=== PATIENT | female | born 1935 | race African-American/Black ===

== ENCOUNTER 2018-06-26 21:12 | Inpatient (IN) | payer MEDICARE, BC ==
[~2018-06-26 21:12] MED LIST: ISOVUE-370 76%-LOCM 1 ML ONE
[2018-06-26] MEDS ORDERED: Furosemide 40 MG/4 ML VIAL ONE (21:42)
[2018-06-26] MEDS ORDERED: Nitroglycerin 0.4 MG TAB (25 Tab Bottle) ONE (21:42)
[2018-06-26] MEDS ORDERED: Nitroglycerin 2% Ointment 1 INCH/1 GM Packet ONE (21:42)
[2018-06-26 21:47] LABS: #Basophils 0.1 thou/uL (0.0-0.2); #Eosinphils 0.1 thou/uL (0.0-0.7); #Lymphocytes 2.1 thou/uL (1.20-3.40); #Monocytes 0.6 thou/uL (0.11-0.59); #Neutrophils 3.9 thou/uL (1.40-6.50); %Basophils 0.8 % (0.0-1.0); %Eosinophils 1.5 % (0.0-10.0); %Lymphocytes 31.2 % (21.0-51.0); %Monocytes 8.5 % (0.0-10.0); %Neutrophils 57.9 % (42.0-75.0); Hemoglobin 13.2 g/dL (12.0-16.0); Mean Corpuscular HGB CONC 31.9 g/dL (32.0-36.0); Mean Corpuscular Hemoglobin 31.9 pg (27.0-31.0); Mean Corpuscular Volume 99.7 fL (78.0-98.0); Mean Platelet Volume 10.8 fL (7.4-10.4); Platelet Count 134 thou/uL (130-400); Red Blood Cell (RBC) Count 4.13 mill/uL (4.20-5.40); White Blood Cell (WBC) Count 6.6 thou/uL (4.8-10.8)
[2018-06-26 22:13] LABS: CKMB 3.8 ng/mL (0-6.6); Troponin I 0.079 ng/mL (< 0.028)
--- NOTE | 2018-06-26 22:37 | RAD ---
AP VIEW CHEST: 06/26/18 HISTORY: Dyspnea. Shortness of breath. AP view chest is obtained on 06/26/18. Comparison made to previous exam from 01/19/16. AP view chest demonstrates cardiomegaly. A dual lead intracardiac defibrillator is seen. Pulmonary va scular congestion seen. No evidence of effusions or pneumonia seen. IMPRESSION: Cardiomegaly and pulmonary vascular congestion, otherwise unremarkable AP view chest. POS: [facility]
[2018-06-26 22:44] LABS: ALT (SGPT) 43 U/L (8-55); AST (SGOT) 26 U/L (5-34); Albumin 4.3 g/dL (3.4-4.8); Alkaline Phosphatase 57 U/L (40-150); Anion Gap 13 mmol/L (10-20); BUN (Urea Nitrogen) 13 mg/dL (9.8-20.1); Bilirubin, Total 0.9 mg/dL (0.2-1.2); CK (CPK) 250 U/L (29-168); Calc. Creatinine Clearance 0 mL/min (70-130); Calcium 9.4 mg/dL (7.8-10.44); Carbon Dioxide 29 mmol/L (23-31); Chloride 101 mmol/L (98-107); Estimated GFR-MDRD 63; Globulin 3.3 g/dL (2.4-3.5); Glucose 231 mg/dL (83-110); Lipase 15 U/L (8-78); Potassium 3.9 mmol/L (3.5-5.1); Protein, Total 7.6 g/dL (6.0-8.3); Sodium 139 mmol/L (136-145)
--- NOTE | 2018-06-26 23:38 | CT ---
CONTRAST ENHANCED CTA CHEST: 06/26/18 HISTORY: Bilateral lower extremity swelling. Contrast enhanced CTA chest demonstrates a dual lead intracardiac defibrillator. Diffuse ground glass opacities seen throughout the lungs compatible with possible pulmonary edema. Cardiomegaly is seen. Coronary artery calcifications seen. No evidence of filling defects seen in the pulmonary arteries to suggest pulmonary emboli. There is an area of hyperdensity seen in the mid pole of the left kidney possibly representing a hype rdense cyst or mass which had internal hemorrhage. Correlate with dedicated elective urologic evaluat ion of the left renal lesion. No definite evidence of osseous lesions seen. IMPRESSION: No evidence of pulmonary emboli seen. POS: [facility]
[2018-06-27 00:37] VITALS: BMI 36.3
[2018-06-27] MEDS ORDERED: Ondansetron PF 4 MG/2 ML Vial IVP PRN (00:53)
[2018-06-27] MEDS ORDERED: Ondansetron ODT 4 MG TAB SL PRN (00:53)
--- NOTE | 2018-06-27 01:36 | PDOC.FPRHP ---
- History of Present Illness Chief Complaint: SOB, leg swelling History of Present Illness: 82 yo F with CHFrEF with AICD placement presents with SOB and lower leg swelling. She has a longstanding history of CHFrEF in which she takes max dose lasix (80mg BID). At baseline she is mildly SOB with lower leg swelling for the past 6 months but her symptoms had worsened to the point where she "couldn't get dressed" without feeling SOB. She denies chest pain, REA, nausea, diaphoresis. ED Course: ASA, Lasix 40 x1, TD Nitro, SL Nitro - Allergies/Adverse Reactions Allergies Allergy/AdvReac Type Severity Reaction Status Date / Time Penicillins Allergy Severe Hives Verified 06/27/18 01:37 verapamil HCl [From Calan] Allergy Severe Swollen Verified 06/27/18 01:37 Lips codeine Allergy Intermediate Rash Verified 06/27/18 01:37 tramadol Allergy Intermediate Rash Verified 06/27/18 01:37 ROYAL Inhibitors Allergy COUGH Verified 06/27/18 01:37 ciprofloxacin Allergy Nausea Verified 06/27/18 02:07 morphine Allergy Nausea Verified 06/27/18 01:37 nitrofurantoin Allergy Nausea Verified 06/27/18 02:07 [From Macrobid] - Home Medications Medication Instructions Recorded Confirmed Type Atorvastatin Calcium [Lipitor] 80 mg PO HS 02/05/14 06/27/18 History Levothyroxine [Synthroid] 137 mcg PO DAILY 02/05/14 06/27/18 History Carvedilol [Coreg] 25 mg PO BID 10/25/16 06/27/18 History Diclofenac Sodium [Voltaren] 100 gm TP ASDIR PRN 10/25/16 06/27/18 History Insulin Glargine,Hum.Rec.Anlog 56 - 70 units SC QAM 10/25/16 06/27/18 History [Lantus Solostar] Sotalol HCl [Sotalol] 120 mg PO BID 10/25/16 06/27/18 History Acetaminophen [Tylenol Regular 650 mg PO Q4H PRN #0 tab 01/07/17 06/27/18 Rx Strength] Albuterol Sulfate [Proventil Hfa] 2 puff INH Q6H PRN #0 inh 01/07/17 06/27/18 Rx Ezetimibe [Zetia] 10 mg PO DAILY tab 01/07/17 06/27/18 Rx Gabapentin [Neurontin] 300 mg PO TID cap 01/07/17 06/27/18 Rx HumaLOG [HumaLOG Vial] 5 units SC TID-WM vial 01/07/17 06/27/18 Rx Multivit, Therapeutic [Theragran] 1 tab PO DAILY tab 01/07/17 06/27/18 Rx Potassium Chloride [K-Dur] 20 meq PO Q2D tab 01/07/17 06/27/18 Rx Potassium Chloride [Klor-Con 10] 10 meq PO Q2D tab 01/07/17 06/27/18 Rx Spironolactone [Aldactone] 50 mg PO QAM-WM tab 01/07/17 06/27/18 Rx Amlodipine Besylate [amLODIPine 5 mg PO DAILY 01/27/17 06/27/18 History Besylate] Aspirin [Ecotrin Low Strength] 81 mg PO QAM 01/27/17 06/27/18 History ALPRAZolam [Xanax] 0.25 mg PO BID PRN 06/27/18 06/27/18 History Albuterol Sulfate [Albuterol 1.25 mg NEB QID 06/27/18 06/27/18 History Sulfate Neb] Artificial Tear Radha 15ml Bot 1 drop EA EYE DAILY 06/27/18 06/27/18 History [Tears Renewed] Ascorbate Calcium [Vitamin C] 500 mg PO DAILY 06/27/18 06/27/18 History Bisacodyl [Dulcolax] 5 mg PO TID-WM 06/27/18 06/27/18 History Calcium Carbonate [Calcium] 500 mg PO DAILY 06/27/18 06/27/18 History Furosemide [Lasix] 80 mg PO BID 06/27/18 06/27/18 History HYDROcodone/Acetaminophen [Lydia 1 each PO Q6H PRN 06/27/18 06/27/18 History 10-325 Tablet] Magnesium Oxide [Magnesium] 400 mg PO DAILY 06/27/18 06/27/18 History Valencia-3 Fatty Acids/Fish Oil [Fish 1 cap PO DAILY 06/27/18 06/27/18 History Oil 1,000 mg Capsule] Pantoprazole [Protonix] 40 mg PO DAILY 06/27/18 06/27/18 History Zinc Amino Acid Chelate [Zinc] 50 mg PO DAILY 06/27/18 06/27/18 History - History PMHx: Hx of bladder CA s/p tumor removal, atrial tachycardia s/p ablation, HLD, CHFrEF, Cardiomyopathy, HTN, Hypothyroid, DM2, atrial arrh PSHx: Debrillator placement, bladder tumor excision, cataracts FHx: CAD, CVA Social: Denies tobacco, etoh, drugs - Review of Systems General: reports: weight/appetite/sleep changes. denies: fever/chills ENT: denies: nasal congestion, rhinorrhea Respiratory: reports: cough, shortness of breath, exercise intolerance Cardiovascular: reports: edema. denies: chest pain, palpitation Gastrointestinal: reports: diarrhea. denies: nausea, vomiting, constipation Genitourinary: denies: dysuria, discharge Skin: denies: rashes, lesions Musculoskeletal: denies: pain, tenderness, stiffness, swelling Neurological: denies: numbness, syncope Psychological: denies: anxiety, depression - Vital signs BP: [191/93] HR: [76] RR: [16] Tmax: [98.1] Pox: [98]% on [RA] Wt: [95] - Physical Exam Constitutional: NAD, awake, alert and oriented, well developed HEENT: normocephalic and atraumatic, PERRLA, EOMI, conjunctiva clear Neck: supple, FROM Chest: no-tender to palpation, no lesions Heart: RRR, no murmurs/rubs/gallops, pulses present Lungs: CTAB, no rales/rhonchi, no wheezing -Lungs: decreased breath sounds in lower bilateral lobes Abdomen: soft, non-tender -Abdomen: mildly distended, no peritoneal signs Musculoskeletal: normal structure, normal tone -Musculoskeletal: BLE 2+ pitting edema up to mid anterior shins Neurological: no focal deficit Skin: no rash/lesions, good turgor, capillary refill <2 seconds Heme/Lymphatic: no unusual bruising or bleeding, no purpura, no petechia Psychiatric: normal mood and affect FMR H&P: Results - Labs Result Diagrams: 06/27/18 04:23 06/27/18 04:23 Lab results: WBC 6.6 thou/uL (4.8-10.8) 06/26/18 21:38 Hgb 13.2 g/dL (12.0-16.0) 06/26/18 21:38 Hct 41.2 % (36.0-47.0) 06/26/18 21:38 MCV 99.7 fL (78.0-98.0) H 06/26/18 21:38 Plt Count 134 thou/uL (130-400) 06/26/18 21:38 Neutrophils % 57.9 % (42.0-75.0) 06/26/18 21:38 Sodium 139 mmol/L (136-145) 06/26/18 21:38 Potassium 3.9 mmol/L (3.5-5.1) 06/26/18 21:38 Chloride 101 mmol/L (98-107) 06/26/18 21:38 Carbon Dioxide 29 mmol/L (23-31) 06/26/18 21:38 BUN 13 mg/dL (9.8-20.1) 06/26/18 21:38 Creatinine 1.02 mg/dL (0.6-1.1) 06/26/18 21:38 Glucose 231 mg/dL (83-110) H 06/26/18 21:38 Calcium 9.4 mg/dL (7.8-10.44) 06/26/18 21:38 Total Bilirubin 0.9 mg/dL (0.2-1.2) 06/26/18 21:38 AST 26 U/L (5-34) 06/26/18 21:38 ALT 43 U/L (8-55) 06/26/18 21:38 Alkaline Phosphatase 57 U/L (40-150) 06/26/18 21:38 Creatine Kinase 250 U/L (29-168) H 06/26/18 21:38 CK-MB (CK-2) 3.8 ng/mL (0-6.6) 06/26/18 21:38 B-Natriuretic Peptide 440.7 pg/mL (0-100) H 06/26/18 21:38 Serum Total Protein 7.6 g/dL (6.0-8.3) 06/26/18 21:38 Albumin 4.3 g/dL (3.4-4.8) 06/26/18 21:38 Lipase 15 U/L (8-78) 06/26/18 21:38 FMR H&P: A/P - Problem List (1) Hypertensive urgency Current Visit: Yes Status: Acute Code(s): I16.0 - HYPERTENSIVE URGENCY (2) Acute exacerbation of CHF (congestive heart failure) Current Visit: No Status: Acute Code(s): I50.9 - HEART FAILURE, UNSPECIFIED (3) Hyperlipidemia associated with type 2 diabetes mellitus Current Visit: No Status: Acute Code(s): E11.69 - TYPE 2 DIABETES MELLITUS WITH OTHER SPECIFIED COMPLICATION; E78.5 - HYPERLIPIDEMIA, UNSPECIFIED (4) CHF (congestive heart failure) Current Visit: No Status: Chronic Code(s): I50.9 - HEART FAILURE, UNSPECIFIED (5) History of neoplasm of bladder Current Visit: No Status: Chronic Code(s): Z87.898 - PERSONAL HISTORY OF OTHER SPECIFIED CONDITIONS (6) Hypertension Current Visit: No Status: Chronic Code(s): I10 - ESSENTIAL (PRIMARY) HYPERTENSION (7) Hypothyroidism Current Visit: No Status: Chronic Code(s): E03.9 - HYPOTHYROIDISM, UNSPECIFIED Qualifiers: Hypothyroidism type: unspecified Qualified Code(s): E03.9 - Hypothyroidism , unspecified - Plan 82 yo F with CHFrEF and AICD here for acute CHF exacerbation and hypertensive urgency 1. Decompensated chronic heart failure -s/p lasix 40mg in ED -trops indeterminate, will continue to trend -elevated Ddimer, CTA negative for PE -lasix 80mg BID, strict I/O, daily weights, O2 prn -will resume home spironolactone, hold beta steve -last echo in 2015 showing EF of 40-45%, may have had outpt echo with Dr. Morley -will request records, can consider repeat echo if not had one recently 2. Hypertensive urgency -BP in ED SBP >200, asx at this time -likely 2/2 to hypervolemia -s/p TD and SL Nitro in ED -will resume home meds, add PRN anti hypertensives -continue to monitor BPs, should improve with diuresis 3. Non-ischemic cardiomyopathy -follows with Dr. Morley outpt -has f/u appt next month #chronic CHF -see #1 # Hypothyroidism -TSH on 05/29/18 was elevated at 6 -will recheck & resume home synthroid #Chronic HTN -resume home meds #DM2 -resume home meds -mild SS #HLD -resume home meds dvt ppx: lovenox gi ppx: home protonix Disposition/LOS: <2 midnights FMR H&P: Upper Level - Pertinent history 82AAF p/w increasing SOB and BLE edema. This is an ongoing issue but she felt more tired than usual today which prompted her ER visit. Last TTE per review of records in [facility] shows an EF of 40%. She has a cardiac history that includes a-fib s/p ablations and bi-ventricular ICD placement. She normally takes coumadin but this has been discontinued due to hematuria. 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 Menard. Today, patient denies CP, palpitations, diaphoresis, n/v/d. ED: ASA 324 mg, Lasix 40mg IV, Nitro-bid 1", nitro SL 0.4mg - Pertinent findings vitals: 178/72 mmHg 86 bpm 20 RRR 97% on RA 98.9F Gen: A&Ox3; in no acute distress CV: RRR; no murmurs Pulm: CTA-B Abd: soft; nonTTP; non distended Skin: no rashes or lesions Extremities: 2+ pitting edema to knees D-dimer: 1.76 B CK: 250 trop: .079 BNP: 440 CTA chest: no pulmonary embolism CXR: cardiomegaly and pulmonary vascular congestion - Plan Date/Time: 06/27/18 0130 HFrEF exacerbation: admit to tele/obs given history of biventricular ICD placement and a-fib. Nonischemic cardiomyopathy: last TTE in 2015 shows an EF of 40%. She sees Dr. Caleb Morley in the OP setting. Continue home medications History of transitional cell carcinoma: s/p transurethral resection by Dr. Menard HTN: pressures elevated in ED due to volume overload. Expect improvement with continued diuresis. Restart home medications and order PRN medications HLD: continue home medications Hypothyroidism: continue home dose of synthroid Atrial fibrillation: s/p junctional ablation, now with AICD. Monitor on Tele. Patient has d/c coumadin due to #2. CTA negative for PE in ED DMII: restart home insulin regimen. Moderate SSI with accuchecks qACHS CKDII: GFR at baseline. Expect an increase in Cr 2/2 aggressive diuresis with Lasix History of restrictive lung disease: diagnosed and managed by Dr. Amato in OP setting. No respiratory issues at this time. I, Liam Sim, have evaluated this patient and agree with findings/plan as outlined by landscape maintenance internship resident. Pertinent changes/additions are listed here. Attending Addendum - Attending Addendum Date/Time: 06/26/18 8804 I personally evaluated the patient and discussed the management with Dr. Rodgers and Dr. Sim I agree with the History, Examination, Assessment and Plan documented above with any addition or exceptions noted below. 82 yo female with history of HFrEF admitted for acute exacerbation Patient reports progressive SOB with minimal activity and occasionally at rest. VS reviewed. Labs reviewed. Imaging reviewed. 1. HFrEF with AICD: Recent outpatient ECHO performed last week. Patient unsure of EF at that time. Unsure etiology of current exacerbation. Appears to not be on the same home meds as previously that could help with HF exacerbations. Follow up with cards off. ASA and Statin. Strict I/Os and daily wts. Fluid restriction. Admit to tele. Lasix as needed. Trend labs and EKG. 2. HTN urgency: Could be explained by change in medications. Will review MAR with pharmacy/PCP/Cards. 3. A-fib: Anticoag held due to bladder cancer. Patient aware of risk. On tele monitoring. 4. CKDII: Monitor closely. 5. Hypothyroidism: Check TSH. Adjust meds as needed. 6. DM: Adjust meds to prevent severe hyperglycemia. Adjust home meds as needed. Minimized risk as appropriate. Susana
[2018-06-27] MEDS ORDERED: Dextrose 50% Abboject 50 ML SYRINGE SLOW IVP PRN (02:02)
[2018-06-27] MEDS ORDERED: Dextrose 5% in Water 1,000 ML IV PRN (02:02)
[2018-06-27] MEDS ORDERED: Enoxaparin Sodium 30 MG/0.3 ML SYRINGE SC SCH (02:15)
--- NOTE | 2018-06-27 02:16 | PDOC.FPRHP ---
- Allergies/Adverse Reactions Allergies Allergy/AdvReac Type Severity Reaction Status Date / Time Penicillins Allergy Severe Hives Verified 01/27/17 10:05 verapamil HCl [From Calan] Allergy Severe Swollen Verified 01/27/17 10:05 Lips codeine Allergy Intermediate Rash Verified 01/27/17 10:05 tramadol Allergy Intermediate Rash Verified 01/27/17 10:05 ROYAL Inhibitors Allergy COUGH Verified 01/27/17 10:05 morphine Allergy Nausea Verified 01/27/17 10:05 - Home Medications Medication Instructions Recorded Confirmed Type Atorvastatin Calcium [Lipitor] 80 mg PO HS 02/05/14 01/27/17 History Levothyroxine [Synthroid] 150 mcg PO DAILY 02/05/14 01/27/17 History Carvedilol [Coreg] 25 mg PO BID 10/25/16 01/27/17 History Diclofenac Sodium [Voltaren] 100 gm TP ASDIR 10/25/16 01/27/17 History Insulin Glargine,Hum.Rec.Anlog 56 units SC QAM 10/25/16 01/27/17 History [Lantus Solostar] Sotalol HCl [Sotalol] 120 mg PO BID 10/25/16 01/27/17 History ALPRAZolam [Xanax] 0.25 mg PO BID tab 01/07/17 01/27/17 Rx Acetaminophen [Tylenol Regular 650 mg PO Q4H PRN #0 tab 01/07/17 01/27/17 Rx Strength] Albuterol Sulfate [Proventil Hfa] 2 puff INH Q6H PRN #0 inh 01/07/17 01/27/17 Rx Artificial Tear Radha 15ml Bot 0 drop EA EYE DAILY bot 01/07/17 01/27/17 Rx [Tears Renewed] Betamethasone Valerate [Valisone 0 gm TOP BID PRN #0 tube 01/07/17 01/27/17 Rx 0.1% Cream] Cyclobenzaprine [Flexeril] 10 mg PO TID PRN #0 tab 01/07/17 01/27/17 Rx Docusate [Colace] 100 mg PO BID #30 cap 01/07/17 01/27/17 Rx Ezetimibe [Zetia] 10 mg PO DAILY tab 01/07/17 01/27/17 Rx Furosemide [Lasix] 40 mg PO BID tab 01/07/17 01/27/17 Rx Gabapentin [Neurontin] 300 mg PO TID cap 01/07/17 01/27/17 Rx HYDROcodone Bit/APAP 7.5/325 1 tab PO Q6H PRN #0 tab 01/07/17 01/27/17 Rx [[place]] HumaLOG [HumaLOG Vial] 5 units SC TID-WM vial 01/07/17 01/27/17 Rx Multivit, Therapeutic [Theragran] 1 tab PO DAILY tab 01/07/17 01/27/17 Rx Potassium Chloride [K-Dur] 20 meq PO Q2D tab 01/07/17 01/27/17 Rx Potassium Chloride [Klor-Con 10] 10 meq PO Q2D tab 01/07/17 01/27/17 Rx Spironolactone [Aldactone] 50 mg PO QAM-WM tab 01/07/17 01/27/17 Rx Albuterol Sulfate [Proair HFA] 2 puff INH Q6HR PRN 01/27/17 01/27/17 History Amlodipine Besylate [amLODIPine 5 mg PO DAILY 01/27/17 01/27/17 History Besylate] Aspirin [Ecotrin Low Strength] 81 mg PO QAM 01/27/17 01/27/17 History - History PMHx: PSHx: FHx: Social: - Vital signs BP: [] HR: [] RR: [] Tmax: [] Pox: []% on [] Wt: [] FMR H&P: Results - Labs Result Diagrams: 06/26/18 21:38 06/26/18 21:38 Lab results: WBC 6.6 thou/uL (4.8-10.8) 06/26/18 21:38 Hgb 13.2 g/dL (12.0-16.0) 06/26/18 21:38 Hct 41.2 % (36.0-47.0) 06/26/18 21:38 MCV 99.7 fL (78.0-98.0) H 06/26/18 21:38 Plt Count 134 thou/uL (130-400) 06/26/18 21:38 Neutrophils % 57.9 % (42.0-75.0) 06/26/18 21:38 Sodium 139 mmol/L (136-145) 06/26/18 21:38 Potassium 3.9 mmol/L (3.5-5.1) 06/26/18 21:38 Chloride 101 mmol/L (98-107) 06/26/18 21:38 Carbon Dioxide 29 mmol/L (23-31) 06/26/18 21:38 BUN 13 mg/dL (9.8-20.1) 06/26/18 21:38 Creatinine 1.02 mg/dL (0.6-1.1) 06/26/18 21:38 Glucose 231 mg/dL (83-110) H 06/26/18 21:38 Calcium 9.4 mg/dL (7.8-10.44) 06/26/18 21:38 Total Bilirubin 0.9 mg/dL (0.2-1.2) 06/26/18 21:38 AST 26 U/L (5-34) 06/26/18 21:38 ALT 43 U/L (8-55) 06/26/18 21:38 Alkaline Phosphatase 57 U/L (40-150) 06/26/18 21:38 Creatine Kinase 250 U/L (29-168) H 06/26/18 21:38 CK-MB (CK-2) 3.8 ng/mL (0-6.6) 06/26/18 21:38 B-Natriuretic Peptide 440.7 pg/mL (0-100) H 06/26/18 21:38 Serum Total Protein 7.6 g/dL (6.0-8.3) 06/26/18 21:38 Albumin 4.3 g/dL (3.4-4.8) 06/26/18 21:38 Lipase 15 U/L (8-78) 06/26/18 21:38 FMR H&P: Upper Level - Plan Date/Time: 06/27/18 0115 I, [], have evaluated this patient and agree with findings/plan as outlined by paid intern resident. Pertinent changes/additions are listed here.
[2018-06-27] MEDS ORDERED: hydrALAZINE 20 MG/ML VIAL SLOW IVP SCH (02:30)
[2018-06-27] MEDS: Acetaminophen 325 MG TAB PO PRN ×2 (03:11→12:02)
[2018-06-27 04:47] LABS: #Eosinphils 0.1 thou/uL (0.0-0.7); #Lymphocytes 1.9 thou/uL (1.20-3.40); #Monocytes 0.6 thou/uL (0.11-0.59); #Neutrophils 3.2 thou/uL (1.40-6.50); %Basophils 0.8 % (0.0-1.0); %Eosinophils 1.6 % (0.0-10.0); %Lymphocytes 32.4 % (21.0-51.0); %Monocytes 10.3 % (0.0-10.0); %Neutrophils 54.9 % (42.0-75.0); Hemoglobin 12.6 g/dL (12.0-16.0); Mean Corpuscular HGB CONC 33.5 g/dL (32.0-36.0); Mean Corpuscular Hemoglobin 34.4 pg (27.0-31.0); Mean Platelet Volume 10.4 fL (7.4-10.4); Platelet Count 130 thou/uL (130-400); RBC Distribution Width 14.5 % (11.5-14.5); Red Blood Cell (RBC) Count 3.68 mill/uL (4.20-5.40); White Blood Cell (WBC) Count 5.9 thou/uL (4.8-10.8)
[2018-06-27 04:57] LABS: ALT (SGPT) 37 U/L (8-55); AST (SGOT) 19 U/L (5-34); Albumin 4.1 g/dL (3.4-4.8); Alkaline Phosphatase 55 U/L (40-150); Anion Gap 14 mmol/L (10-20); BUN (Urea Nitrogen) 12 mg/dL (9.8-20.1); Bilirubin, Total 0.9 mg/dL (0.2-1.2); Calc. Creatinine Clearance 69 mL/min (70-130); Calcium 9.3 mg/dL (7.8-10.44); Carbon Dioxide 29 mmol/L (23-31); Chloride 100 mmol/L (98-107); Estimated GFR-MDRD 66; Glucose 266 mg/dL (83-110); Potassium 3.5 mmol/L (3.5-5.1); Protein, Total 7.1 g/dL (6.0-8.3); Sodium 139 mmol/L (136-145)
[2018-06-27 05:00] LABS: Troponin I 0.083 ng/mL (< 0.028)
[2018-06-27] MEDS ORDERED: Furosemide 40 MG/4 ML VIAL SLOW IVP SCH ×2 (06:00)
[2018-06-27] MEDS ORDERED: Nitroglycerin 2% Ointment 1 INCH/1 GM Packet TOP SCH (06:00)
[2018-06-27] MEDS: Levothyroxine Sodium 112 MCG TAB PO SCH (06:11)
[2018-06-27] MEDS: Levothyroxine Sodium 25 MCG TAB PO SCH (06:11)
[2018-06-27] MEDS: Spironolactone 25 MG TAB PO SCH (08:40)
[2018-06-27] MEDS: Ascorbic Acid 500 mg Chewable Tablet PO SCH (08:41)
[2018-06-27] MEDS: Fish Oil 1,000 MG CAP PO SCH (08:41)
[2018-06-27] MEDS: Potassium Chloride 20 MEQ TAB PO SCH (08:41)
[2018-06-27] MEDS: Multivit, Therapeutic 1 TAB PO SCH (08:41)
[2018-06-27] MEDS: Gabapentin 300 MG CAP PO SCH ×3 (08:41→20:36)
[2018-06-27] MEDS: Amlodipine 5 MG TAB PO SCH (08:41)
--- NOTE | 2018-06-27 08:41 | PDOC.FM ---
- Subjective Subjective: Patient reports she is doing better overnight from a respiratory standpoint, is not becoming SOB at rest. She reports her leg edema is somewhat improved. Not exactly sure what is causing her current episode, has not missed any doses or experienced increased pain causing NSAID use. Does report that her BG has been increased, but is not sure why. Endorses medication and diet compliance. - Objective MAR Reviewed: Yes Vital Signs & Weight: Vital Signs (12 hours) Temp Pulse Resp BP BP Pulse Ox 06/27/18 07:49 99 F 79 18 121/55 L 99 06/27/18 05:55 73 169/86 H 06/27/18 05:00 176/90 H 06/27/18 04:00 98.2 F 74 16 192/86 H 100 06/27/18 02:58 76 186/99 H 186/99 H 06/27/18 00:32 98.4 F 74 16 191/93 H 97 Weight Weight 97.477 kg Result Diagrams: 06/27/18 04:23 06/27/18 04:23 <Devon Aquino M - Last Filed: 06/27/18 09:26> - Objective Vital Signs & Weight: Vital Signs (12 hours) Temp Pulse Resp BP BP Pulse Ox 06/27/18 07:49 99 F 79 18 121/55 L 99 06/27/18 05:55 73 169/86 H 06/27/18 05:00 176/90 H 06/27/18 04:00 98.2 F 74 16 192/86 H 100 06/27/18 02:58 76 186/99 H 186/99 H 06/27/18 00:32 98.4 F 74 16 191/93 H 97 Weight Weight 97.477 kg Result Diagrams: 06/27/18 04:23 06/27/18 04:23 <Aurora Dill - Last Filed: 06/27/18 23:18> Phys Exam - Physical Examination Constitutional: NAD HEENT: moist MMs Respiratory: no wheezing, clear to auscultation bilateral Cardiovascular: RRR Gastrointestinal: positive bowel sounds b/l 2+ pitting edema of LE to the mid calf Neurological: normal sensation, moves all 4 limbs Psychiatric: A&O x 3 <Devon Aquino - Last Filed: 06/27/18 09:26> Dx/Plan (1) Hypertensive urgency Code(s): I16.0 - HYPERTENSIVE URGENCY Status: Acute (2) Acute exacerbation of CHF (congestive heart failure) Code(s): I50.9 - HEART FAILURE, UNSPECIFIED Status: Acute (3) Diabetes mellitus type 2, uncontrolled Code(s): E11.65 - TYPE 2 DIABETES MELLITUS WITH HYPERGLYCEMIA Status: Chronic Qualifiers: Qualified Code(s): E11.65 - Type 2 diabetes mellitus with hyperglycemia (4) History of atrial fibrillation Code(s): Z86.79 - PERSONAL HISTORY OF OTHER DISEASES OF THE CIRCULATORY SYSTEM Status: Chronic (5) History of neoplasm of bladder Code(s): Z87.898 - PERSONAL HISTORY OF OTHER SPECIFIED CONDITIONS Status: Chronic (6) Hypertension Code(s): I10 - ESSENTIAL (PRIMARY) HYPERTENSION Status: Chronic (7) Hypothyroidism Code(s): E03.9 - HYPOTHYROIDISM, UNSPECIFIED Status: Chronic Qualifiers: Hypothyroidism type: unspecified Qualified Code(s): E03.9 - Hypothyroidism , unspecified - Plan Plan: CHF exacerbation: continue with increased IV lasix dose at 80mg bid, was taking 80mg po bid at home. K is 3.5 so we will replace that to make sure it stays in an appropriate range. Also check a mag level. Tele strip shows atrial pacing. DMII: suspect this could be the source of the CHF exacerbation. She is elevated here so we will try to titrate her basal insulin to keep her controlled, but will likely need management in the outpatient setting. HTN urgency: nurses got a different cuff and patient's BP were in a normal range so the elevated BP on admission could be due to bad cuff reading. Continue to [facility]. Hypothyroid: continue with current regimen. <Devon Aquino - Last Filed: 06/27/18 09:26> Attending Addendum - Attending Addendum Date/Time: 06/27/18 0645 I personally evaluated the patient and discussed the management with Dr. Aquino I agree with the History, Examination, Assessment and Plan documented above with any addition or exceptions noted below. 82 yo female with history of HFrEF admitted for acute exacerbation HD#1 Improved symptoms with frequent voiding. VS reviewed. Labs reviewed. Imaging reviewed. 1. HFrEF with AICD: Recent outpatient ECHO performed last week. Unsure etiology of current exacerbation but likely dietary. Strict I/Os and daily wts. Fluid restriction. Continue lasix as needed. Review cardiac meds with pharmacy/PCP -- BB, ARB, bidil, etc 2. HTN urgency: Could be explained by change in medications. Will review MAR with pharmacy/PCP/Cards. 3. A-fib: Anticoag held due to bladder cancer. Patient aware of risk. On tele monitoring. CTA negative. 4. CKDII: Monitor closely. 5. Hypothyroidism: Stable. 6. DM: Adjust meds to prevent severe hyperglycemia. Adjust home meds as needed. Minimized risk as appropriate. Susana <Aurora Dill - Last Filed: 06/27/18 23:18>
[2018-06-27] MEDS: HumaLOG 300 UNITS/3 ML VIAL SC SCH ×3 (08:42→18:08)
[2018-06-27] MEDS ORDERED: Levothyroxine 150 MCG TAB PO SCH (09:00)
[2018-06-27] MEDS ORDERED: Carvedilol 25 MG TAB PO SCH (09:00)
[2018-06-27] MEDS ORDERED: Aspirin 325 MG TAB PO SCH (09:00)
[2018-06-27] MEDS: Insulin Glargine 56 UNITS in Pre-Filled Syringe 1 EACH SC SCH (09:03)
[2018-06-27] MEDS ORDERED: Polyethylene Glycol 3350 17 GM Packet PO SCH ×2 (14:28→14:45)
[2018-06-27] MEDS: Senokot S 8.6-50 MG TAB PO SCH (20:35)
[2018-06-27] MEDS: Atorvastatin Calcium 40 MG TAB PO SCH (20:36)
[2018-06-28] MEDS: Levothyroxine Sodium 112 MCG TAB PO SCH (05:18)
[2018-06-28] MEDS: Levothyroxine Sodium 25 MCG TAB PO SCH (05:18)
[2018-06-28 05:52] LABS: Anion Gap 11 mmol/L (10-20); BUN (Urea Nitrogen) 14 mg/dL (9.8-20.1); Calc. Creatinine Clearance 81 mL/min (70-130); Calcium 9.2 mg/dL (7.8-10.44); Carbon Dioxide 32 mmol/L (23-31); Chloride 101 mmol/L (98-107); Estimated GFR-MDRD 78; Glucose 132 mg/dL (83-110); Potassium 3.7 mmol/L (3.5-5.1); Sodium 140 mmol/L (136-145)
--- NOTE | 2018-06-28 06:40 | PDOC.FM ---
- Subjective Subjective: Ms. Mayfield is resting comfortably in bed and has no new complaints - Objective Vital Signs & Weight: Vital Signs (12 hours) Temp Pulse Resp BP BP Pulse Ox 06/28/18 03:44 98.0 F 84 20 174/94 H 94 L 06/27/18 23:13 98.5 F 80 20 145/70 H 100 06/27/18 20:36 98.6 F 82 18 179/84 H 100 Weight Weight 96.933 kg I&O: 06/26/18 06/27/18 06/28/18 06:59 06:59 05:59 Intake Total 1440 Output Total 2900 Balance -1460 Result Diagrams: 06/27/18 04:23 06/28/18 05:15 <Minesh Mak - Last Filed: 06/28/18 11:03> - Objective Vital Signs & Weight: Vital Signs (12 hours) Temp Pulse Resp BP BP Pulse Ox 06/28/18 08:16 98.9 F 80 18 172/87 H 100 06/28/18 03:44 98.0 F 84 20 174/94 H 94 L 06/27/18 23:13 98.5 F 80 20 145/70 H 100 Weight Weight 96.933 kg I&O: 06/27/18 06/28/18 06/29/18 07:59 06:59 06:59 Intake Total Output Total Balance Result Diagrams: 06/27/18 04:23 06/28/18 05:15 <Aurora Dill - Last Filed: 06/28/18 19:41> Phys Exam - Physical Examination HEENT: PERRLA Neck: no nodes Respiratory: no wheezing, no rales, no rhonchi, clear to auscultation bilateral Cardiovascular: RRR, no significant murmur, no rub Gastrointestinal: soft, non-tender, no distention Musculoskeletal: no edema, pulses present Neurological: moves all 4 limbs <Minesh Mak - Last Filed: 06/28/18 11:03> Dx/Plan - Plan Plan: Decompensated chronic heart failure -trops downtrended, elevated Ddimer, CTA negative for PE -strict I/O, daily weights, O2 prn -will resume home spironolactone, consider restarting beta steve today -last echo in 2016 showing EF of 40-45%, recently had outpt echo with Dr. Morley -restart home dose 80 mg lasix bid Hypertensive urgency -will resume home meds, PRN anti hypertensives -continue to monitor BPs, consider adding additional medications today Non-ischemic cardiomyopathy -follows with Dr. Morley outpt -has f/u appt next month Hypothyroidism -TSH on 05/29/18 was elevated at 6 -will recheck & resume home synthroid Chronic HTN -resume home meds DM2 -resume home meds -mild SS, improved HLD -resume home meds dvt ppx: lovenox gi ppx: home protonix Dispo: continue to diurese today, improve BP control <Minesh Mak - Last Filed: 06/28/18 11:03> Attending Addendum - Attending Addendum Date/Time: 06/28/18 0855 I personally evaluated the patient and discussed the management with Dr. Mak I agree with the History, Examination, Assessment and Plan documented above with any addition or exceptions noted below. 82 yo female with history of HFrEF admitted for acute exacerbation HD#2 Still with some edema to LE. No SOB or CABRAL per patient. BP still elevated. Not all home meds restarted yesterday. VS reviewed. Labs reviewed. 1. Acute exacerbation: HFrEF with AICD. Recent outpatient ECHO performed last week. Will obtain records tomorrow. Unsure etiology of current exacerbation but likely dietary and/or HTN urgency. Strict I/Os and daily wts. Fluid restriction. Continue lasix as needed. Restart BB, ARB, spironolactone. 2. HTN urgency: Called pharmacy to verify all meds. Add bidil vs CCB vs Imdur if remains elevated after restarting home meds. 3. A-fib: Anticoag held due to bladder cancer. Patient aware of risk. On tele monitoring. CTA negative. 4. CKDII: Renal function improved. 5. Hypothyroidism: Stable. 6. DM: Adjust meds to prevent severe hyperglycemia. Adjust home meds as needed. Add BP as needed. Minimized risk as appropriate. Likely d/c this afternoon vs AM. ABrayMD <Aurora Dill - Last Filed: 06/28/18 19:41>
[2018-06-28] MEDS: Senokot S 8.6-50 MG TAB PO SCH ×2 (09:04→21:05)
[2018-06-28] MEDS: Amlodipine 5 MG TAB PO SCH (09:04)
[2018-06-28] MEDS: Fish Oil 1,000 MG CAP PO SCH (09:04)
[2018-06-28] MEDS: Multivit, Therapeutic 1 TAB PO SCH (09:04)
[2018-06-28] MEDS: Ascorbic Acid 500 mg Chewable Tablet PO SCH (09:04)
[2018-06-28] MEDS: Gabapentin 300 MG CAP PO SCH ×3 (09:05→21:05)
[2018-06-28] MEDS: Insulin Glargine 56 UNITS in Pre-Filled Syringe 1 EACH SC SCH (09:05)
[2018-06-28] MEDS: HumaLOG 300 UNITS/3 ML VIAL SC SCH ×3 (09:05→17:23)
[2018-06-28] MEDS: Polyethylene Glycol 3350 17 GM Packet PO SCH (09:08)
[2018-06-28] MEDS ORDERED: Furosemide 40 MG/4 ML VIAL SLOW IVP SCH (09:15)
[2018-06-28] MEDS: Spironolactone 25 MG TAB PO SCH (09:54)
[2018-06-28] MEDS ORDERED: DICLOFENAC SODIUM 100 GM TP PRN (10:47)
[2018-06-28] MEDS ORDERED: Carvedilol 25 MG TAB PO ONE (10:51)
[2018-06-28] MEDS ORDERED: VOLTAREN TOP SCH (11:00)
[2018-06-28] MEDS: Potassium Chloride 10 MEQ TAB PO SCH (11:12)
[2018-06-28] MEDS: Bisacodyl 5 MG TAB PO SCH ×2 (11:37→17:23)
[2018-06-28] MEDS ORDERED: Sotalol HCl 80 MG TAB PO ONE (13:00)
[2018-06-28] MEDS: Furosemide 80 MG TAB PO SCH (15:15)
[2018-06-28] MEDS ORDERED: Carvedilol 25 MG TAB PO SCH (20:00)
[2018-06-28] MEDS ORDERED: Furosemide 40 MG TAB PO SCH (21:00)
[2018-06-28] MEDS ORDERED: Non-Formulary Item 1 EACH (Sotalol Hcl [Sotalol] 120 MG) PO SCH (21:00)
[2018-06-28] MEDS: Sotalol HCl 80 MG TAB PO SCH (21:04)
[2018-06-28] MEDS: Atorvastatin Calcium 40 MG TAB PO SCH (21:04)
[2018-06-28] MEDS: Acetaminophen 325 MG TAB PO PRN (21:06)
[2018-06-28] MEDS: HumaLOG 300 UNITS/3 ML VIAL SC PRN (21:06)
[2018-06-28] MEDS: guaiFENesin ER 600 MG TAB PO PRN (22:23)
--- NOTE | 2018-06-29 05:55 | PDOC.FM ---
- Subjective Subjective: Ms. Mayfield is sitting up in bed, she reports swollen feet and cough. She has no other complaints - Objective Vital Signs & Weight: Vital Signs (12 hours) Temp Pulse Resp BP BP BP Pulse Ox 06/29/18 04:00 98.0 F 74 20 115/58 L 95 06/29/18 03:00 95 06/28/18 22:22 69 20 135/69 06/28/18 21:05 97.9 F 72 20 125/58 L 99 06/28/18 20:55 97.9 F 72 20 125/58 L 99 Weight Weight 96.933 kg I&O: 06/27/18 06/28/18 06/29/18 07:59 06:59 06:59 Intake Total 720 Output Total 2125 Balance -1405 Result Diagrams: 06/27/18 04:23 06/28/18 05:15 <Minesh Mak - Last Filed: 06/29/18 07:02> - Objective Vital Signs & Weight: Vital Signs (12 hours) Temp Pulse Pulse Pulse Resp BP BP 06/29/18 19:34 97.9 F 71 20 06/29/18 16:00 97.6 F 70 16 06/29/18 12:36 80 133/67 06/29/18 12:00 98 F 71 16 06/29/18 10:47 84 74 154/75 H BP BP Pulse Ox Pulse Ox Pulse Ox 06/29/18 19:34 120/58 L 95 06/29/18 16:00 124/73 97 06/29/18 12:36 06/29/18 12:00 133/67 96 06/29/18 10:47 133/67 96 93 L Weight Weight 96.162 kg I&O: 06/28/18 06/29/18 06/30/18 06:59 06:59 06:59 Intake Total 1035 730 Output Total 2125 840 Balance -1090 -110 Result Diagrams: 06/27/18 04:23 06/28/18 05:15 <Kan Anderson - Last Filed: 06/29/18 21:08> Phys Exam - Physical Examination Constitutional: NAD HEENT: PERRLA, moist MMs Neck: no nodes Respiratory: no wheezing, no rales, no rhonchi, clear to auscultation bilateral Cardiovascular: RRR, no rub, gallop Gastrointestinal: soft, non-tender, no distention Musculoskeletal: pulses present edema much improved Neurological: non-focal, moves all 4 limbs Lymphatic: no nodes Psychiatric: normal affect Skin: no rash <Minesh Mak - Last Filed: 06/29/18 07:02> Dx/Plan (1) Hypertensive urgency Code(s): I16.0 - HYPERTENSIVE URGENCY Status: Resolved (2) Acute exacerbation of CHF (congestive heart failure) Code(s): I50.9 - HEART FAILURE, UNSPECIFIED Status: Resolved (3) Cough Code(s): R05 - COUGH Status: Acute (4) Diabetes mellitus type 2 in obese Code(s): E11.9 - TYPE 2 DIABETES MELLITUS WITHOUT COMPLICATIONS; E66.9 - OBESITY , UNSPECIFIED Status: Chronic (5) History of atrial fibrillation Code(s): Z86.79 - PERSONAL HISTORY OF OTHER DISEASES OF THE CIRCULATORY SYSTEM Status: Chronic (6) Hypothyroidism Code(s): E03.9 - HYPOTHYROIDISM, UNSPECIFIED Status: Chronic Qualifiers: Hypothyroidism type: unspecified Qualified Code(s): E03.9 - Hypothyroidism , unspecified - Plan Plan: Decompensated chronic heart failure -trops downtrended, elevated Ddimer, CTA negative for PE -strict I/O, daily weights, O2 prn -Home medications restarted, tolerating well -last echo in 2015 showing EF of 40-45%, recently had outpt echo with Dr. Morley -continued diuresies on home dose lasix Hypertensive urgency -will resume home meds, PRN anti hypertensives -blood pressure at goal, no PRNs needed Non-ischemic cardiomyopathy -follows with Dr. Morley outpt -has f/u appt next month Hypothyroidism -TSH on 05/29/18 was elevated at 6 - home synthroid resumed Chronic HTN -resume home meds DM2 -resume home meds -mild SS, improved HLD -resume home meds dvt ppx: lovenox gi ppx: home protonix Dispo: diueresing well on home medication, pressures controlled, possible DC today <Minesh Mak - Last Filed: 06/29/18 07:02> Attending Addendum - Attending Addendum Date/Time: 06/29/182107 I personally evaluated the patient and discussed the management with Dr. Mak and team. I agree with and repeated the History, Examination, Assessment and Plan documented above with any addition or exceptions noted below. Still hypervolemic and uncomfortable with going home. Continue diuresis and monitor. <Kan Anderson - Last Filed: 06/29/18 21:08>
[2018-06-29] MEDS: Levothyroxine Sodium 112 MCG TAB PO SCH (06:17)
[2018-06-29] MEDS: Levothyroxine Sodium 25 MCG TAB PO SCH (06:17)
[2018-06-29] MEDS: Insulin Glargine 56 UNITS in Pre-Filled Syringe 1 EACH SC SCH (08:45)
[2018-06-29] MEDS: Senokot S 8.6-50 MG TAB PO SCH ×2 (08:47→21:16)
[2018-06-29] MEDS: Polyethylene Glycol 3350 17 GM Packet PO SCH (08:47)
[2018-06-29] MEDS: Spironolactone 25 MG TAB PO SCH (08:47)
[2018-06-29] MEDS: Gabapentin 300 MG CAP PO SCH ×3 (08:47→21:16)
[2018-06-29] MEDS: Furosemide 80 MG TAB PO SCH ×2 (08:48→15:02)
[2018-06-29] MEDS: Aspirin 81 mg Enteric Coated Tablet PO SCH (08:48)
[2018-06-29] MEDS: Magnesium Oxide 400 MG TAB PO SCH (08:48)
[2018-06-29] MEDS: Multivit, Therapeutic 1 TAB PO SCH (08:48)
[2018-06-29] MEDS: Ascorbic Acid 500 mg Chewable Tablet PO SCH (08:48)
[2018-06-29] MEDS: Ezetimibe 10 MG TAB PO SCH (08:48)
[2018-06-29] MEDS: Amlodipine 5 MG TAB PO SCH (08:49)
[2018-06-29] MEDS: Carvedilol 25 MG TAB PO SCH ×2 (08:50→17:11)
[2018-06-29] MEDS: Bisacodyl 5 MG TAB PO SCH ×3 (08:50→17:15)
[2018-06-29] MEDS: Fish Oil 1,000 MG CAP PO SCH (08:50)
[2018-06-29] MEDS: Calcium Carbonate 500 MG TAB PO SCH (08:51)
[2018-06-29] MEDS ORDERED: ZINC AMINO ACID CHELATE PO SCH (09:00)
[2018-06-29] MEDS ORDERED: Non-Formulary Item 1 EACH (Magnesium Oxide [Magnesium] 400 MG) PO SCH (09:00)
[2018-06-29] MEDS: HumaLOG 300 UNITS/3 ML VIAL SC SCH ×3 (09:01→17:13)
[2018-06-29] MEDS: Potassium Chloride 20 MEQ TAB PO SCH (10:52)
[2018-06-29] MEDS: Zinc Sulfate 220 MG CAP PO SCH (10:52)
[2018-06-29] MEDS ORDERED: Furosemide 20 MG/2 ML VIAL SLOW IVP SCH (12:15)
[2018-06-29] MEDS: HumaLOG 300 UNITS/3 ML VIAL SC PRN ×2 (12:35→21:17)
[2018-06-29] MEDS: Sotalol HCl 80 MG TAB PO SCH ×2 (12:36→21:15)
[2018-06-29] MEDS: Artificial Tear Sol 15 ML BOT EA EYE SCH (17:16)
[2018-06-29] MEDS: Acetaminophen 325 MG TAB PO PRN ×2 (19:31→23:38)
[2018-06-29] MEDS: Atorvastatin Calcium 40 MG TAB PO SCH (21:17)
[2018-06-29] MEDS: guaiFENesin ER 600 MG TAB PO PRN (21:17)
--- NOTE | 2018-06-30 06:02 | PDOC.FM ---
- Subjective Subjective: Ms. Mayfield is resting comfortably in bed, she has no new complaints. She denies increased leg swelling, shortness of breath or chest pain - Objective Vital Signs & Weight: Vital Signs (12 hours) Temp Pulse Resp BP BP Pulse Ox 06/30/18 04:00 97.6 F 72 18 130/78 96 06/29/18 21:12 95 06/29/18 19:34 97.9 F 71 20 120/58 L 95 Weight Weight 96.162 kg I&O: 06/28/18 06/29/18 06/30/18 06:59 06:59 06:59 Intake Total 1035 730 Output Total 2125 840 Balance -1090 -110 Result Diagrams: 06/27/18 04:23 06/28/18 05:15 <Minesh Mak - Last Filed: 06/30/18 07:15> - Objective Vital Signs & Weight: Vital Signs (12 hours) Temp Pulse Resp BP BP BP Pulse Ox 06/30/18 10:12 70 133/81 06/30/18 08:00 98.0 F 70 18 133/81 99 06/30/18 04:00 97.6 F 72 18 130/78 96 Weight Weight 96.162 kg I&O: 06/29/18 06/30/18 07/01/18 06:59 06:59 06:59 Intake Total 1035 1158 Output Total 2125 1240 Balance -1090 -82 Result Diagrams: 06/27/18 04:23 06/28/18 05:15 <Kan Anderson - Last Filed: 06/30/18 12:58> Phys Exam - Physical Examination Constitutional: NAD HEENT: PERRLA Neck: no nodes Respiratory: no wheezing, no rales, no rhonchi, clear to auscultation bilateral Cardiovascular: RRR, no significant murmur, no rub Gastrointestinal: soft, no distention Musculoskeletal: pulses present edema improved to 1+ around the feet and ankle Neurological: non-focal, moves all 4 limbs Psychiatric: normal affect Skin: no rash <Minesh Mak - Last Filed: 06/30/18 07:15> Dx/Plan (1) Hypertensive urgency Code(s): I16.0 - HYPERTENSIVE URGENCY Status: Resolved (2) Acute exacerbation of CHF (congestive heart failure) Code(s): I50.9 - HEART FAILURE, UNSPECIFIED Status: Resolved (3) Cough Code(s): R05 - COUGH Status: Acute (4) Diabetes mellitus type 2 in obese Code(s): E11.9 - TYPE 2 DIABETES MELLITUS WITHOUT COMPLICATIONS; E66.9 - OBESITY , UNSPECIFIED Status: Chronic (5) History of atrial fibrillation Code(s): Z86.79 - PERSONAL HISTORY OF OTHER DISEASES OF THE CIRCULATORY SYSTEM Status: Chronic (6) Hypothyroidism Code(s): E03.9 - HYPOTHYROIDISM, UNSPECIFIED Status: Chronic Qualifiers: Hypothyroidism type: unspecified Qualified Code(s): E03.9 - Hypothyroidism , unspecified - Plan Plan: Decompensated chronic heart failure -trops downtrended, elevated Ddimer, CTA negative for PE -strict I/O, daily weights, O2 prn - neg 1090 fluid balance yesterday -Home medications restarted, tolerating well -last echo in 2015 showing EF of 40-45%, recently had outpt echo with Dr. Morley -continued diuresies on home dose lasix Hypertensive urgency -will resume home meds, PRN anti hypertensives -blood pressure at goal, no PRNs needed Non-ischemic cardiomyopathy -follows with Dr. Morley outpt -has f/u appt next month Hypothyroidism -TSH on 05/29/18 was elevated at 6 - home synthroid resumed Chronic HTN -resume home meds DM2 -resume home meds -mild SS, improved HLD -resume home meds dvt ppx: lovenox gi ppx: home protonix Dispo: diueresing well on home medication, pressures controlled, possible DC today <Minesh Mak - Last Filed: 06/30/18 07:15> Attending Addendum - Attending Addendum Date/Time: 06/30/18 3151 I personally evaluated the patient and discussed the management with Dr. Mak. I agree with and repeated the History, Examination, Assessment and Plan documented above with any addition or exceptions noted below. Pt states she has had fatigue and CABRAL the last month. We just found out last TTE at outpatient visit was 18 months ago. Will proceed with TTE and if no additional therapy needed will plan on d/c. <Kan Andesron - Last Filed: 06/30/18 12:58>
[2018-06-30] MEDS: Levothyroxine Sodium 25 MCG TAB PO SCH (06:19)
[2018-06-30] MEDS: Levothyroxine Sodium 112 MCG TAB PO SCH (06:19)
[2018-06-30] MEDS: Insulin Glargine 56 UNITS in Pre-Filled Syringe 1 EACH SC SCH (10:09)
[2018-06-30] MEDS: HumaLOG 300 UNITS/3 ML VIAL SC SCH ×3 (10:09→17:05)
[2018-06-30] MEDS: Ascorbic Acid 500 mg Chewable Tablet PO SCH (10:10)
[2018-06-30] MEDS: Magnesium Oxide 400 MG TAB PO SCH (10:11)
[2018-06-30] MEDS: Potassium Chloride 10 MEQ TAB PO SCH (10:11)
[2018-06-30] MEDS: Furosemide 80 MG TAB PO SCH ×2 (10:11→15:13)
[2018-06-30] MEDS: Multivit, Therapeutic 1 TAB PO SCH (10:11)
[2018-06-30] MEDS: Ezetimibe 10 MG TAB PO SCH (10:11)
[2018-06-30] MEDS: Spironolactone 25 MG TAB PO SCH (10:11)
[2018-06-30] MEDS: Calcium Carbonate 500 MG TAB PO SCH (10:11)
[2018-06-30] MEDS: Gabapentin 300 MG CAP PO SCH ×3 (10:11→20:36)
[2018-06-30] MEDS: Bisacodyl 5 MG TAB PO SCH ×3 (10:12→17:03)
[2018-06-30] MEDS: Aspirin 81 mg Enteric Coated Tablet PO SCH (10:12)
[2018-06-30] MEDS: Polyethylene Glycol 3350 17 GM Packet PO SCH (10:12)
[2018-06-30] MEDS: Fish Oil 1,000 MG CAP PO SCH (10:12)
[2018-06-30] MEDS: Senokot S 8.6-50 MG TAB PO SCH ×2 (10:12→20:37)
[2018-06-30] MEDS: Amlodipine 5 MG TAB PO SCH (10:12)
[2018-06-30] MEDS: Carvedilol 25 MG TAB PO SCH ×2 (10:12→17:04)
[2018-06-30] MEDS: Artificial Tear Sol 15 ML BOT EA EYE SCH (10:13)
--- NOTE | 2018-06-30 11:10 | PQF ---
CLINICAL DOCUMENTATION IMPROVEMENT CLARIFICATION FORM: ICD-10 Updated PLEASE DO AN ADDENDUM TO THE PROGRESS NOTE WITH ANY DOCUMENTATION UPDATES OR ADDITIONS AND CARRY THROUGH TO DC SUMMARY. THANK YOU. DATE: 06/30/18 ATTN: DR. CASE Please exercise your independent, professional judgment in responding to the clarification form. Clinical indicators are provided on the bottom of this form for your review Please check appropriate box(s): HEART FAILURE: A. TYPE: [ x] Systolic / HFrEF [ ] Diastolic / HFpEF [ ] Combined Systolic / Diastolic B. ACUITY [ ] Acute [ x] Acute on Chronic [ ] Chronic [ ] Other diagnosis [ ] Unable to determine In addition, please specify: Present on Admission (POA): [ x] Yes [ ] No [ ] Unable to determine For continuity of documentation, please document condition throughout progress notes and discharge summary. Thank You. CLINICAL INDICATORS - SIGNS / SYMPTOMS / LABS H&P: "ACUTE EXACERBATION OF CHF" "DECOMPENSATED CHRONIC HEART FAILURE" CHEST XRAY: "SEVERE CONGESTIVE HEART FAILURE" (ER NOTE) PROGRESS NOTE 06/28: "ACUTE EXACERBATION" BNP 440.7 RISKS: H/O CHF HYPERTENSION TREATMENT: IV LASIX (ER) LASIX PO (06/28-PRESENT) COREG (06/29-PRESENT) TELEMETRY MONITORING SAP [employer] Winform Viewer (This form is maintained as a part of the permanent medical record) 2014 [employer]. All Rights Reserved AKI [email or web address] Office: [phone] [facility]
[2018-06-30] MEDS: Zinc Sulfate 220 MG CAP PO SCH (13:20)
[2018-06-30] MEDS: HumaLOG 300 UNITS/3 ML VIAL SC PRN ×2 (13:20→17:06)
[2018-06-30] MEDS: Sotalol HCl 80 MG TAB PO SCH ×3 (13:21→20:36)
[2018-06-30] MEDS ORDERED: PROVENTIL INHALER 6.7 G (200 INHALATIONS) INH PRN (19:22)
[2018-06-30] MEDS: Atorvastatin Calcium 40 MG TAB PO SCH (20:36)
[2018-06-30] MEDS: Albuterol Sulfate 1.25 MG/3 ML NEB NEB SCH (21:17)
[2018-07-01] MEDS: Levothyroxine Sodium 112 MCG TAB PO SCH (05:44)
[2018-07-01] MEDS: Levothyroxine Sodium 25 MCG TAB PO SCH (05:44)
--- NOTE | 2018-07-01 06:34 | PDOC.FM ---
- Subjective Subjective: Ms. Mayfield is resting comfortably in bed, she has resumed home breathing treatments and is feeling less SOB/cough. she denies CP or any new complaints - Objective Vital Signs & Weight: Vital Signs (12 hours) Temp Pulse Resp BP BP Pulse Ox 07/01/18 04:00 97.9 F 80 18 151/57 H 95 06/30/18 21:17 63 18 97 06/30/18 20:36 74 06/30/18 20:28 98.0 F 74 18 128/67 95 Weight Weight 96.797 kg I&O: 06/29/18 06/30/18 07/01/18 06:59 06:59 06:59 Intake Total 1035 1158 1210 Output Total 2125 1240 400 Balance -1090 -82 810 Result Diagrams: 06/27/18 04:23 06/28/18 05:15 <Minesh Mak - Last Filed: 07/01/18 08:46> - Objective Vital Signs & Weight: Vital Signs (12 hours) Temp Pulse Resp BP BP BP Pulse Ox 07/01/18 13:59 75 16 07/01/18 11:40 69 07/01/18 11:36 98.1 F 69 16 135/67 96 07/01/18 10:22 70 16 96 07/01/18 08:56 69 144/78 H 07/01/18 08:05 98.2 F 69 17 144/78 H 98 07/01/18 06:51 64 14 99 07/01/18 04:00 97.9 F 80 18 151/57 H 95 Weight Weight 96.797 kg I&O: 06/30/18 07/01/18 07/02/18 06:59 06:59 06:59 Intake Total 1158 1210 Output Total 1240 400 Balance -82 810 Result Diagrams: 06/27/18 04:23 07/01/18 08:00 <Kan Anderson - Last Filed: 07/01/18 14:14> Phys Exam - Physical Examination Constitutional: NAD Respiratory: no wheezing, no rales, no rhonchi, clear to auscultation bilateral Cardiovascular: RRR, no significant murmur, no rub edema improved, 1+ around ankles Neurological: moves all 4 limbs Skin: no rash <Minesh Mak - Last Filed: 07/01/18 08:46> Dx/Plan (1) Hypertensive urgency Code(s): I16.0 - HYPERTENSIVE URGENCY Status: Resolved (2) Acute exacerbation of CHF (congestive heart failure) Code(s): I50.9 - HEART FAILURE, UNSPECIFIED Status: Resolved (3) Cough Code(s): R05 - COUGH Status: Acute (4) Diabetes mellitus type 2 in obese Code(s): E11.9 - TYPE 2 DIABETES MELLITUS WITHOUT COMPLICATIONS; E66.9 - OBESITY , UNSPECIFIED Status: Chronic (5) History of atrial fibrillation Code(s): Z86.79 - PERSONAL HISTORY OF OTHER DISEASES OF THE CIRCULATORY SYSTEM Status: Chronic (6) Hypothyroidism Code(s): E03.9 - HYPOTHYROIDISM, UNSPECIFIED Status: Chronic Qualifiers: Hypothyroidism type: unspecified Qualified Code(s): E03.9 - Hypothyroidism , unspecified - Plan Plan: Decompensated chronic heart failure -trops downtrended, elevated Ddimer, CTA negative for PE -strict I/O, daily weights, O2 prn -Home medications restarted, tolerating well -last echo in 2016 showing EF of 40-45%, repeat echo yesterday, awaiting read - pt does not tolerate ROYAL-I, or ARB medications Hypertensive urgency -will resume home meds, PRN anti hypertensives -blood pressure at goal, no PRNs needed Non-ischemic cardiomyopathy -follows with Dr. Morley outpt -has f/u appt next month Hypothyroidism -TSH on 05/29/18 was elevated at 6 - home synthroid resumed Chronic HTN -resume home meds DM2 -resume home meds -mild SS, improved HLD -resume home meds dvt ppx: lovenox gi ppx: home protonix Dispo: pressures controlled, if echo results today unchanged from previous: DC today <Minesh Mak - Last Filed: 07/01/18 08:46> Attending Addendum - Attending Addendum Date/Time: 07/01/18 1413 I personally evaluated the patient and discussed the management with Dr. aMk. I agree with and repeated the History, Examination, Assessment and Plan documented above with any addition or exceptions noted below. No cp/sob/n/v. Exam improved. Await TTE and discharge. <Kan Anderson - Last Filed: 07/01/18 14:14>
[2018-07-01] MEDS: Albuterol Sulfate 1.25 MG/3 ML NEB NEB SCH ×4 (06:51→19:10)
[2018-07-01 08:49] LABS: Anion Gap 12 mmol/L (10-20); BUN (Urea Nitrogen) 17 mg/dL (9.8-20.1); Calc. Creatinine Clearance 75 mL/min (70-130); Calcium 9.3 mg/dL (7.8-10.44); Carbon Dioxide 31 mmol/L (23-31); Chloride 102 mmol/L (98-107); Estimated GFR-MDRD 72; Glucose 137 mg/dL (83-110); Potassium 3.7 mmol/L (3.5-5.1); Sodium 141 mmol/L (136-145)
[2018-07-01] MEDS: Bisacodyl 5 MG TAB PO SCH ×3 (08:55→17:37)
[2018-07-01] MEDS: Carvedilol 25 MG TAB PO SCH ×2 (08:55→17:37)
[2018-07-01] MEDS: Calcium Carbonate 500 MG TAB PO SCH (08:56)
[2018-07-01] MEDS: Amlodipine 5 MG TAB PO SCH (08:56)
[2018-07-01] MEDS: Spironolactone 25 MG TAB PO SCH (08:56)
[2018-07-01] MEDS: Aspirin 81 mg Enteric Coated Tablet PO SCH (08:56)
[2018-07-01] MEDS: Furosemide 80 MG TAB PO SCH ×2 (08:57→14:49)
[2018-07-01] MEDS: Gabapentin 300 MG CAP PO SCH ×2 (08:57→14:49)
[2018-07-01] MEDS: Multivit, Therapeutic 1 TAB PO SCH (08:57)
[2018-07-01] MEDS: Magnesium Oxide 400 MG TAB PO SCH (08:57)
[2018-07-01] MEDS: Ezetimibe 10 MG TAB PO SCH (08:57)
[2018-07-01] MEDS: Fish Oil 1,000 MG CAP PO SCH (08:57)
[2018-07-01] MEDS: Insulin Glargine 56 UNITS in Pre-Filled Syringe 1 EACH SC SCH (08:58)
[2018-07-01] MEDS: Polyethylene Glycol 3350 17 GM Packet PO SCH (08:59)
[2018-07-01] MEDS: Senokot S 8.6-50 MG TAB PO SCH (08:59)
[2018-07-01] MEDS: Artificial Tear Sol 15 ML BOT EA EYE SCH (09:06)
[2018-07-01] MEDS: Ascorbic Acid 500 mg Chewable Tablet PO SCH (09:06)
[2018-07-01] MEDS: Potassium Chloride 20 MEQ TAB PO SCH (09:06)
[2018-07-01] MEDS: Zinc Sulfate 220 MG CAP PO SCH (09:07)
[2018-07-01] MEDS: HumaLOG 300 UNITS/3 ML VIAL SC SCH ×3 (09:07→17:37)
[2018-07-01] MEDS: Sotalol HCl 80 MG TAB PO SCH (11:40)
[2018-07-01] MEDS: HumaLOG 300 UNITS/3 ML VIAL SC PRN (11:40)
[2018-07-01 17:56] VITALS: BP 158/80; TEMP 98.4
--- NOTE | 2018-07-02 08:38 | DIS-2 ---
DATE OF ADMISSION: 06/27/2018 DATE OF DISCHARGE: 07/01/2018 RESIDENT: Dr. Minesh Mak. ADMITTING ATTENDING: Dr. Aurora Dill. DISCHARGE ATTENDING: Dr. Kan Anderson. CONSULTS: None. PROCEDURES: Chest/thorax CTA. Impression: No evidence of pulmonary emboli seen. Chest x-ray. Impression: Cardiomegaly and pulmonary vascular congestion, otherwise unremarkable AP view chest. Echocardiogram report significant for left ventricular size is normal. Ejection fraction is visually estimated at 50%-55%, diastolic dysfunction present, the left atrium is moderately dilated, mild to moderate mitral regurgitation is present, structurally normal aortic valve with no significant stenosis or regurgitation, trace tricuspid regurgitation. PRIMARY DIAGNOSIS: Acute on chronic congestive heart failure. SECONDARY DIAGNOSES: 1. Hypertensive urgency. 2. Nonischemic cardiomyopathy. 3. Hypothyroidism. 4. Chronic hypertension. 5. Diabetes mellitus type 2. 6. Hyperlipidemia. DISCHARGE MEDICATIONS: 1. Atorvastatin calcium 80 mg p.o. at bedtime. 2. Synthroid 137 mcg p.o. daily. 3. Sotalol 120 mg p.o. b.i.d. 4. Voltaren gel 100 g TP as directed p.r.n. 5. Insulin glargine (Lantus) 56-70 units SC q.a.m. 6. Coreg 25 mg p.o. b.i.d. 7. Acetaminophen 650 mg p.o. q.4 hours p.r.n. 8. Proventil 2-puff inhaled q.6 hours p.r.n. 9. Zetia 10 mg p.o. daily. 10. Neurontin 300 mg p.o. t.i.d. 11. Humalog 5 units subcutaneous t.i.d. with meals. 12. Theragran multivitamin 1 tab p.o. daily. 13. K-Dur 20 mEq p.o. q.2 days. 14. Spironolactone 50 mg p.o. q.a.m. with meals. 15. Amlodipine 5 mg p.o. daily. 16. Aspirin 81 mg p.o. q.a.m. 17. Vitamin C 500 mg p.o. daily. 18. Zinc amino acid chelate 50 mg p.o. daily. 19. [place] 3 fatty acid/fish oil 1 cap p.o. daily. 20. Magnesium oxide 400 mg p.o. daily. 21. Calcium carbonate 500 mg p.o. daily. 22. Dulcolax 5 mg p.o. t.i.d. with meals. 23. Albuterol sulfate 1.25 mg nebulized q.i.d. 24. Protonix 40 mg p.o. daily. 25. [place] 10-325 one p.o. q.6 hours p.r.n. 26. Lasix 80 mg p.o. b.i.d. 27. Artificial Tear Solution 1 drop each eye daily. 28. Xanax 0.25 mg p.o. b.i.d. p.r.n. 29. Lasix 80 mg p.o. b.i.d. 30. Klor-Con 10 mEq p.o. q.2 days. DISCONTINUED MEDICATIONS: None. HISTORY OF PRESENT ILLNESS AND HOSPITAL COURSE: This is an 82-year-old female with chronic congestive heart failure and AICD placement that presents to the ED with shortness of breath and lower leg swelling. She has a longstanding history of chronic heart failure with reduced ejection fraction and takes a max dose of Lasix 80 mg b.i.d. At baseline, she is mildly short of breath with lower leg swelling for 6 months, but her symptoms had worsened to the point where she could not get dressed without feeling short of breath that morning. She denied chest pain, headache, nausea, or diaphoresis at the time of presentation to the ED. In the ED, she had aspirin, Lasix 40 IV x1, transdermal nitro, and sublingual nitro. Her symptoms improved at that point. She was moved to medical tele floor in stable condition and she continued to diurese adequately. Respiratory status improved. Lower legs extremity swelling improved. Echocardiogram of her heart was obtained and showed an improved ejection fraction from her last echocardiogram 1-1/2 years ago. The patient's heart failure medication regimen was observed and deemed to be adequate with absence of ARB/ROYAL-I 2/2 patient intolerance. The patient was discharged to home in stable condition. DISCHARGE INSTRUCTIONS: 1. Location: Home. 2. Diet: Heart healthy/diabetic. 3. Activity: As tolerated. 4. Follow up with Dr. Morley at her scheduled appointment in July. 5. Dr. Earl Pederson in 7 days. [facility]
== END 2018-07-01 20:00 | disposition home or self-care (01) | DRG 291 ==
LOC: ERS 21:12 → 2NO 06-27 00:18
PROVIDERS: ADMIT Internal Medicine; ATTEND Internal Medicine
DX: I13.0 Hypertensive heart and chronic kidney disease with heart failure and stage 1 through stage 4 chronic kidney disease, or unspecified chronic kidney disease (principal); I50.23 Acute on chronic systolic (congestive) heart failure; I42.9 Cardiomyopathy, unspecified; E78.5 Hyperlipidemia, unspecified; E03.9 Hypothyroidism, unspecified; I16.0 Hypertensive urgency; E11.69 Type 2 diabetes mellitus with other specified complication; I48.91 Unspecified atrial fibrillation; E11.22 Type 2 diabetes mellitus with diabetic chronic kidney disease; N18.2 Chronic kidney disease, stage 2 (mild); Z79.4 Long term (current) use of insulin; Z79.82 Long term (current) use of aspirin; Z88.0 Allergy status to penicillin; Z88.8 Allergy status to other drugs, medicaments and biological substances; Z85.51 Personal history of malignant neoplasm of bladder; Z95.810 Presence of automatic (implantable) cardiac defibrillator; Z82.49 Family history of ischemic heart disease and other diseases of the circulatory system; Z82.3 Family history of stroke
CPT/HCPCS: 36415; 36416; 71045; 71275; 80048; 80053; 82550; 82553; 83690; 83880; 84443; 84484; 85025; 85379; 93005; 93306; 93798; 94640; 96374; J0360; J1650; J1940

== ENCOUNTER 2019-01-07 17:00 | Outpatient (CLI) | payer MEDICARE, BC | END 2019-01-07 17:01 | disposition home or self-care (01) | LOC: SLEEPLAB 17:00 | PROVIDERS: ATTEND Internal Medicine Critical Care Medicine | DX: Z53.9 Procedure and treatment not carried out, unspecified reason (principal) | CPT/HCPCS: 95806 ==

== ENCOUNTER 2019-01-17 18:30 | Inpatient (IN) | payer MEDICARE, BC ==
--- NOTE | 2019-01-17 19:03 | RAD ---
2 views chest. HISTORY: Dyspnea. PA and lateral views of the chest is obtained. Comparison made to previous exam from 12/17/2016. Cardiomegaly seen. There is a dual-lead intracardiac defibrillator. Pulmonary vascular congestion seen. Diffuse airspace opacities seen compatible with pulmonary edema. IMPRESSION: Cardiomegaly and pulmonary vascular congestion.
[2019-01-17 19:15] LABS: #Basophils 0.1 thou/uL (0.0-0.2); #Eosinphils 0.1 thou/uL (0.0-0.7); #Lymphocytes 1.5 thou/uL (1.20-3.40); #Monocytes 0.4 thou/uL (0.11-0.59); #Neutrophils 3.7 thou/uL (1.40-6.50); %Basophils 1.4 % (0.0-1.0); %Eosinophils 1.1 % (0.0-10.0); %Lymphocytes 25.6 % (21.0-51.0); %Monocytes 7.6 % (0.0-10.0); %Neutrophils 64.3 % (42.0-75.0); Hemoglobin 13.2 g/dL (12.0-16.0); Mean Corpuscular Hemoglobin 32.3 pg (27.0-31.0); Mean Platelet Volume 10.7 fL (7.4-10.4); Platelet Count 122 thou/uL (130-400); RBC Distribution Width 13.4 % (11.5-14.5); Red Blood Cell (RBC) Count 4.09 mill/uL (4.20-5.40); White Blood Cell (WBC) Count 5.7 thou/uL (4.8-10.8)
[2019-01-17 19:42] LABS: ALT (SGPT) 31 U/L (8-55); AST (SGOT) 17 U/L (5-34); Albumin 4.2 g/dL (3.4-4.8); Alkaline Phosphatase 47 U/L (40-150); Anion Gap 12 mmol/L (10-20); BUN (Urea Nitrogen) 14 mg/dL (9.8-20.1); Bilirubin, Total 0.6 mg/dL (0.2-1.2); CK (CPK) 232 U/L (29-168); Calc. Creatinine Clearance 0 mL/min (70-130); Calcium 9.3 mg/dL (7.8-10.44); Carbon Dioxide 30 mmol/L (23-31); Chloride 101 mmol/L (98-107); Estimated GFR-MDRD 54; Globulin 2.4 g/dL (2.4-3.5); Glucose 172 mg/dL (83-110); Potassium 4.1 mmol/L (3.5-5.1); Protein, Total 6.6 g/dL (6.0-8.3); Sodium 139 mmol/L (136-145)
[2019-01-17 19:57] LABS: CKMB 4.2 ng/mL (0-6.6)
--- NOTE | 2019-01-17 20:12 | PDOC.FPRHP ---
- History of Present Illness Chief Complaint: SOB with exertion History of Present Illness: Patient is an 83YOF with a PMH a HFpEF, HTN, IDDMII, and hypothyroidism who presented to the ED with a CC of progressively worsening SOB with exertion that has been ongoing for the last 2-3 months. However, the patient reports that her symptoms have become much worse over the last 2-3 weeks to the point where she cannot even reach for something next to her without getting short of breath. The patient states that she typically recovers after sitting to rest for about 30 minutes but over the last few weeks she has not felt like she has gotten back to her baseline even with rest. She reports associated fatigue, orthopnea and a non-productive cough but denies any chest pain or PND. She denies any LE edema but her daughter reports that her legs do appear more swollen on exam. ED Course: nitropaste, 325mg ASA, 40mg IV lasix - Allergies/Adverse Reactions Allergies Allergy/AdvReac Type Severity Reaction Status Date / Time Penicillins Allergy Severe Hives Verified 06/27/18 01:37 verapamil HCl [From [place]] Allergy Severe Swollen Verified 06/27/18 01:37 Lips codeine Allergy Intermediate Rash Verified 06/27/18 01:37 tramadol Allergy Intermediate Rash Verified 06/27/18 01:37 ROYAL Inhibitors Allergy COUGH Verified 06/27/18 01:37 ciprofloxacin Allergy Nausea Verified 06/27/18 02:07 morphine Allergy Nausea Verified 06/27/18 01:37 nitrofurantoin Allergy Nausea Verified 06/27/18 02:07 [From Macrobid] - Home Medications Medication Instructions Recorded Confirmed Type Atorvastatin Calcium [Lipitor] 80 mg PO HS 02/05/14 01/18/19 History Levothyroxine [Synthroid] 150 mcg PO DAILY 02/05/14 01/18/19 History Carvedilol [Coreg] 25 mg PO BID 10/25/16 01/18/19 History Diclofenac Sodium [Voltaren] 100 gm TP ASDIR PRN 10/25/16 01/18/19 History Insulin Glargine,Hum.Rec.Anlog 46 units SC QAM 10/25/16 01/18/19 History [Lantus Solostar] Sotalol HCl [Sotalol] 120 mg PO BID 10/25/16 01/18/19 History Acetaminophen [Tylenol Regular 650 mg PO Q4H PRN #0 tab 01/07/17 01/18/19 Rx Strength] Albuterol Sulfate [Proventil Hfa] 2 puff INH Q6H PRN #0 inh 01/07/17 01/18/19 Rx Ezetimibe [Zetia] 10 mg PO DAILY tab 01/07/17 01/18/19 Rx Gabapentin [Neurontin] 300 mg PO TID cap 01/07/17 01/18/19 Rx Multivit, Therapeutic [Theragran] 1 tab PO DAILY tab 01/07/17 01/18/19 Rx Spironolactone [Aldactone] 50 mg PO QAM-WM tab 01/07/17 01/18/19 Rx Aspirin [Ecotrin Low Strength] 81 mg PO QAM 01/27/17 01/18/19 History ALPRAZolam [Xanax] 0.25 mg PO BID PRN 06/27/18 01/18/19 History Albuterol Sulfate [Albuterol 1.25 mg NEB QID 06/27/18 01/18/19 History Sulfate Neb] Artificial Tear Radha 15ml Bot 1 drop EA EYE DAILY 06/27/18 01/18/19 History [Tears Renewed] Ascorbate Calcium [Vitamin C] 500 mg PO DAILY 06/27/18 01/18/19 History Bisacodyl [Dulcolax] 5 mg PO TID-WM 06/27/18 01/18/19 History Calcium Carbonate [Calcium] 500 mg PO DAILY 06/27/18 01/18/19 History HYDROcodone/Acetaminophen [[place] 1 each PO Q6H PRN 06/27/18 01/18/19 History 10-325 Tablet] Magnesium Oxide [Magnesium] 400 mg PO DAILY 06/27/18 01/18/19 History [place]-3 Fatty Acids/Fish Oil [Fish 1 cap PO DAILY 06/27/18 01/18/19 History Oil 1,000 mg Capsule] Pantoprazole [Protonix] 40 mg PO DAILY 06/27/18 01/18/19 History Zinc Amino Acid Chelate [Zinc] 50 mg PO DAILY 06/27/18 01/18/19 History Diltiazem HCl [Cartia XT] 180 mg PO DAILY 01/18/19 01/18/19 History Furosemide [Lasix] 40 mg PO BID 01/18/19 01/18/19 History Insulin Lispro [Humalog Kwikpen 10 unit SQ TID-WM 01/18/19 01/18/19 History U-100] Olmesartan Medoxomil [Benicar] 40 mg PO BID 01/18/19 01/18/19 History Potassium Chloride 10 meq PO DAILY 01/18/19 01/18/19 History Sulfamethoxazole/Trimethoprim 1 tab PO BID 01/18/19 01/18/19 History [Bactrim DS] - History PMHx: PSHx: FHx: Social: - Vital signs BP: 153/90 HR: 70 RR: 24 Tmax: afebrile Pox: 100% on RA Wt: 98 kg FMR H&P: Results - Labs Result Diagrams: 01/17/19 19:06 01/18/19 04:43 Lab results: WBC 5.7 thou/uL (4.8-10.8) 01/17/19 19:06 Hgb 13.2 g/dL (12.0-16.0) 01/17/19 19:06 Hct 40.1 % (36.0-47.0) 01/17/19 19:06 MCV 98.0 fL (78.0-98.0) 01/17/19 19:06 Plt Count 122 thou/uL (130-400) L 01/17/19 19:06 Neutrophils % 64.3 % (42.0-75.0) 01/17/19 19:06 Sodium 139 mmol/L (136-145) 01/17/19 19:06 Potassium 4.1 mmol/L (3.5-5.1) 01/17/19 19:06 Chloride 101 mmol/L (98-107) 01/17/19 19:06 Carbon Dioxide 30 mmol/L (23-31) 01/17/19 19:06 BUN 14 mg/dL (9.8-20.1) 01/17/19 19:06 Creatinine 1.17 mg/dL (0.6-1.1) H 01/17/19 19:06 Glucose 172 mg/dL (83-110) H 01/17/19 19:06 Calcium 9.3 mg/dL (7.8-10.44) 01/17/19 19:06 Total Bilirubin 0.6 mg/dL (0.2-1.2) 01/17/19 19:06 AST 17 U/L (5-34) 01/17/19 19:06 ALT 31 U/L (8-55) 01/17/19 19:06 Alkaline Phosphatase 47 U/L (40-150) 01/17/19 19:06 Creatine Kinase 232 U/L (29-168) H 01/17/19 19:06 CK-MB (CK-2) 4.2 ng/mL (0-6.6) 01/17/19 19:06 B-Natriuretic Peptide 452.2 pg/mL (0-100) H 01/17/19 19:06 Serum Total Protein 6.6 g/dL (6.0-8.3) 01/17/19 19:06 Albumin 4.2 g/dL (3.4-4.8) 01/17/19 19:06 - Radiology Interpretation Chest x-ray Status: report reviewed by me (cardiomegaly with pulmonary vascualr congestion and pulmonary edema) FMR H&P: A/P - Problem List (1) Hyperlipidemia associated with type 2 diabetes mellitus Current Visit: No Status: Acute Code(s): E11.69 - TYPE 2 DIABETES MELLITUS WITH OTHER SPECIFIED COMPLICATION; E78.5 - HYPERLIPIDEMIA, UNSPECIFIED (2) CHF (congestive heart failure) Current Visit: No Status: Chronic Code(s): I50.9 - HEART FAILURE, UNSPECIFIED (3) Constipation Current Visit: No Status: Chronic Code(s): K59.00 - CONSTIPATION, UNSPECIFIED Qualifiers: Constipation type: unspecified constipation type Qualified Code(s): K59.00 - Constipation, unspecified (4) Diabetes mellitus type 2 in obese Current Visit: No Status: Chronic Code(s): E11.9 - TYPE 2 DIABETES MELLITUS WITHOUT COMPLICATIONS; E66.9 - OBESITY, UNSPECIFIED (5) Hypertension Current Visit: No Status: Chronic Code(s): I10 - ESSENTIAL (PRIMARY) HYPERTENSION (6) Hypothyroidism Current Visit: No Status: Chronic Code(s): E03.9 - HYPOTHYROIDISM, UNSPECIFIED Qualifiers: Hypothyroidism type: unspecified Qualified Code(s): E03.9 - Hypothyroidism , unspecified (7) Acute exacerbation of CHF (congestive heart failure) Current Visit: No Status: Resolved Code(s): I50.9 - HEART FAILURE, UNSPECIFIED - Plan Acute HFpEF Exacerbation -Patient's CXR on admission notable for cardiomegaly with pulmonary vascular congestion and edema consistent with a CHF exacerbation. Patient is s/p 40mg IV lasix in the ED which did slightly improve her symptoms. Is maintaining adequate O2 sats on RA at this time as well. -Will admit to telemetry for observation & continue IV diuresis as tolerated by the patient. -Will monitor strict I/Os and fluid restrict to 1.2L/day. -Will order supplemental oxygen PRN to maintain sats >92%. -Last Echo per chart review was in June of 2018 & showed an EF of 50-55% with diastolic dysfunction so could consider getting an updated one at this time but would unlikely change acute management. DERICK on CKD2 -Cr 09/10 on admission with an eGFR of 54% which is near patient's baseline per chart review. Will continue to monitor renal function closely w/ QD BMPs. Indeterminately elevated troponin -Troponin elevated at 0.096 on admission which is lower than during previous hospitalizations per chart review. Likely 2/2 demand ischemia in setting of an acute CHF exacerbation. EKG did not reveal any ST changes & patient's denied chest pain on exam. Will continue to trend. Mild thrombocytopenia -Also near baseline per chart review. Will continue to monitor w/ QD CBCs. HFpEF - Patient in acute exacerbation. See plan above. hypothyroidism - Will resume home meds IDDMII - Will resume home meds. - ACHS accuchecks with SSI & hypoglycemia protocol. HTN - Will resume home meds including BBs since patient is in mild exacerbation. HLD - Will resume home meds. COPD - Aware, follows with Dr. Amato. Does not appear to be in acute exacerbation. Will resume home meds. h/o bladder CA s/p surgical resection - Aware, patient follows closely with Dr. Aguilar FMR H&P: Upper Level - Pertinent history 83 yo AAF with PMH of HFpEF with AICD/pacemaker, DM, and HTN presenting due to worsening SOB. Pt was concerned that her O2 was low and states felt similar to previous CHF exacerbations. Pt given lasix 80 mg IV, nitropaste, and ASA in ER. - Pertinent findings VSS Gen: NAD CV: RRR Resp: shallow effort, bibasilar crackles - Plan Date/Time: 01/17/192011 IStu MD PGY3, have evaluated this patient and agree with findings/ plan as outlined by project internship resident. Pertinent changes/additions are listed here. 1. Acute HFpEF Exacerbation -Admit to telemetry observation for CHF exacerbation. -Continue with IV diuretics, strict I/Os and fluid restriction. -Supplemental oxygen PRN. 2. DERICK on CKD2 -Near baseline, trend. 3. Elevated troponin likely 2/2 demand ischemia -Trend. Lower than previous hospitalizations. 4. Mild thrombocytopenia -Also near baseline, monitor at this time. PPx: Lovenox for VTE, no GI indicated. disposition: Admit to telemetry observation for anticipated length of stay less than two midnights, pending clinical course.
[2019-01-17] MEDS ORDERED: Furosemide 40 MG/4 ML VIAL ONE (20:13)
[2019-01-17] MEDS ORDERED: Nitroglycerin 2% Ointment 1 INCH/1 GM Packet ONE (20:13)
[2019-01-17] MEDS ORDERED: Aspirin 325 MG TAB ONE (20:13)
[2019-01-17 22:35] LABS: Troponin I 0.088 ng/mL (< 0.028)
[2019-01-17] MEDS ORDERED: Dextrose 5% in Water 1,000 ML IV PRN (22:59)
[2019-01-17] MEDS ORDERED: Acetaminophen 325 MG TAB PO PRN (22:59)
[2019-01-17] MEDS ORDERED: Ondansetron ODT 4 MG TAB PO PRN (22:59)
[2019-01-17] MEDS ORDERED: Dextrose 50% Abboject 50 ML SYRINGE SLOW IVP PRN (22:59)
[2019-01-17] MEDS ORDERED: HumaLOG 300 UNITS/3 ML VIAL SC PRN ×2 (23:02)
[2019-01-18 00:45] VITALS: BMI 38.4
[2019-01-18] MEDS: Gabapentin 300 MG CAP PO SCH ×3 (00:59→14:05)
[2019-01-18] MEDS ORDERED: Acetaminophen 325 MG TAB PO PRN (01:18)
[2019-01-18] MEDS ORDERED: ALPRAZolam 0.25 MG TAB PO PRN (01:18)
[2019-01-18] MEDS ORDERED: Diclofenac 1% 100 GM GEL TOP PRN (01:18)
[2019-01-18] MEDS ORDERED: PROVENTIL INHALER 6.7 G (200 INHALATIONS) INH PRN (01:18)
[2019-01-18 01:54] LABS: Troponin I 0.077 ng/mL (< 0.028)
[2019-01-18 05:25] LABS: Anion Gap 11 mmol/L (10-20); BUN (Urea Nitrogen) 13 mg/dL (9.8-20.1); Calc. Creatinine Clearance 71 mL/min (70-130); Calcium 9.1 mg/dL (7.8-10.44); Carbon Dioxide 28 mmol/L (23-31); Chloride 102 mmol/L (98-107); Estimated GFR-MDRD 67; Glucose 175 mg/dL (83-110); Potassium 4.4 mmol/L (3.5-5.1); Sodium 137 mmol/L (136-145)
[2019-01-18] MEDS: Bisacodyl 5 MG TAB PO SCH ×3 (05:26→17:02)
[2019-01-18] MEDS ORDERED: Furosemide 40 MG/4 ML VIAL SLOW IVP SCH (06:00)
[2019-01-18] MEDS ORDERED: Levothyroxine 150 MCG TAB PO SCH (06:00)
--- NOTE | 2019-01-18 07:04 | PDOC.FM ---
- Subjective Subjective: pt sitting comfortably on bedside commode, denies SOB or chest pain. feeling better. - Objective Vital Signs & Weight: Vital Signs (12 hours) Temp Pulse Resp BP BP Pulse Ox 01/18/19 03:45 72 18 174/93 H 94 L 01/17/19 23:54 98.3 F 73 24 H 161/77 H 97 Weight Weight 98.43 kg I&O: 01/16/19 01/17/19 01/18/19 06:59 06:59 06:59 Output Total 600 Balance -600 Result Diagrams: 01/17/19 19:06 01/18/19 04:43 Phys Exam - Physical Examination Constitutional: NAD HEENT: moist MMs Neck: full ROM Respiratory: clear to auscultation bilateral Cardiovascular: RRR, no significant murmur Gastrointestinal: soft, no distention Musculoskeletal: pulses present, edema present Neurological: moves all 4 limbs Psychiatric: normal affect Skin: no rash Dx/Plan (1) Heart failure Code(s): I50.9 - HEART FAILURE, UNSPECIFIED Status: Acute (2) Diabetes mellitus type 2 in obese Code(s): E11.9 - TYPE 2 DIABETES MELLITUS WITHOUT COMPLICATIONS; E66.9 - OBESITY , UNSPECIFIED Status: Chronic (3) History of atrial fibrillation Code(s): Z86.79 - PERSONAL HISTORY OF OTHER DISEASES OF THE CIRCULATORY SYSTEM Status: Chronic (4) History of neoplasm of bladder Code(s): Z87.898 - PERSONAL HISTORY OF OTHER SPECIFIED CONDITIONS Status: Chronic (5) Hypertension Code(s): I10 - ESSENTIAL (PRIMARY) HYPERTENSION Status: Chronic (6) Hypothyroidism Code(s): E03.9 - HYPOTHYROIDISM, UNSPECIFIED Status: Chronic Qualifiers: Hypothyroidism type: unspecified Qualified Code(s): E03.9 - Hypothyroidism , unspecified - Plan Plan: Acute HFpEF Exacerbation - elevated BNP, CXR w/ cardiomegaly/pulmonary vascular congestion and edema - s/p 40mg IV lasix in the ED, maintaining adequate O2 sats on RA -monitor strict I/Os and fluid restrict to 1.2L/day. -O2 PRN to maintain sats >92%. -Last Echo per chart review was in June of 2018 & showed an EF of 50-55% with diastolic dysfunction - resume home PO lasix DERICK on CKD2 -Cr 09/10 on admission with an eGFR of 54%, near baseline -monitor renal function closely w/ QD BMPs. Indeterminately elevated troponin -Troponin elevated at 0.096 on admission which is lower than during previous hospitalizations - Likely 2/2 demand ischemia in setting of an acute CHF exacerbation. -EKG w/o ST changes, no chest pain, down trending Mild thrombocytopenia -Also near baseline per chart review. - monitor w/ QD CBCs. HFpEF - Patient in acute exacerbation. See plan above. hypothyroidism - continue home meds IDDMII - continue home meds. - ACHS accuchecks with SSI & hypoglycemia protocol. HTN - continue home meds including BBs since patient is in mild exacerbation. HLD - continue home meds. COPD - Aware, continue home meds. h/o bladder CA s/p surgical resection - Aware, patient follows closely with Dr. Aguilar Code: full PCP: Bg [facility]ado Dispo: consider DC home later today or tomorrow Addendum - Attending - Attending Attestation Date/Time: 01/18/19 1036 I personally evaluated the patient and discussed the management with Dr. Mak. I agree with the History, Examination, Assessment and Plan documented above with any addition or exceptions noted below. Patient here with mild CHF exacerbation (HFpEF) without hypoxia. She is feeling improved. It sounds like some of her issues are chronic deconditioning as her complaint of shortness of breath with very minimal exertion is not really consistent with her degree of HF. Consider Rehab versus SNF if interested, and this also could be related to her severe anxiety that we have seen her manifest before regarding her health. Monitor through the day but could be a potential discharge later today if feeling well.
[2019-01-18] MEDS ORDERED: HumaLOG 300 UNITS/3 ML VIAL SC SCH (08:00)
[2019-01-18] MEDS ORDERED: Potassium Chloride 10 MEQ TAB PO SCH ×2 (08:00)
[2019-01-18] MEDS ORDERED: Spironolactone 100 MG TAB PO SCH (08:00)
[2019-01-18] MEDS ORDERED: Calcium Carbonate 500 MG TAB PO SCH (08:00)
[2019-01-18] MEDS: Carvedilol 25 MG TAB PO SCH ×2 (08:04→17:02)
[2019-01-18] MEDS: HumaLOG 300 UNITS/3 ML VIAL SC SCH ×3 (08:07→17:02)
[2019-01-18] MEDS ORDERED: Ascorbic Acid 500 mg Chewable Tablet PO SCH (09:00)
[2019-01-18] MEDS ORDERED: Fish Oil 1,000 MG CAP PO SCH (09:00)
[2019-01-18] MEDS ORDERED: INSULIN GLARGINE HUM REC ANLOG 46 UNIT SC SCH (09:00)
[2019-01-18] MEDS ORDERED: Ezetimibe 10 MG TAB PO SCH (09:00)
[2019-01-18] MEDS ORDERED: Magnesium Oxide 400 MG TAB PO SCH (09:00)
[2019-01-18] MEDS ORDERED: Enoxaparin Sodium 40 MG/0.4 ML SYRINGE SC SCH (09:00)
[2019-01-18] MEDS ORDERED: Zinc Sulfate 220 MG CAP PO SCH (09:00)
[2019-01-18] MEDS ORDERED: Insulin Glargine 46 UNITS in Pre-Filled Syringe 1 EACH SC SCH (09:00)
[2019-01-18] MEDS ORDERED: Artificial Tears 18 DROP/0.9 ML EA EYE SCH (09:00)
[2019-01-18] MEDS ORDERED: Aspirin 81 mg Enteric Coated Tablet PO SCH (09:00)
[2019-01-18] MEDS ORDERED: Gabapentin 300 MG CAP PO SCH (09:00)
[2019-01-18] MEDS ORDERED: Sulfameth/Trimethoprim DS 800-160mg TAB PO SCH (09:00)
[2019-01-18] MEDS ORDERED: Sotalol HCl 80 MG TAB PO SCH (09:00)
[2019-01-18] MEDS ORDERED: Multivit, Therapeutic 1 TAB PO SCH (09:00)
[2019-01-18] MEDS ORDERED: Furosemide 40 MG TAB PO SCH ×2 (14:00→21:00)
[2019-01-18 15:33] VITALS: BP 133/62; TEMP 97.8
[2019-01-18] MEDS ORDERED: Atorvastatin Calcium 40 MG TAB PO SCH (21:00)
--- NOTE | 2019-01-19 12:52 | DIS ---
DATE OF ADMISSION: 01/17/2019 DATE OF DISCHARGE: 01/18/2019 ADMITTING ATTENDING: Nadeem Hoyos MD CONSULTS: None. IMAGING: Chest x-ray, significant for no acute cardiopulmonary findings. PROCEDURES: None. DISCHARGE MEDICATIONS: 1. Lipitor 80 mg p.o. at bedtime. 2. Synthroid 150 mcg p.o. daily. 3. Sotalol 120 mg p.o. b.i.d. 4. Voltaren gel 100 g topical as directed p.r.n. 5. Lantus 46 units subcu q.a.m. 6. Coreg 25 mg p.o. b.i.d. 7. Tylenol 650 mg p.o. q.4 hours p.r.n. 8. Proventil 2 puffs inhaled q.6 hours p.r.n. 9. Zetia 10 mg p.o. daily. 10. Gabapentin 300 mg p.o. t.i.d. 11. Theragran one tab p.o. daily. 12. Spironolactone 50 mg p.o. q.a.m. with meals. 13. Aspirin 81 mg p.o. q.a.m. 14. Vitamin C 500 mg p.o. daily. 15. Zinc 50 mg p.o. daily. 16. [place]-3 fatty acids/fish oil one cap p.o. daily. 17. Magnesium oxide 400 mg p.o. daily. 18. Calcium carbonate 500 mg p.o. daily. 19. Dulcolax 5 mg p.o. t.i.d. with meals. 20. Albuterol nebulized q.i.d. 21. Protonix 40 mg p.o. daily. 22. [place] 10/325 one p.o. q.6 hours p.r.n. 23. Artificial Tears one drop each eye daily. 24. Xanax 0.25 mg p.o. b.i.d. p.r.n. 25. Bactrim DS one tab p.o. b.i.d. 26. Diltiazem 180 mg p.o. daily. 27. Benicar 40 mg p.o. b.i.d. 28. Insulin KwikPen 10 units SQ t.i.d. with meals. 29. K-Chlor 10 mEq p.o. daily. 30. Lasix 40 mg p.o. b.i.d. PRIMARY DIAGNOSIS: Acute heart failure, preserved ejection fraction exacerbation. SECONDARY DIAGNOSES: 1. Acute kidney injury on chronic kidney disease. 2. Indeterminate troponin. 3. Mild thrombocytopenia. 4. Heart failure with preserved ejection fraction. 5. Hypothyroidism. 6. Insulin-dependent diabetes mellitus type 2. 7. Hypertension. 8. Hyperlipidemia. 9. Chronic obstructive pulmonary disease. 10. History of bladder cancer status post surgical resection. HISTORY OF PRESENT ILLNESS/HOSPITAL COURSE: Ms. Mayfield is an 83-year-old female with a past medical history of heart failure with preserved ejection fraction, presents to the emergency department with a chief complaint of worsening shortness of breath with exertion that can go up to 2 to 3 months. She denies any chest pain, shortness of breath, syncope, or respiratory distress. It was noted that her troponins and BNP are near baseline prior to her admission. In the emergency department, she received nitroglycerin paste, 325 mg of aspirin, 40 mg of IV Lasix. The patient was requested to be observed in telemetry for worsening of heart failure. The patient diuresed well and was asymptomatic the following day, deemed stable for discharge home. DISCHARGE INSTRUCTIONS: Location: Home. Activity: As tolerated. Diet: Heart healthy, low-sodium. Followup: Follow up with PCP in the next 5-7 days. Job ID: [id number] ELSA
--- NOTE | 2019-01-30 11:18 | EKG ---
Test Reason : CARDIAC HX Blood Pressure : / mmHG Vent. Rate : 076 BPM Atrial Rate : 076 BPM P-R Int : 168 ms QRS Dur : 136 ms QT Int : 438 ms P-R-T Axes : 014 -74 101 degrees QTc Int : 492 ms AV dual-paced rhythm Biventricular pacemaker detected Abnormal ECG Confirmed by GOOD MAXWELL, AVA Snyder ([id number]), legal editor ZAHRA QUIÑONES ([id number]) on 01/30/2019 11:17:59 AM Referred By: Confirmed By:AVA FUNK MD
== END 2019-01-18 17:30 | disposition home or self-care (01) | DRG 291 ==
LOC: ERS 18:30 → 2SW 20:15 → OBSVTOIN 20:15
PROVIDERS: ADMIT Family Medicine; ATTEND Family Medicine
DX: I13.0 Hypertensive heart and chronic kidney disease with heart failure and stage 1 through stage 4 chronic kidney disease, or unspecified chronic kidney disease (principal); I50.33 Acute on chronic diastolic (congestive) heart failure; N17.9 Acute kidney failure, unspecified; R79.89 Other specified abnormal findings of blood chemistry; E11.9 Type 2 diabetes mellitus without complications; E03.9 Hypothyroidism, unspecified; E78.5 Hyperlipidemia, unspecified; K59.00 Constipation, unspecified; N18.2 Chronic kidney disease, stage 2 (mild); E11.22 Type 2 diabetes mellitus with diabetic chronic kidney disease; J44.9 Chronic obstructive pulmonary disease, unspecified; E66.9 Obesity, unspecified; Z68.38 Body mass index [BMI] 38.0-38.9, adult; D69.6 Thrombocytopenia, unspecified; Z79.899 Other long term (current) drug therapy; Z85.51 Personal history of malignant neoplasm of bladder; Z79.4 Long term (current) use of insulin; Z98.890 Other specified postprocedural states; Z95.810 Presence of automatic (implantable) cardiac defibrillator; Z88.0 Allergy status to penicillin; Z88.8 Allergy status to other drugs, medicaments and biological substances
CPT/HCPCS: 36415; 36416; 71046; 80048; 80053; 82550; 82553; 83880; 84484; 85025; 93005; 94760; 96374; J1650; J1825; J1940

== ENCOUNTER 2019-01-27 10:01 | Outpatient (CLI) | payer MEDICARE, BC ==
--- NOTE | 2019-01-27 12:38 | CT ---
CT ABDOMEN WITH AND WITHOUT CONTRAST CT PELVIS WITH AND WITHOUT CONTRAST: (CT UROGRAM) DATE: 01/27/19 HISTORY: 83-year-old female with bladder cancer. COMPARISON: 10/07/16. FINDINGS: Cardiomegaly. AICD. No pleural effusion or consolidation at lung bases. No ascites or pneumoperitoneu m. Large number of colonic diverticula throughout sigmoid and descending colon. No abdominal aortic a neurysm. No major pathology of pancreas, liver, right adrenal, spleen, or right kidney. The previousl y demonstrated uniformly moderately hyperdense mass exophytically protruding from posterior aspect of left renal upper pole with densities of approximately 60-63 HU on the precontrast, nephrographic pha se, and excretory phase, scans, consistent with hemorrhagic renal cyst, measuring approximately 3.5 c m, has not significantly changed. No calculus in kidneys, ureters, or bladder. No other renal abnorma lity. Previous focal irregular thickening of right side of the urinary bladder wall has apparently resolved . Currently, no mural thickening, mass, or any other major pathology of urinary bladder identified. N o hydronephrosis. Left adrenal thickening is unchanged. IMPRESSION: 1. Interval resolution of the right-sided bladder mass since 2017. 2. No abnormality of the urinary bladder visible. 3. 3.5 cm hemorrhagic left renal cyst. POS: TPC
== END 2019-01-27 10:02 | disposition home or self-care (01) ==
LOC: BICCT 10:01
PROVIDERS: ATTEND Urology
DX: C67.2 Malignant neoplasm of lateral wall of bladder (principal); N28.1 Cyst of kidney, acquired; N32.89 Other specified disorders of bladder
CPT/HCPCS: 74178

== ENCOUNTER 2019-07-13 14:39 | Emergency (ER) | payer MEDICARE, BC ==
[2019-07-13] MEDS ORDERED: Adacel (T-DAP) 0.5 ML SYRINGE ONE (15:37)
== END 2019-07-13 16:19 | disposition home or self-care (01) ==
LOC: ERS 14:39
DX: S61.200A Unspecified open wound of right index finger without damage to nail, initial encounter (principal); I11.0 Hypertensive heart disease with heart failure; I50.9 Heart failure, unspecified; E11.9 Type 2 diabetes mellitus without complications; E03.9 Hypothyroidism, unspecified; E78.5 Hyperlipidemia, unspecified; E78.00 Pure hypercholesterolemia, unspecified; J45.909 Unspecified asthma, uncomplicated; Z79.82 Long term (current) use of aspirin; Z79.899 Other long term (current) drug therapy; Z79.4 Long term (current) use of insulin; W27.3XXA Contact with needle (sewing), initial encounter
CPT/HCPCS: 90471; 90715

== ENCOUNTER 2019-07-21 21:30 | Emergency (ER) | payer MEDICARE, BC ==
--- NOTE | 2019-07-21 22:53 | RAD ---
PA AND LATERAL VIEWS OF THE CHEST: 07/21/19 HISTORY: Cough. Congestion, sore throat. FINDINGS/IMPRESSION: Comparison made with exam of 01/17/19. The heart is enlarged. Left sided AICD remains in place. The lungs are well expanded without lobar co nsolidation, pneumothoraces, [place] pulmonary edema or pleural effusions. There is mild prominence of the pulmonary vascularity. There are degenerative changes in the spine. POS: OFF
[2019-07-21] MEDS ORDERED: Bacitracin 1 PK ONE (22:56)
== END 2019-07-21 23:08 | disposition home or self-care (01) ==
LOC: ERS 21:30
DX: J06.9 Acute upper respiratory infection, unspecified (principal); E11.9 Type 2 diabetes mellitus without complications; I11.0 Hypertensive heart disease with heart failure; I50.9 Heart failure, unspecified; J45.909 Unspecified asthma, uncomplicated
CPT/HCPCS: 71046

== ENCOUNTER 2019-10-18 17:30 | Outpatient (CLI) | payer MEDICARE, BC | END 2019-10-18 17:31 | disposition home or self-care (01) | LOC: SLEEPLAB 17:30 | PROVIDERS: ATTEND Internal Medicine Critical Care Medicine | DX: G47.33 Obstructive sleep apnea (adult) (pediatric) (principal); R53.83 Other fatigue | CPT/HCPCS: 95806 ==

== ENCOUNTER 2019-12-29 09:37 | Inpatient (IN) | payer MEDICARE, BC, OTHER ==
--- NOTE | 2019-12-29 11:02 | RAD ---
Exam: Chest one view HISTORY:Cough. Shortness of breath. Nasal congestion. Comparison: 07/21/2019 FINDINGS: Cardiac silhouette:Cardiomegaly. Pacemaker: Stable left-sided transvenous pacemaker with 3 leads, unchanged in position Aorta: Unremarkable Pulmonary vessels: Normal Costophrenic angles: Clear LUNGS: No masses or consolidation. Pneumothorax: None Osseous abnormalities: None IMPRESSION: Cardiomegaly, without evidence of congestive heart failure. No acute cardiopulmonary proc ess.
[2019-12-29 12:16] LABS: ALT (SGPT) 61 U/L (8-55); AST (SGOT) 45 U/L (5-34); Albumin 4.2 g/dL (3.4-4.8); Alkaline Phosphatase 86 U/L (40-110); Anion Gap 11 mmol/L (10-20); BUN (Urea Nitrogen) 22 mg/dL (9.8-20.1); Bilirubin, Total 1.4 mg/dL (0.2-1.2); Calc. Creatinine Clearance 0 mL/min (70-130); Carbon Dioxide 33 mmol/L (23-31); Chloride 100 mmol/L (98-107); Estimated GFR-MDRD 59; Globulin 3.4 g/dL (2.4-3.5); Glucose 115 mg/dL (83-110); Potassium 4.2 mmol/L (3.5-5.1); Protein, Total 7.6 g/dL (6.0-8.3); Sodium 140 mmol/L (136-145)
[2019-12-29] MEDS ORDERED: Furosemide 40 MG/4 ML VIAL ONE (12:43)
[2019-12-29] MEDS ORDERED: Aspirin Chewable 81 MG TAB ONE (12:43)
[2019-12-29 13:11] LABS: #Basophils 0.1 thou/uL (0.0-0.2); #Lymphocytes 2.1 thou/uL (1.20-3.40); #Monocytes 0.6 thou/uL (0.11-0.59); #Neutrophils 4.1 thou/uL (1.40-6.50); %Basophils 1.2 % (0.0-1.0); %Eosinophils 0.6 % (0.0-10.0); %Lymphocytes 29.9 % (21.0-51.0); %Monocytes 8.2 % (0.0-10.0); %Neutrophils 60.1 % (42.0-75.0); Hemoglobin 12.9 g/dL (12.0-16.0); MDiff Complete? YES; Mean Corpuscular Hemoglobin 31.7 pg (27.0-31.0); Mean Platelet Volume 12.1 fL (7.4-10.4); Platelet Count 108 thou/uL (130-400); Platelet Morphology Comment Appears Decreased; Polychromasia SLIGHT = 2-3 cells (100X) (0-2/hpf); RBC Distribution Width 13.6 % (11.5-14.5); Red Blood Cell (RBC) Count 4.08 mill/uL (4.20-5.40); White Blood Cell (WBC) Count 6.9 thou/uL (4.8-10.8)
--- NOTE | 2019-12-29 13:51 | PDOC.FPRHP ---
- History of Present Illness Chief Complaint: increasing shortness of breath History of Present Illness: Ms. Mayfield is an 84yoF with a PMH of HFpEF, HTN, DM, HLD, bladder cancer s/p resection who presents with worsening shortness of breath over the last several weeks. She reports her symptoms have worsened for the past 3 weeks. Last night she was unable to lay flat and sleep last night. She reports increasing swelling in her lower extremities. She has a pacemaker and sees Dr. Nicholas. She has associated productive cough of white phlegm and nasal congestion. She denies fever, chills, or sick contacts. Last week her pacemaker monitor was acting up and she got a new monitor. PCP: Bg, last seen last week. Surgical Scrub Technician: Lm, recently completed sleep study. Furnace Combustion Tester: Dr. Morley EP: Dr. Nicholas ED Course: ASA 325, Lasix 40mg IV - Allergies/Adverse Reactions Allergies Allergy/AdvReac Type Severity Reaction Status Date / Time Penicillins Allergy Severe Hives Verified 11/14/19 12:54 verapamil HCl [From Calan] Allergy Severe Swollen Verified 11/14/19 12:54 Lips codeine Allergy Intermediate Rash Verified 11/14/19 12:54 tramadol Allergy Intermediate Rash Verified 11/14/19 12:54 ROYAL Inhibitors Allergy COUGH Verified 11/14/19 12:54 ciprofloxacin Allergy Nausea Verified 11/14/19 12:54 morphine Allergy Nausea Verified 11/14/19 12:54 nitrofurantoin Allergy Nausea Verified 11/14/19 12:54 [From Macrobid] - Home Medications Medication Instructions Recorded Confirmed Type Atorvastatin Calcium [Lipitor] 80 mg PO HS 02/05/14 12/29/19 History Levothyroxine Sodium [Synthroid] 125 mcg PO DAILY 02/05/14 12/29/19 History Carvedilol [Coreg] 25 mg PO BID 10/25/16 12/29/19 History Diclofenac Sodium [Voltaren] 100 gm TP ASDIR PRN 10/25/16 12/29/19 History Insulin Glargine,Hum.Rec.Anlog 46 units SC QAM 10/25/16 12/29/19 History [Lantus Solostar] Sotalol HCl [Sotalol] 120 mg PO BID 10/25/16 12/29/19 History Acetaminophen [Tylenol Regular 650 mg PO Q4H PRN #0 tab 01/07/17 12/29/19 Rx Strength] Albuterol Sulfate [Proventil Hfa] 2 puff INH Q6H PRN #0 inh 01/07/17 12/29/19 Rx Ezetimibe [Zetia] 10 mg PO DAILY tab 01/07/17 12/29/19 Rx Gabapentin [Neurontin] 300 mg PO TID cap 01/07/17 12/29/19 Rx Multivit, Therapeutic [Theragran] 1 tab PO DAILY tab 01/07/17 12/29/19 Rx Spironolactone [Aldactone] 50 mg PO QAM- tab 01/07/17 12/29/19 Rx Aspirin [Ecotrin Low Strength] 81 mg PO QAM 01/27/17 12/29/19 History ALPRAZolam [Xanax] 0.25 mg PO BID PRN 06/27/18 12/29/19 History Albuterol Sulfate [Albuterol 1.25 mg NEB QID 06/27/18 12/29/19 History Sulfate Neb] Artificial Tear Radha 15ml Bot 1 drop EA EYE DAILY 06/27/18 12/29/19 History [Tears Renewed] Ascorbate Calcium [Vitamin C] 500 mg PO DAILY 06/27/18 12/29/19 History Bisacodyl [Dulcolax] 5 mg PO TID- 06/27/18 12/29/19 History Calcium Carbonate [Calcium] 500 mg PO DAILY 06/27/18 12/29/19 History HYDROcodone/Acetaminophen [[place] 1 each PO Q6H PRN 06/27/18 12/29/19 History 10-325 Tablet] Magnesium Oxide [Magnesium] 400 mg PO DAILY 06/27/18 12/29/19 History [place]-3 Fatty Acids/Fish Oil [Fish 1 cap PO DAILY 06/27/18 12/29/19 History Oil 1,000 mg Capsule] Pantoprazole [Protonix] 40 mg PO DAILY 06/27/18 12/29/19 History Zinc Amino Acid Chelate [Zinc] 50 mg PO DAILY 06/27/18 12/29/19 History Diltiazem HCl [Cartia XT] 180 mg PO DAILY 01/18/19 12/29/19 History Furosemide [Lasix] 40 mg PO BID 01/18/19 12/29/19 History Insulin Lispro [Humalog Kwikpen 10 unit SQ TID-WM 01/18/19 12/29/19 History U-100] Potassium Chloride 10 meq PO DAILY 01/18/19 12/29/19 History Cyclobenzaprine HCl 5 mg PO TID PRN 12/29/19 12/29/19 History Diltiazem HCl [Diltiazem 24Hr ER 180 mg PO DAILY 12/29/19 12/29/19 History (Xr)] - History PMHx: Hx of bladder CA s/p tumor removal atrial tachycardia s/p ablation HLD HFrEF Nonischemic Cardiomyopathy (EF 45-50% per ribbon tier 2019) HTN Hypothyroid DM2 PSHx: Debrillator placement, bladder tumor excision, cataracts FHx: CAD, CVA Social: Denies tobacco, etoh, drugs. Lives at home with son. - Review of Systems General: denies: fever/chills, weight/appetite/sleep changes, night sweats, fatigue Eyes: denies: eye pain, vision changes ENT: reports: nasal congestion. denies: rhinorrhea Respiratory: reports: cough, congestion, shortness of breath, exercise intolerance Cardiovascular: reports: edema, paroxysmal nocturnal dyspnea, orthopnea. denies : chest pain, palpitation Gastrointestinal: reports: constipation. denies: nausea, vomiting, diarrhea, abdominal pain, GI bleeding Genitourinary: denies: incontinence, dysuria, polyuria Skin: denies: rashes, lesions Musculoskeletal: denies: pain, tenderness Neurological: denies: numbness, syncope Psychological: denies: anxiety, depression - Vital signs BP: 153/100, Pulse: 78, Resp: 18, Pain: 8, O2 sat: 90% on room air, Time: 2019 12:53 - Physical Exam Constitutional: NAD, awake, alert and oriented -Constitutional: talking in short sentences due to breathing HEENT: normocephalic and atraumatic, PERRLA, EOMI, conjunctiva clear, grossly normal vision, grossly normal hearing, MMM Neck: supple, trachea midline Heart: RRR, normal S1/S2, no murmurs/rubs/gallops, pulses present -Heart: 2+ pitting edema BLE Lungs: CTAB, no respiratory distress -Lungs: Decreased breath sounds in the bases bilaterally. Abdomen: soft, non-tender, bowel sounds present -Abdomen: Scar present on lower abdomen/pannus from cancer resection. Claims she has fistula there, however no drainage noted at the present moment. Musculoskeletal: normal structure, normal tone Neurological: no focal deficit, CN II-XII intact, normal sensation Skin: no rash/lesions, good turgor, capillary refill <2 seconds Heme/Lymphatic: no unusual bruising or bleeding, no purpura, no petechia Psychiatric: normal mood and affect FMR H&P: Results - Labs Result Diagrams: 12/29/19 11:28 12/29/19 11:28 Lab results: WBC 6.9 thou/uL (4.8-10.8) 12/29/19 11:28 Hgb 12.9 g/dL (12.0-16.0) 12/29/19 11:28 Hct 40.4 % (36.0-47.0) 12/29/19 11:28 MCV 99.0 fL (78.0-98.0) H 12/29/19 11:28 Plt Count 108 thou/uL (130-400) L 12/29/19 11:28 Neutrophils % 60.1 % (42.0-75.0) 12/29/19 11:28 Sodium 140 mmol/L (136-145) 12/29/19 11:28 Potassium 4.2 mmol/L (3.5-5.1) 12/29/19 11:28 Chloride 100 mmol/L (98-107) 12/29/19 11:28 Carbon Dioxide 33 mmol/L (23-31) H 12/29/19 11:28 BUN 22 mg/dL (9.8-20.1) H 12/29/19 11:28 Creatinine 1.07 mg/dL (0.6-1.1) 12/29/19 11:28 Glucose 115 mg/dL (83-110) H 12/29/19 11:28 Calcium 9.0 mg/dL (7.8-10.44) 12/29/19 11:28 Total Bilirubin 1.4 mg/dL (0.2-1.2) H 12/29/19 11:28 AST 45 U/L (5-34) H 12/29/19 11:28 ALT 61 U/L (8-55) H 12/29/19 11:28 Alkaline Phosphatase 86 U/L (40-110) 12/29/19 11:28 CK-MB (CK-2) 6.0 ng/mL (0-6.6) 12/29/19 11:28 B-Natriuretic Peptide 724.0 pg/mL (0-100) H 12/29/19 11:28 Serum Total Protein 7.6 g/dL (6.0-8.3) 12/29/19 11:28 Albumin 4.2 g/dL (3.4-4.8) 12/29/19 11:28 - Radiology Interpretation Chest x-ray Status: report reviewed by me (IMPRESSION: Cardiomegaly, without evidence of congestive heart failure. No acute cardiopulmonary process.) FMR H&P: A/P - Problem List (1) (HFpEF) heart failure with preserved ejection fraction Current Visit: Yes Status: Acute Code(s): I50.30 - UNSPECIFIED DIASTOLIC ( CONGESTIVE) HEART FAILURE (2) Chronic hypercapnic respiratory failure Current Visit: No Status: Chronic Code(s): J96.12 - CHRONIC RESPIRATORY FAILURE WITH HYPERCAPNIA (3) Constipation Current Visit: No Status: Chronic Code(s): K59.00 - CONSTIPATION, UNSPECIFIED Qualifiers: Constipation type: unspecified constipation type Qualified Code(s): K59.00 - Constipation, unspecified (4) Diabetes mellitus type 2 in obese Current Visit: No Status: Chronic Code(s): E11.9 - TYPE 2 DIABETES MELLITUS WITHOUT COMPLICATIONS; E66.9 - OBESITY, UNSPECIFIED (5) History of atrial fibrillation Current Visit: No Status: Chronic Code(s): Z86.79 - PERSONAL HISTORY OF OTHER DISEASES OF THE CIRCULATORY SYSTEM (6) History of neoplasm of bladder Current Visit: No Status: Chronic Code(s): Z87.898 - PERSONAL HISTORY OF OTHER SPECIFIED CONDITIONS (7) Hypothyroidism Current Visit: No Status: Chronic Code(s): E03.9 - HYPOTHYROIDISM, UNSPECIFIED Qualifiers: Hypothyroidism type: unspecified Qualified Code(s): E03.9 - Hypothyroidism , unspecified - Plan Acute HFpEF exacerbation -BNP mildly elevated at 724. Patient short of breath with decreased breath sounds bilaterally. -Lasix 40mg IV BID. Patient is supposed to be taking 40mg po BID. -Will monitor renal function. -Continue home heart failure medications. -will consult heart failure clinic for assistance with management and outpatient follow up. HLD -Continue statin HTN -Continue home medications Hypothyroid -continue home medications DM2 -Continue home medications -SSI and hypoglycemia protocol RIMA -recently completed sleep study, is following with Dr. Amato Bladder cancer, s/p resection Disposition/LOS: Dispo: Stable, LOS likely >48 hours. Inpatient. Code: Full PCP: Bg FMR H&P: Upper Level - Pertinent history 84yo female with HFpEF, AICD, HTN, IDDMII presents with progressive SOB, cough and congestion over the last 3 weeks. Endorses orthopnea, and increased edema. Sees Dr Morley and Dr Nicholas outpatient. Called Dr Morley's office and was instructed to take double her dose of lasix however symptoms continued to worsen. She saw Dr Pederson last week for routine follow up and had labs drawn. Denies fever, chest pain. - Pertinent findings PE: General: Speaking in 3-5word sentences, appears SOB HEENT: Moist mucus membranes. Wearing Nasal cannula CV: RRR, no murmurs Pulm: CTA b/l Extremities: 2+ pitting edema to knees A/P: Acute hypoxic respiratory failure 2/2 HFpEF exacerbation: BNP and Trop elevated. Will continue to trend trop. CXR with cardiomegaly. EKG reviewed, no signs of acute ischemia. Currently on 2L NC, nasal cannula hanging at neck on exam with SpO2 at 90%. Given 40mg IV Lasix and ASA in ED. Will admit to tele. Monitor daily wts and strict I&Os. Will place order for 40mg IV Lasix BID, adjust dose according to urine output. For chronic medical conditions please refer to biology internship note. - Plan Date/Time: 12/29/19 1350 I, Vaishali Malone, have evaluated this patient and agree with findings/plan as outlined by biology internship resident. Pertinent changes/additions are listed here. Addendum - Attending - Attending Attestation Date/Time: 12/30/19 1329 I personally evaluated the patient and discussed the management with Dr. Cooper on 12/29/2019 I agree with the History, Examination, Assessment and Plan documented above with any addition or exceptions noted below -84yo female with HFpEF, AICD, HTN, IDDMII presents with progressive SOB, cough and congestion over the last 3 weeks. Endorses orthopnea, and increased edema. Sees Dr Morley and Dr Nicholas outpatient. Called Dr Morley's office and was instructed to take double her dose of lasix however symptoms continued to worsen. She saw Dr Pederson last week for routine follow up and had labs drawn. Denies fever, chest pain. PMH/PSH/Meds /SH reviewed and agree with resident's dcumentation. Afebrile VSS. Exam repeated by me and agree with resident's findings. Labs: MBC=890, Rz=272, K=4.2 , BUN/Cr=22/1.07, trop I=0.122. EKG- unchanged from prior EKGs. A/P: 1) Acute on chronic HFpEF - Admit for obs. Continue diuresis with IV lasix. Monitor strict I/Os. 2) DM- continue home meds. 3) HTN- continue home meds.
[2019-12-29] MEDS ORDERED: Senokot S 8.6-50 MG TAB PO PRN (15:08)
[2019-12-29] MEDS ORDERED: Dextrose 5% in Water 1,000 ML IV PRN (15:08)
[2019-12-29] MEDS ORDERED: Dextrose 50% Abboject 50 ML SYRINGE SLOW IVP PRN (15:08)
[2019-12-29] MEDS ORDERED: Ondansetron ODT 4 MG TAB PO PRN (15:08)
[2019-12-29] MEDS ORDERED: Acetaminophen 325 MG TAB PO PRN (15:08)
[2019-12-29 15:11] LABS: Troponin I 0.127 ng/mL (< 0.028)
[2019-12-29] MEDS ORDERED: Diclofenac 1% 100 GM GEL TP PRN (17:04)
[2019-12-29] MEDS ORDERED: ALPRAZolam 0.25 MG TAB PO PRN (17:04)
[2019-12-29] MEDS ORDERED: Albuterol Sulfate 1.25 MG/3 ML NEB NEB PRN (17:04)
[2019-12-29] MEDS ORDERED: Albuterol 200 PUFF (6.7GM INHALER) INH PRN (17:04)
[2019-12-29 18:16] LABS: Troponin I 0.139 ng/mL (< 0.028)
[2019-12-29] MEDS ORDERED: Furosemide 40 MG TAB PO SCH (21:00)
[2019-12-29] MEDS ORDERED: Furosemide 40 MG/4 ML VIAL SLOW IVP SCH (21:00)
[2019-12-29] MEDS: Sotalol HCl 80 MG TAB PO SCH (21:49)
[2019-12-29] MEDS: Atorvastatin Calcium 40 MG TAB PO SCH (21:49)
[2019-12-29] MEDS: Gabapentin 300 MG CAP PO SCH (21:49)
[2019-12-29] MEDS: Carvedilol 25 MG TAB PO SCH (21:50)
[2019-12-29] MEDS: HumaLOG 300 UNITS/3 ML VIAL SC PRN (22:01)
[2019-12-30] MEDS ORDERED: Sodium Chloride 0.65% Nasal 44 ML BOT EA NARE PRN (02:02)
[2019-12-30] MEDS: HYDROcodone/Acetaminophen 10/325 mg Tablet PO PRN ×2 (03:09→12:02)
[2019-12-30] MEDS: Levothyroxine Sodium 125 MCG TAB PO SCH (04:58)
--- NOTE | 2019-12-30 06:45 | PDOC.FM ---
- Subjective Subjective: Doing well this morning. Breathing more comfortably this morning. - Objective MAR Reviewed: Yes Vital Signs & Weight: Vital Signs (12 hours) Temp Pulse Resp BP BP Pulse Ox 12/30/19 04:00 98.7 F 78 16 164/86 H 99 12/29/19 23:00 98.3 F 79 16 135/77 95 12/29/19 21:49 77 12/29/19 19:21 98.4 F 77 20 145/77 H 94 L Weight Weight 103.6 kg Result Diagrams: 12/29/19 11:28 12/29/19 11:28 Phys Exam - Physical Examination Constitutional: NAD HEENT: PERRLA, moist MMs Neck: supple, full ROM Respiratory: no wheezing, no rales, no rhonchi, clear to auscultation bilateral Breath sounds improved bilaterally. Cardiovascular: RRR, no significant murmur, no rub Gastrointestinal: soft, non-tender Musculoskeletal: no edema Neurological: non-focal, normal sensation, moves all 4 limbs Psychiatric: normal affect, A&O x 3 Skin: no rash, normal turgor Dx/Plan (1) (HFpEF) heart failure with preserved ejection fraction Code(s): I50.30 - UNSPECIFIED DIASTOLIC (CONGESTIVE) HEART FAILURE Status: Acute (2) Chronic hypercapnic respiratory failure Code(s): J96.12 - CHRONIC RESPIRATORY FAILURE WITH HYPERCAPNIA Status: Chronic (3) Constipation Code(s): K59.00 - CONSTIPATION, UNSPECIFIED Status: Chronic Qualifiers: Constipation type: unspecified constipation type Qualified Code(s): K59.00 - Constipation, unspecified (4) Diabetes mellitus type 2 in obese Code(s): E11.9 - TYPE 2 DIABETES MELLITUS WITHOUT COMPLICATIONS; E66.9 - OBESITY , UNSPECIFIED Status: Chronic (5) History of atrial fibrillation Code(s): Z86.79 - PERSONAL HISTORY OF OTHER DISEASES OF THE CIRCULATORY SYSTEM Status: Chronic (6) History of neoplasm of bladder Code(s): Z87.898 - PERSONAL HISTORY OF OTHER SPECIFIED CONDITIONS Status: Chronic (7) Hypothyroidism Code(s): E03.9 - HYPOTHYROIDISM, UNSPECIFIED Status: Chronic Qualifiers: Hypothyroidism type: unspecified Qualified Code(s): E03.9 - Hypothyroidism , unspecified - Plan Plan: Acute hypoxic respiratory failure 2/2 acute HFpEF exacerbation -Lasix 40mg IV BID. Patient is supposed to be taking *correction* 80mg po BID per visit 12/12 with stone finisher. -Will monitor renal function. Strict I/O. -Continue home heart failure medications. -will consult heart failure clinic for assistance with management and outpatient follow up. HLD -Continue statin HTN -Continue home medications Hypothyroid -continue home medications DM2 -Continue home medications -SSI and hypoglycemia protocol RIMA -recently completed sleep study, is following with Dr. Amato Bladder cancer, s/p resection Disposition/LOS: Dispo: Stable, LOS likely >48 hours. Inpatient. Code: Full PCP: Bg Addendum - Attending - Attending Attestation Date/Time: 12/30/19 0293 I personally evaluated the patient and discussed the management with Dr. Cooper I agree with the History, Examination, Assessment and Plan documented above with any addition or exceptions noted below - Patinet feeling a little better; Decreased SOB. Still with pedal edema. Afebrile VSS. A/P: 1) Acute exacerbation HFpEF - improving; continue IV lasix today and hopefully transition to po tomorrow. 2) DM- stable; continue current meds.
[2019-12-30] MEDS: Furosemide 40 MG/4 ML VIAL SLOW IVP SCH ×3 (07:36→14:31)
[2019-12-30] MEDS ORDERED: Enoxaparin Sodium 40 MG/0.4 ML SYRINGE SC SCH (09:00)
[2019-12-30] MEDS ORDERED: INSULIN GLARGINE HUM REC ANLOG 46 UNIT SC SCH (09:00)
[2019-12-30] MEDS: HumaLOG 300 UNITS/3 ML VIAL SC SCH ×3 (09:54→18:40)
[2019-12-30] MEDS: Bisacodyl 5 MG TAB PO SCH ×3 (09:56→17:10)
[2019-12-30] MEDS: Gabapentin 300 MG CAP PO SCH ×3 (09:56→23:49)
[2019-12-30] MEDS: Ezetimibe 10 MG TAB PO SCH (09:56)
[2019-12-30] MEDS: Calcium Carbonate 500 MG TAB PO SCH (09:56)
[2019-12-30] MEDS: Spironolactone 25 MG TAB PO SCH (09:56)
[2019-12-30] MEDS: Zinc Sulfate 220 MG CAP PO SCH (09:56)
[2019-12-30] MEDS: Artificial Tear Sol 15 ML BOT EA EYE SCH (09:56)
[2019-12-30] MEDS: Aspirin 81 mg Enteric Coated Tablet PO SCH (09:56)
[2019-12-30] MEDS: Ascorbic Acid 500 mg Chewable Tablet PO SCH (09:57)
[2019-12-30] MEDS: PRE FILLED SC SCH (09:57)
[2019-12-30] MEDS: INSULIN GLARGINE SC SCH (09:57)
[2019-12-30] MEDS: Potassium Chloride 10 MEQ TAB PO SCH (09:57)
[2019-12-30] MEDS: Fish Oil 1,000 MG CAP PO SCH (09:57)
[2019-12-30] MEDS: Multivit, Therapeutic 1 TAB PO SCH (09:57)
[2019-12-30] MEDS: Magnesium Oxide 400 MG TAB PO SCH (09:57)
[2019-12-30] MEDS: Carvedilol 25 MG TAB PO SCH ×2 (09:59→23:49)
[2019-12-30] MEDS: Sotalol HCl 80 MG TAB PO SCH ×2 (09:59→23:49)
[2019-12-30] MEDS: HumaLOG 300 UNITS/3 ML VIAL SC PRN (12:05)
[2019-12-30 21:56] LABS: Actual Bicarbonate (HCO3a) 34.2 mEq/L (22-28); Base Excess (BEa) 3.3 mEq/L (-2.0 to +3.0); Carboxyhemoglobin (COHb) 1.4 gm% (0.0-3.0); Hemoglobin (Hb) 13.2 g/dL (12.0-16.0); O2 Tension (PaO2), arterial 59.6 mmHg (> 60.0)
[2019-12-30 21:57] LABS: Calcium, Ionized 1.16 mmol/L (1.12-1.30); Potassium - ABG Lab 4.16 mmol/L (3.70-5.30)
[2019-12-30 21:58] LABS: Puncture Site RBA
[2019-12-30 23:34] LABS: Actual Bicarbonate (HCO3a) 34.2 mEq/L (22-28); Base Excess (BEa) 3.5 mEq/L (-2.0 to +3.0); Calcium, Ionized 1.18 mmol/L (1.12-1.30); Carboxyhemoglobin (COHb) 1.6 gm% (0.0-3.0); Hemoglobin (Hb) 12.7 g/dL (12.0-16.0); Potassium - ABG Lab 3.97 mmol/L (3.70-5.30)
[2019-12-30 23:38] LABS: CO2 Tension 89.4 mmHg (35.0-45.0); Puncture Site RBRACHIAL
[2019-12-30] MEDS: Atorvastatin Calcium 40 MG TAB PO SCH (23:49)
[2019-12-30] MEDS ORDERED: Fentanyl 100 MCG/2 ML VIAL ONE (23:52)
[2019-12-30 23:53] LABS: #Basophils 0.1 thou/uL (0.0-0.2); #Lymphocytes 1.4 thou/uL (1.20-3.40); #Monocytes 0.9 thou/uL (0.11-0.59); #Neutrophils 4.6 thou/uL (1.40-6.50); %Basophils 1.1 % (0.0-1.0); %Eosinophils 0.6 % (0.0-10.0); %Lymphocytes 20.4 % (21.0-51.0); %Monocytes 12.2 % (0.0-10.0); %Neutrophils 65.7 % (42.0-75.0); Hemoglobin 12.5 g/dL (12.0-16.0); Mean Corpuscular HGB CONC 32.6 g/dL (32.0-36.0); Mean Corpuscular Hemoglobin 33.8 pg (27.0-31.0); Mean Platelet Volume 10.7 fL (7.4-10.4); Platelet Count 113 thou/uL (130-400); RBC Distribution Width 13.4 % (11.5-14.5); Red Blood Cell (RBC) Count 3.71 mill/uL (4.20-5.40)
[2019-12-31 00:06] LABS: ALT (SGPT) 65 U/L (8-55); AST (SGOT) 41 U/L (5-34); Alkaline Phosphatase 83 U/L (40-110); Anion Gap 13 mmol/L (10-20); BUN (Urea Nitrogen) 33 mg/dL (9.8-20.1); Bilirubin, Total 0.7 mg/dL (0.2-1.2); Calc. Creatinine Clearance 41 mL/min (70-130); Calcium 8.6 mg/dL (7.8-10.44); Carbon Dioxide 32 mmol/L (23-31); Chloride 101 mmol/L (98-107); Estimated GFR-MDRD 34; Globulin 2.8 g/dL (2.4-3.5); Glucose 83 mg/dL (83-110); Potassium 4.3 mmol/L (3.5-5.1); Protein, Total 6.8 g/dL (6.0-8.3); Sodium 142 mmol/L (136-145)
[2019-12-31 00:17] LABS: CKMB 6.3 ng/mL (0-6.6)
[2019-12-31] MEDS ORDERED: Propofol 1,000 MG/100 ML VIAL IV ONE (00:19)
[2019-12-31] MEDS ORDERED: Ventilator Sedation Protocol 1 EACH FS ONE (00:25)
[2019-12-31] MEDS ORDERED: Fentanyl 100 MCG/2 ML VIAL SLOW IVP SCH (00:45)
[2019-12-31] MEDS ORDERED: Succinylcholine Chloride 20 MG/ML 10 ml SYRINGE FS SCH (00:45)
[2019-12-31] MEDS ORDERED: Propofol BOLUS 1,000 MG/100 ML VIAL IV PRN (00:48)
[2019-12-31] MEDS ORDERED: Fentanyl BOLUS 250 ML IVPB PRN (00:48)
[2019-12-31] MEDS ORDERED: DISCONTINUE PREVIOUS NARCOTIC PAIN MEDICATIONS AND BENZODIAZEPINES FS SCH (00:48)
[2019-12-31] MEDS ORDERED: Lorazepam 2 MG/ML VIAL SLOW IVP PRN (00:48)
[2019-12-31] MEDS ORDERED: Morphine 2 MG/ML SYRINGE SLOW IVP PRN (00:48)
[2019-12-31 00:55] LABS: Actual Bicarbonate (HCO3a) 27.4 mEq/L (22-28); CO2 Tension 41.3 mmHg (35.0-45.0); Calcium, Ionized 1.11 mmol/L (1.12-1.30); Carboxyhemoglobin (COHb) 1.3 gm% (0.0-3.0); Hemoglobin (Hb) 12.8 g/dL (12.0-16.0); O2 Tension (PaO2), arterial 93.4 mmHg (> 60.0); Potassium - ABG Lab 4.05 mmol/L (3.70-5.30); pH, Arterial 7.44 (7.35-7.45)
[2019-12-31 00:59] LABS: ALV-art Gradient 140.175 (0-20); Puncture Site RBR
--- NOTE | 2019-12-31 01:16 | PDOC.BPN ---
<Angeles Chua - Last Filed: 12/31/19 01:35> - Brief Progress Note Called this evening by night nurse for patient being more lethargic. At bedside , she was sleepy but was oriented and answered questions appropriately. Was satting 99% on 2.5L. ABG ordered and showed worsening hypercapneic respiratory status with pH of 7.2. Transferred to [facility] and started on Bipap. CXR read pending but no new findings compared to admission. Repeat blood gas checked about 1.5 hours after and was unchanged. Dr. Berry called. Patient moved to ICU and was intubated by anesthesia. Repeat ABG with improvement. <Froylan Berry - Last Filed: 01/03/20 18:16> Addendum - Attending - Attending Attestation Date/Time: 01/03/20 721 I personally evaluated the patient and discussed the management with Dr. Chua on n12/31/19. I agree with the History, Examination, Assessment and Plan documented above with any addition or exceptions noted below.
[2019-12-31] MEDS: fentaNYL Citrate/PF 2,000 MCG in Sodium Chloride 0.9% 60 ML IV SCH (02:43)
[2019-12-31] MEDS: Furosemide 40 MG/4 ML VIAL SLOW IVP SCH (05:03)
[2019-12-31] MEDS: Levothyroxine Sodium 125 MCG TAB PO SCH (05:04)
[2019-12-31] MEDS: Propofol 1,000 MG/100 ML VIAL IV PRN ×3 (05:04→16:11)
--- NOTE | 2019-12-31 06:50 | PDOC.FM ---
- Subjective Subjective: Had an eventful evening. She is currently intubated and sedated in the unit. She has a history of RIMA, was not on CPAP prior to admission. She just completed her sleep study in the last couple of weeks but had not had her follow up with pulmonology yet. Initial ABG showed acidosis and hypercapnia. She was transferred to the unit for bipap therapy, she failed to improve on bipap and was subsequently intubated. - Objective MAR Reviewed: Yes Vital Signs & Weight: Vital Signs (12 hours) Temp Pulse Resp BP BP Pulse Ox 12/31/19 06:34 73 134/79 100 12/31/19 06:00 16 12/31/19 04:00 98.4 F 16 12/31/19 02:10 81 133/75 12/31/19 02:00 16 12/31/19 01:00 98.6 F 12/31/19 00:50 100 12/31/19 00:46 100 12/31/19 00:25 20 12/31/19 00:18 70 145/90 H 12/31/19 00:00 30 L 12/30/19 23:49 70 12/30/19 23:25 97.4 F L 12/30/19 23:10 70 24 H 95 12/30/19 22:07 97.9 F 12/30/19 21:45 97 12/30/19 19:49 98.1 F 70 16 115/66 96 Weight Admit Weight 103.9 kg Weight 103.6 kg Most Recent Monitor Data Heart Rate from ECG 79 NIBP 134/79 NIBP BP-Mean 97 Respiration from ECG 19 SpO2 100 I&O: 12/29/19 12/30/19 12/31/19 06:59 06:59 06:59 Intake Total 375 Output Total 1600 Balance -1225 Result Diagrams: 12/30/19 23:25 12/30/19 23:25 Phys Exam - Physical Examination Constitutional: NAD Intubated and sedated HEENT: PERRLA, moist MMs Neck: supple Respiratory: no wheezing, no rales, no rhonchi, clear to auscultation bilateral Breath sounds continue to improve Cardiovascular: RRR, no significant murmur Gastrointestinal: soft, no distention, positive bowel sounds 2+ pitting edema to BLE Skin: no rash, normal turgor Dx/Plan (1) (HFpEF) heart failure with preserved ejection fraction Code(s): I50.30 - UNSPECIFIED DIASTOLIC (CONGESTIVE) HEART FAILURE Status: Acute (2) Chronic hypercapnic respiratory failure Code(s): J96.12 - CHRONIC RESPIRATORY FAILURE WITH HYPERCAPNIA Status: Chronic (3) Constipation Code(s): K59.00 - CONSTIPATION, UNSPECIFIED Status: Chronic Qualifiers: Constipation type: unspecified constipation type Qualified Code(s): K59.00 - Constipation, unspecified (4) Diabetes mellitus type 2 in obese Code(s): E11.9 - TYPE 2 DIABETES MELLITUS WITHOUT COMPLICATIONS; E66.9 - OBESITY , UNSPECIFIED Status: Chronic (5) History of atrial fibrillation Code(s): Z86.79 - PERSONAL HISTORY OF OTHER DISEASES OF THE CIRCULATORY SYSTEM Status: Chronic (6) History of neoplasm of bladder Code(s): Z87.898 - PERSONAL HISTORY OF OTHER SPECIFIED CONDITIONS Status: Chronic (7) Hypothyroidism Code(s): E03.9 - HYPOTHYROIDISM, UNSPECIFIED Status: Chronic Qualifiers: Hypothyroidism type: unspecified Qualified Code(s): E03.9 - Hypothyroidism , unspecified (8) Hypercapnic respiratory failure Code(s): J96.92 - RESPIRATORY FAILURE, UNSPECIFIED WITH HYPERCAPNIA Status: Acute - Plan Plan: Acute hypoxic respiratory failure 2/2 acute HFpEF exacerbation complicated by acute hypercapneic respiratory failure -Patient was transferred to the ICU, failed bipap and was intubated. -Will decrease Lasix 20mg IV BID in light of increasing creatinine. -Patient is supposed to be taking 80mg po BID per visit 12/12 with vest busheler. -Strict I/O. DERICK Cr 1.75 this morning. Patient is diuresing so far today. Will decrease IV lasix dose and monitor renal function. HLD -Continue statin HTN -Continue home medications Hypothyroid -continue home medications DM2 -Continue home medications -SSI and hypoglycemia protocol RIMA -recently attempted home sleep study. However it was not properly completed, will need formal sleep study on d/c. Patient needs CPAP at home. Bladder cancer, s/p resection Disposition/LOS: Dispo: Stable, LOS likely >48 hours. Inpatient. Code: Full PCP: Bg Addendum - Attending - Attending Attestation Date/Time: 12/31/19 8662 I personally evaluated the patient and discussed the management with Dr. Cooper I agree with the History, Examination, Assessment and Plan documented above with any addition or exceptions noted below- Intubated and sedated. Overnight evens reviewed. Afebrile VSS. A/P: 1) Acute hypercapneic respiratory failure - blood gas improved; vent adjusted as per pulmonary. 2) CHF exacerbation - decreased lasix dose due to increased Cr. Continue to monitor I/Os. 3) DM- monitor accuchecks.
[2019-12-31 07:01] LABS: Actual Bicarbonate (HCO3a) 28.6 mEq/L (22-28); Base Excess (BEa) 7.1 mEq/L (-2.0 to +3.0); CO2 Tension 31.1 mmHg (35.0-45.0); Carboxyhemoglobin (COHb) 1.3 gm% (0.0-3.0); O2 Tension (PaO2), arterial 71.9 mmHg (> 60.0); Potassium - ABG Lab 3.05 mmol/L (3.70-5.30)
--- NOTE | 2019-12-31 07:16 | RAD ---
CHEST 1 VIEW: Date: 12/30/2019 HISTORY: Shortness of breath. COMPARISON: Radiograph prior day. FINDINGS: Heart size is enlarged. No pneumothorax. Trace effusions. Mild pulmonary venous congestion. IMPRESSION: Cardiomegaly and mild pulmonary venous congestion. POS: HOME
[2019-12-31 07:23] LABS: pH, Arterial 7.58 (7.35-7.45)
[2019-12-31 07:24] LABS: ALV-art Gradient 174.425 (0-20); Puncture Site LR
--- NOTE | 2019-12-31 07:55 | RAD ---
RADIOGRAPH CHEST 1 VIEW: DATE: 12/31/2019 TIME: 12:10 AM HISTORY: Status post intubation COMPARISON: 12/30/2019 FINDINGS: New endotracheal tube distal tip 1.2 cm superior to anselmo. Cardiomegaly remains. Pulmonary venous co ngestion. Lungs appear slightly more hazy, especially left upper lobe than yesterday. No pneumothorax. Enteric tube in left upper quadrant. IMPRESSION: 1. Status post intubation with endotracheal tube slightly superior to anselmo. This should be retracte d approximately 2 cm. 2. Congestive heart failure appears slightly worse, perhaps because of supine positioning.
[2019-12-31] MEDS: HumaLOG 300 UNITS/3 ML VIAL SC SCH ×3 (09:01→17:16)
[2019-12-31] MEDS: Enoxaparin Sodium 30 MG/0.3 ML SYRINGE SC SCH (09:34)
[2019-12-31] MEDS: Sotalol HCl 80 MG TAB PO SCH ×2 (09:34→21:14)
[2019-12-31] MEDS: Aspirin 81 mg Enteric Coated Tablet PO SCH (09:35)
[2019-12-31] MEDS: Spironolactone 25 MG TAB PO SCH (09:35)
[2019-12-31] MEDS: Potassium Chloride 10 MEQ TAB PO SCH (09:36)
[2019-12-31] MEDS: Magnesium Oxide 400 MG TAB PO SCH (09:36)
[2019-12-31] MEDS: Carvedilol 25 MG TAB PO SCH ×2 (09:36→21:14)
[2019-12-31] MEDS: Bisacodyl 5 MG TAB PO SCH ×3 (09:36→17:16)
[2019-12-31] MEDS: Fish Oil 1,000 MG CAP PO SCH (09:36)
[2019-12-31] MEDS: Gabapentin 300 MG CAP PO SCH ×3 (09:36→21:14)
[2019-12-31] MEDS: Ezetimibe 10 MG TAB PO SCH (09:37)
[2019-12-31] MEDS: Ascorbic Acid 500 mg Chewable Tablet PO SCH (09:37)
[2019-12-31] MEDS: Zinc Sulfate 220 MG CAP PO SCH (09:37)
[2019-12-31] MEDS: INSULIN GLARGINE SC SCH (09:37)
[2019-12-31] MEDS: Multivit, Therapeutic 1 TAB PO SCH (09:37)
[2019-12-31] MEDS: PRE FILLED SC SCH (09:37)
[2019-12-31] MEDS: Calcium Carbonate 500 MG TAB PO SCH (09:38)
[2019-12-31] MEDS: Artificial Tear Sol 15 ML BOT EA EYE SCH (10:03)
--- NOTE | 2019-12-31 12:26 | CON ---
DATE OF CONSULTATION: 12/31/2019 TIME SPENT: 35 minutes of critical care time. REASON FOR CONSULTATION: Respiratory failure. HISTORY OF PRESENT ILLNESS: This is an 84-year-old female with multiple medical problems, who came to the hospital yesterday with increasing shortness of breath. She is in profound congestive heart failure. She was placed on noninvasive ventilation and was presumed to have failed and was subsequently intubated and placed on mechanical ventilation. She cannot communicate with me at this time because she is currently sedated and on mechanical ventilation. PAST MEDICAL HISTORY: 1. Bladder cancer. 2. Atrial arrhythmias. 3. Hyperlipidemia. 4. Congestive heart failure. 5. Nonischemic cardiomyopathy with EF 45%. 6. Hypertension. 7. Hypothyroidism. 8. Diabetes mellitus, type 2. 9. Two failed home sleep studies. PAST SURGICAL HISTORY: 1. Defibrillator placement, bladder tumor resection, and cataract surgery. FAMILY MEDICAL HISTORY: Remarkable for coronary artery disease and stroke. SOCIAL HISTORY: Nonsmoker. Does not consume alcohol. Does not use illicit drugs. REVIEW OF SYSTEMS: Cannot be obtained at this time because she is currently on mechanical ventilation. MEDICATIONS: Prior to admission; 1. Atorvastatin. 2. Levothyroxine. 3. Carvedilol. 4. Diclofenac. 5. Insulin. 6. Sotalol. 7. Albuterol. 8. Zetia. 9. Neurontin. 10. Theragran. 11. Aldactone. 12. Aspirin. 13. Alprazolam. 14. Vitamin C. 15. Dulcolax. 16. Calcium. 17. [place]. 18. Fish oil. 19. Protonix. 20. Zinc. 21. Cartia. 22. Lasix. 23. Potassium. 24. Flexeril. ALLERGIES: PENICILLIN, VERAPAMIL, CODEINE, TRAMADOL, ROYAL INHIBITOR, CIPROFLOXACIN, MORPHINE, AND NITROFURANTOIN. PHYSICAL EXAMINATION: VITAL SIGNS: Temperature 98.4, pulse 79, blood pressure 134/79, and O2 saturation 100%. She is currently on propofol and fentanyl drips. Her intake has been 375, output 1600. HEENT: Pupils are reactive. Sclerae are anicteric. Oropharynx clear. NECK: No adenopathy or JVD. LUNGS: Diminished breath sounds at the bases. CARDIAC: S1 and S2, paced. ABDOMEN: Soft, obese, nontender, and nondistended. EXTREMITIES: No clubbing or cyanosis. She has trace edema throughout. LABORATORY DATA: Sodium 142, potassium 4.3, chloride 101, CO2 of 32, BUN 33, creatinine 1.7, and glucose 83. BNP 786. PH of 7.58, pCO2 of 31, pO2 of 71, SIMV rate 16, tidal volume 450, PEEP 5, pressure support 10, and FiO2 of 40%. White blood cell count 7, hematocrit 30.5, and platelet count 113. IMAGING DATA: Chest x-ray shows pulmonary edema. ASSESSMENT: 1. Acute on chronic systolic heart failure. 2. Acute respiratory failure, requiring mechanical ventilation. 3. Renal insufficiency. 4. Diabetes mellitus. PLAN: 1. Adjust ventilator settings. 2. Continue diuresis. 3. We will continue to follow with you. Job ID: [id number]
[2019-12-31] MEDS: Furosemide 20 MG/2 ML VIAL SLOW IVP SCH (14:51)
[2019-12-31] MEDS: Atorvastatin Calcium 40 MG TAB PO SCH (21:14)
[2020-01-01] MEDS: fentaNYL Citrate/PF 2,000 MCG in Sodium Chloride 0.9% 60 ML IV SCH (01:46)
[2020-01-01] MEDS: Propofol 1,000 MG/100 ML VIAL IV PRN ×5 (02:04→21:14)
[2020-01-01 04:35] LABS: Anion Gap 14 mmol/L (10-20); BUN (Urea Nitrogen) 21 mg/dL (9.8-20.1); Calc. Creatinine Clearance 64 mL/min (70-130); Calcium 8.5 mg/dL (7.8-10.44); Carbon Dioxide 32 mmol/L (23-31); Chloride 100 mmol/L (98-107); Estimated GFR-MDRD 61; Glucose 116 mg/dL (83-110); Potassium 4.1 mmol/L (3.5-5.1); Sodium 142 mmol/L (136-145)
[2020-01-01] MEDS: Levothyroxine Sodium 125 MCG TAB PO SCH (05:00)
[2020-01-01] MEDS: Furosemide 20 MG/2 ML VIAL SLOW IVP SCH ×2 (05:02→13:55)
[2020-01-01 05:08] LABS: #Eosinphils 0.1 thou/uL (0.0-0.7); #Lymphocytes 1.8 thou/uL (1.20-3.40); #Monocytes 0.8 thou/uL (0.11-0.59); #Neutrophils 6.7 thou/uL (1.40-6.50); %Basophils 0.1 % (0.0-1.0); %Eosinophils 1.2 % (0.0-10.0); %Lymphocytes 19.1 % (21.0-51.0); %Monocytes 8.9 % (0.0-10.0); %Neutrophils 70.7 % (42.0-75.0); Hemoglobin 12.2 g/dL (12.0-16.0); Mean Corpuscular HGB CONC 30.7 g/dL (32.0-36.0); Mean Corpuscular Hemoglobin 30.8 pg (27.0-31.0); Mean Platelet Volume 11.3 fL (7.4-10.4); Platelet Count 117 thou/uL (130-400); RBC Distribution Width 13.9 % (11.5-14.5); Red Blood Cell (RBC) Count 3.97 mill/uL (4.20-5.40); White Blood Cell (WBC) Count 9.5 thou/uL (4.8-10.8)
[2020-01-01 05:17] LABS: Platelet Morphology Comment Appears Decreased
--- NOTE | 2020-01-01 06:09 | PDOC.FM ---
- Subjective Subjective: Resting comfortably, intubated and sedated. - Objective MAR Reviewed: Yes Vital Signs & Weight: Vital Signs (12 hours) Temp Pulse Resp BP Pulse Ox 01/01/20 03:01 79 01/01/20 02:00 10 L 01/01/20 01:28 76 01/01/20 00:00 98.1 F 10 L 12/31/19 22:06 72 12/31/19 22:00 10 L 12/31/19 21:14 75 142/83 H 12/31/19 20:00 10 L 12/31/19 19:00 97.7 F 12/31/19 18:50 100 12/31/19 18:27 79 Weight Admit Weight 103.9 kg Weight 97.4 kg Most Recent Monitor Data Heart Rate from ECG 73 NIBP 136/76 NIBP BP-Mean 96 Respiration from ECG 10 SpO2 100 I&O: 12/30/19 12/31/19 01/01/20 06:59 06:59 06:59 Intake Total 375 54.9 Output Total 1600 1695 Balance -1225 -1640.1 Result Diagrams: 01/01/20 03:49 01/01/20 03:49 Phys Exam - Physical Examination Constitutional: NAD HEENT: PERRLA, sclera anicteric Neck: supple Respiratory: no wheezing, no rales, no rhonchi, clear to auscultation bilateral on ventilator Cardiovascular: RRR, no significant murmur Gastrointestinal: soft, non-tender Musculoskeletal: edema present 1+ pitting edema bilaterally Skin: no rash, normal turgor Dx/Plan (1) (HFpEF) heart failure with preserved ejection fraction Code(s): I50.30 - UNSPECIFIED DIASTOLIC (CONGESTIVE) HEART FAILURE Status: Acute (2) Chronic hypercapnic respiratory failure Code(s): J96.12 - CHRONIC RESPIRATORY FAILURE WITH HYPERCAPNIA Status: Chronic (3) Constipation Code(s): K59.00 - CONSTIPATION, UNSPECIFIED Status: Chronic Qualifiers: Constipation type: unspecified constipation type Qualified Code(s): K59.00 - Constipation, unspecified (4) Diabetes mellitus type 2 in obese Code(s): E11.9 - TYPE 2 DIABETES MELLITUS WITHOUT COMPLICATIONS; E66.9 - OBESITY , UNSPECIFIED Status: Chronic (5) History of atrial fibrillation Code(s): Z86.79 - PERSONAL HISTORY OF OTHER DISEASES OF THE CIRCULATORY SYSTEM Status: Chronic (6) History of neoplasm of bladder Code(s): Z87.898 - PERSONAL HISTORY OF OTHER SPECIFIED CONDITIONS Status: Chronic (7) Hypothyroidism Code(s): E03.9 - HYPOTHYROIDISM, UNSPECIFIED Status: Chronic Qualifiers: Hypothyroidism type: unspecified Qualified Code(s): E03.9 - Hypothyroidism , unspecified (8) Hypercapnic respiratory failure Code(s): J96.92 - RESPIRATORY FAILURE, UNSPECIFIED WITH HYPERCAPNIA Status: Acute - Plan Plan: Acute hypoxic respiratory failure 2/2 acute HFpEF exacerbation complicated by acute hypercapneic respiratory failure -Intubated and sedated. -on Lasix 20mg IV BID. Down 5.6kg, down 1640ml yesterday. -Patient is supposed to be taking 80mg po BID per visit 12/12 with tobacco drummer. -Strict I/O. -Tube feeds -Goal is to wean ventilation. DERICK, resolved Cr 1.05 this morning. Patient is diuresing well so far. Will continue to monitor. HLD -Continue statin HTN -Continue home medications Hypothyroid -continue home medications DM2 -Continue home medications -SSI and hypoglycemia protocol RIMA -recently attempted home sleep study. However it was not properly completed, will need formal sleep study on d/c. Patient needs CPAP at home. Bladder cancer, s/p resection Disposition/LOS: Dispo: Stable, LOS likely >48 hours. Inpatient. Code: Full PCP: Bg Addendum - Attending - Attending Attestation Date/Time: 01/01/20 1026 I personally evaluated the patient and discussed the management with Dr. Cooper I agree with the History, Examination, Assessment and Plan documented above with any addition or exceptions noted below- Intubated/sedated. Afebrile VSS. A/ P: 1) Acute hypercapneic hypoxic resp failure- continue to wean vent as tolerated. 2) HFrEF exacerbation- diuresing well. Continue lasix. 3) DM- stable.
[2020-01-01 06:54] LABS: Base Excess (BEa) 7.3 mEq/L (-2.0 to +3.0); CO2 Tension 50.8 mmHg (35.0-45.0); Calcium, Ionized 1.09 mmol/L (1.12-1.30); Carboxyhemoglobin (COHb) 1.2 gm% (0.0-3.0); Hemoglobin (Hb) 13.2 g/dL (12.0-16.0); O2 Tension (PaO2), arterial 76.9 mmHg (> 60.0); Potassium - ABG Lab 3.68 mmol/L (3.70-5.30); pH, Arterial 7.43 (7.35-7.45)
[2020-01-01 07:22] LABS: Puncture Site RBRACH
[2020-01-01] MEDS: HumaLOG 300 UNITS/3 ML VIAL SC SCH ×3 (08:09→17:10)
[2020-01-01] MEDS: PRE FILLED SC SCH (08:11)
[2020-01-01] MEDS: INSULIN GLARGINE SC SCH (08:11)
--- NOTE | 2020-01-01 08:14 | RAD ---
EXAM: Portable chest PROVIDED CLINICAL HISTORY: Respiratory insufficiency COMPARISON: 12/31/2019 FINDINGS: Significant interval change with respect to the prior examination is not apparent. IMPRESSION: As above.
[2020-01-01] MEDS: Multivit, Therapeutic 1 TAB PO SCH (08:15)
[2020-01-01] MEDS: Spironolactone 25 MG TAB PO SCH (08:15)
[2020-01-01] MEDS: Potassium Chloride 10 MEQ TAB PO SCH (08:15)
[2020-01-01] MEDS: Ezetimibe 10 MG TAB PO SCH (08:15)
[2020-01-01] MEDS: Enoxaparin Sodium 30 MG/0.3 ML SYRINGE SC SCH (08:16)
[2020-01-01] MEDS: Fish Oil 1,000 MG CAP PO SCH (08:16)
[2020-01-01] MEDS: Ascorbic Acid 500 mg Chewable Tablet PO SCH (08:16)
[2020-01-01] MEDS: Calcium Carbonate 500 MG TAB PO SCH (08:16)
[2020-01-01] MEDS: Bisacodyl 5 MG TAB PO SCH ×3 (08:16→17:06)
[2020-01-01] MEDS: Zinc Sulfate 220 MG CAP PO SCH (08:16)
[2020-01-01] MEDS: Magnesium Oxide 400 MG TAB PO SCH (08:16)
[2020-01-01] MEDS: Carvedilol 25 MG TAB PO SCH ×2 (08:16→20:31)
[2020-01-01] MEDS: Gabapentin 300 MG CAP PO SCH ×3 (08:16→20:31)
[2020-01-01] MEDS: Aspirin 81 mg Enteric Coated Tablet PO SCH (08:16)
[2020-01-01] MEDS: Sotalol HCl 80 MG TAB PO SCH ×2 (08:36→20:31)
[2020-01-01] MEDS ORDERED: Furosemide 20 MG/2 ML VIAL SLOW IVP SCH (09:00)
[2020-01-01] MEDS: DOBUTamine 500 mg/250 ml 250 ML IVPB SCH (09:02)
[2020-01-01] MEDS ORDERED: Succinylcholine Chloride 20 MG/ML 10 ml SYRINGE FS ONE (09:05)
[2020-01-01] MEDS: Artificial Tear Sol 15 ML BOT EA EYE SCH (09:28)
[2020-01-01] MEDS: Multivits W-Minerals Liquid 15 ML LIQ PER TUBE SCH (09:29)
--- NOTE | 2020-01-01 09:50 | PRG ---
DATE OF SERVICE: 01/01/2020 35 minutes of critical care time. SUBJECTIVE: The patient remains intubated on mechanical ventilation. She is very sleepy on sedation when I first came to see her. Sedation is now being held, so she will be reassessed later. OBJECTIVE: VITAL SIGNS: Temperature 97.9, pulse 79, blood pressure 155/87, O2 saturation 100%. 24-hour intake 375, output 1600. Weight 213 pounds. HEENT: Unremarkable. NECK: No adenopathy or JVD. CHEST: Fairly clear anteriorly. CARDIAC: S1 and S2. Regular. ABDOMEN: Soft. EXTREMITIES: Edematous. LABORATORY DATA: Sodium 142, potassium 4.1, chloride 100, CO2 of 32, BUN 21, creatinine 1.0, glucose 116. PH 7.43, pCO2 of 50, pO2 of 76 on SIMV rate of 10, tidal volume 450, PEEP 5, pressure support 10, FiO2 of 40%. White blood cell count 9.5, hematocrit 39.8, and platelet count 117. Chest x-ray shows some clearing compared to yesterday. ASSESSMENT: 1. [id number]-[id number] systolic heart failure. 2. Acute respiratory failure requiring mechanical ventilation. 3. Chronic renal insufficiency. 4. Diabetes mellitus. 5. Systolic heart failure with ejection fraction 30% to 35% with moderately depressed ejection fraction. PLAN: I will go ahead and put her on low-dose dobutamine. We will continue with the diuretics. We will hopefully move toward extubation soon. Job ID: [id number]
[2020-01-01] MEDS: HumaLOG 300 UNITS/3 ML VIAL SC PRN ×2 (12:05→17:08)
[2020-01-01] MEDS: Atorvastatin Calcium 40 MG TAB PO SCH (20:31)
[2020-01-02] MEDS: Propofol 1,000 MG/100 ML VIAL IV PRN ×3 (02:46→21:00)
[2020-01-02 04:45] LABS: Anion Gap 12 mmol/L (10-20); BUN (Urea Nitrogen) 31 mg/dL (9.8-20.1); Calc. Creatinine Clearance 48 mL/min (70-130); Calcium 8.3 mg/dL (7.8-10.44); Carbon Dioxide 35 mmol/L (23-31); Chloride 96 mmol/L (98-107); Estimated GFR-MDRD 44; Glucose 279 mg/dL (83-110); Potassium 4.1 mmol/L (3.5-5.1); Sodium 139 mmol/L (136-145)
[2020-01-02] MEDS: Furosemide 20 MG/2 ML VIAL SLOW IVP SCH (05:13)
[2020-01-02] MEDS: Levothyroxine Sodium 125 MCG TAB PO SCH (05:13)
[2020-01-02 05:29] LABS: #Lymphocytes 1.1 thou/uL (1.20-3.40); #Monocytes 1.1 thou/uL (0.11-0.59); #Neutrophils 7.8 thou/uL (1.40-6.50); %Basophils 0.2 % (0.0-1.0); %Eosinophils 0.3 % (0.0-10.0); %Lymphocytes 10.8 % (21.0-51.0); %Neutrophils 77.6 % (42.0-75.0); Mean Corpuscular Hemoglobin 31.5 pg (27.0-31.0); Mean Platelet Volume 11.5 fL (7.4-10.4); Platelet Count 96 thou/uL (130-400); RBC Distribution Width 13.9 % (11.5-14.5); Red Blood Cell (RBC) Count 3.81 mill/uL (4.20-5.40)
--- NOTE | 2020-01-02 06:07 | PDOC.FM ---
- Subjective Subjective: Doing well this morning. Currently on sedation vacation. - Objective MAR Reviewed: Yes Vital Signs & Weight: Vital Signs (12 hours) Temp Pulse Resp BP Pulse Ox 01/02/20 04:00 99.3 F 8 L 01/02/20 03:17 70 01/02/20 02:00 8 L 01/02/20 00:35 70 01/02/20 00:00 99.2 F 8 L 01/01/20 22:00 8 L 01/01/20 21:56 70 01/01/20 20:31 74 126/67 01/01/20 20:00 8 L 01/01/20 19:00 98.7 F 01/01/20 18:55 78 01/01/20 18:50 100 Weight Admit Weight 103.9 kg Weight 96.343 kg Most Recent Monitor Data Heart Rate from ECG 70 NIBP 130/73 NIBP BP-Mean 92 Respiration from ECG 14 SpO2 100 I&O: 12/31/19 01/01/20 01/02/20 06:59 06:59 06:59 Intake Total 375 54.9 780 Output Total 1600 1800 1365 Balance -1225 -1745.1 -585 Result Diagrams: 01/02/20 04:00 01/02/20 04:00 Phys Exam - Physical Examination Constitutional: NAD HEENT: moist MMs, sclera anicteric Neck: supple Respiratory: no wheezing, no rales, no rhonchi, clear to auscultation bilateral Cardiovascular: RRR, no significant murmur, no rub Gastrointestinal: soft, positive bowel sounds Musculoskeletal: pulses present 1+ Neurological: non-focal, moves all 4 limbs Skin: no rash, cap refill <2 seconds Dx/Plan (1) (HFpEF) heart failure with preserved ejection fraction Code(s): I50.30 - UNSPECIFIED DIASTOLIC (CONGESTIVE) HEART FAILURE Status: Acute (2) Chronic hypercapnic respiratory failure Code(s): J96.12 - CHRONIC RESPIRATORY FAILURE WITH HYPERCAPNIA Status: Chronic (3) Constipation Code(s): K59.00 - CONSTIPATION, UNSPECIFIED Status: Chronic Qualifiers: Constipation type: unspecified constipation type Qualified Code(s): K59.00 - Constipation, unspecified (4) Diabetes mellitus type 2 in obese Code(s): E11.9 - TYPE 2 DIABETES MELLITUS WITHOUT COMPLICATIONS; E66.9 - OBESITY , UNSPECIFIED Status: Chronic (5) History of atrial fibrillation Code(s): Z86.79 - PERSONAL HISTORY OF OTHER DISEASES OF THE CIRCULATORY SYSTEM Status: Chronic (6) History of neoplasm of bladder Code(s): Z87.898 - PERSONAL HISTORY OF OTHER SPECIFIED CONDITIONS Status: Chronic (7) Hypothyroidism Code(s): E03.9 - HYPOTHYROIDISM, UNSPECIFIED Status: Chronic Qualifiers: Hypothyroidism type: unspecified Qualified Code(s): E03.9 - Hypothyroidism , unspecified (8) Hypercapnic respiratory failure Code(s): J96.92 - RESPIRATORY FAILURE, UNSPECIFIED WITH HYPERCAPNIA Status: Acute - Plan Plan: Acute hypoxic respiratory failure 2/2 acute HFpEF exacerbation complicated by acute hypercapneic respiratory failure -Intubated and sedated. On propofol sedation. -on Lasix 40mg IV BID. -Patient is supposed to be taking 80mg po BID per visit 12/12 with customer orders clerk. -Strict I/O. -Tube feeds -Goal is to wean ventilation. DERICK Cr 1.05 > 1.38 this morning. Patient is diuresing well so far. Started on dobutamine gtt yesterday. HLD -Continue statin HTN -Continue home medications Hypothyroid -continue home medications DM2 -Continue home medications -SSI and hypoglycemia protocol RIMA -recently attempted home sleep study. However it was not properly completed, will need formal sleep study on d/c. Patient needs CPAP at home. Bladder cancer, s/p resection Disposition/LOS: Dispo: Stable, LOS likely >48 hours. Inpatient. Code: Full PCP: Bg Addendum - Attending - Attending Attestation Date/Time: 01/02/20 1019 I personally evaluated the patient and discussed the management with Dr. Cooper I agree with the History, Examination, Assessment and Plan documented above with any addition or exceptions noted below - Patent intubated/sedated. Afebrile VSS. A/P: 1) Acute hypoxic hypercapneic resp failure - weaning slowly as per pulmonary. Combination of volume and possibly obesity hypoventilation syndrome 2) HFrEF - positive balance since yesterday. Continue dobutamine. Changed to furosemide drip per pulmonary. 3) DM- tolerating tube feeds. Will adjust insulin due to elevated BG readings. 4) HTN- BP stable. Continue current meds.
[2020-01-02] MEDS: HumaLOG 300 UNITS/3 ML VIAL SC PRN ×2 (06:26→23:53)
[2020-01-02 07:11] LABS: Actual Bicarbonate (HCO3a) 32.3 mEq/L (22-28); Base Excess (BEa) 5.3 mEq/L (-2.0 to +3.0); CO2 Tension 58.4 mmHg (35.0-45.0); Calcium, Ionized 1.11 mmol/L (1.12-1.30); Carboxyhemoglobin (COHb) 1.4 gm% (0.0-3.0); Hemoglobin (Hb) 12.3 g/dL (12.0-16.0); O2 Tension (PaO2), arterial 92.5 mmHg (> 60.0); Potassium - ABG Lab 3.98 mmol/L (3.70-5.30); pH, Arterial 7.36 (7.35-7.45)
[2020-01-02 07:22] LABS: Puncture Site RRAD
[2020-01-02] MEDS: Sotalol HCl 80 MG TAB PO SCH ×2 (07:46→20:39)
[2020-01-02] MEDS: Ezetimibe 10 MG TAB PO SCH (07:46)
[2020-01-02] MEDS: Carvedilol 25 MG TAB PO SCH ×2 (07:47→20:39)
[2020-01-02] MEDS: Potassium Chloride 10 MEQ TAB PO SCH (07:47)
[2020-01-02] MEDS: Ascorbic Acid 500 mg Chewable Tablet PO SCH (07:48)
[2020-01-02] MEDS: Fish Oil 1,000 MG CAP PO SCH (07:48)
[2020-01-02] MEDS: Bisacodyl 5 MG TAB PO SCH ×3 (07:48→18:26)
[2020-01-02] MEDS: Zinc Sulfate 220 MG CAP PO SCH (07:48)
[2020-01-02] MEDS: Gabapentin 300 MG CAP PO SCH ×3 (07:48→20:39)
[2020-01-02] MEDS: Spironolactone 25 MG TAB PO SCH (07:48)
[2020-01-02] MEDS: Aspirin 81 mg Enteric Coated Tablet PO SCH (07:48)
[2020-01-02] MEDS: Calcium Carbonate 500 MG TAB PO SCH (07:48)
[2020-01-02] MEDS: PRE FILLED SC SCH (07:49)
[2020-01-02] MEDS: INSULIN GLARGINE SC SCH (07:49)
[2020-01-02] MEDS: HumaLOG 300 UNITS/3 ML VIAL SC SCH ×3 (08:16→18:25)
[2020-01-02] MEDS: Magnesium Oxide 400 MG TAB PO SCH (08:23)
[2020-01-02] MEDS: Artificial Tear Sol 15 ML BOT EA EYE SCH (08:24)
[2020-01-02] MEDS: Multivits W-Minerals Liquid 15 ML LIQ PER TUBE SCH (08:27)
--- NOTE | 2020-01-02 08:46 | PRG ---
DATE OF SERVICE: 01/02/2020 TIME SPENT: 35 minutes of critical care time. SUBJECTIVE: The patient remains on the ventilator. She is sedated. She will open her eyes. OBJECTIVE: VITAL SIGNS: On exam, temperature 99.3, pulse 78, blood pressure 157/80. 24-hour intake 1735, output 1405. HEENT: Unremarkable. NECK: No adenopathy or JVD. LUNGS: Coarse rhonchi. CARDIAC: S1 and S2 regular on dobutamine drip. ABDOMEN: Soft. EXTREMITIES: Edematous. LABORATORY DATA: The pH 7.36, pCO2 of 58, pO2 of 90, on SIMV rate of 8, tidal volume 450, PEEP 5, pressure support 10, FiO2 of 40%. White blood cell count 10, hematocrit 38.7, and platelet count 96. Sodium 139, potassium 4.1, chloride 96, CO2 of 35, BUN 31, creatinine 1.3, glucose 279. ASSESSMENT: 1. Hbysx-yi-vbgyvdr respiratory failure requiring mechanical ventilation. 2. Cardiomegaly with pulmonary edema. 3. Likely some degree of obesity hypoventilation syndrome. 4. Diabetes mellitus. 5. Chronic systolic heart failure. PLAN: 1. She is still in positive fluid balance despite the addition of dobutamine yesterday. Based on that, I will hold the Aldactone and try her on a furosemide drip. 2. Not weanable at this time. 3. Continue tube feeds. 4. I would recommend involving the patient's Cardiology team tomorrow. Job ID: [id number]
[2020-01-02] MEDS ORDERED: Furosemide 20 MG/2 ML VIAL IVP SCH (09:00)
--- NOTE | 2020-01-02 09:17 | RAD ---
PORTABLE CHEST: DATE: 01/02/2020. PROVIDED CLINICAL HISTORY: Pneumonia. FINDINGS: Comparison 01/01/2020. Significant interval change with respect to the prior examination is not appare nt. IMPRESSION: As above. POS: FELIPA
[2020-01-02] MEDS: acetaZOLAMIDE Sodium 500 mg Vial IVP SCH ×2 (10:32→20:39)
[2020-01-02] MEDS: Enoxaparin Sodium 30 MG/0.3 ML SYRINGE SC SCH (10:33)
[2020-01-02] MEDS: DOBUTamine 500 mg/250 ml 250 ML IVPB SCH (10:34)
[2020-01-02] MEDS: Furosemide 40 MG/4 ML VIAL SLOW IVP SCH ×3 (10:34→20:40)
--- NOTE | 2020-01-02 16:21 | EKG ---
Test Reason : STAT Blood Pressure : / mmHG Vent. Rate : 071 BPM Atrial Rate : 071 BPM P-R Int : 168 ms QRS Dur : 140 ms QT Int : 464 ms P-R-T Axes : 003 -82 127 degrees QTc Int : 504 ms AV dual-paced rhythm Biventricular pacemaker detected Abnormal ECG When compared with ECG of 29-DEC-2019 10:52, (Unconfirmed) Vent. rate has decreased BY 4 BPM Confirmed by ELMER WEBB (2) on 01/02/2020 4:20:40 PM Referred By: MAE Confirmed By:ELMER WEBB
[2020-01-02] MEDS: Atorvastatin Calcium 40 MG TAB PO SCH (20:39)
[2020-01-02] MEDS ORDERED: Clopidogrel Bisulfate 75 MG TAB ONE (20:56)
[2020-01-03 04:38] LABS: Anion Gap 13 mmol/L (10-20); BUN (Urea Nitrogen) 32 mg/dL (9.8-20.1); Calc. Creatinine Clearance 48 mL/min (70-130); Calcium 8.5 mg/dL (7.8-10.44); Carbon Dioxide 35 mmol/L (23-31); Chloride 96 mmol/L (98-107); Estimated GFR-MDRD 44; Glucose 320 mg/dL (83-110); Potassium 3.8 mmol/L (3.5-5.1); Sodium 140 mmol/L (136-145)
[2020-01-03] MEDS: Levothyroxine Sodium 125 MCG TAB PO SCH (05:06)
[2020-01-03] MEDS: HumaLOG 300 UNITS/3 ML VIAL SC PRN ×3 (05:27→17:38)
[2020-01-03 05:44] LABS: Hemoglobin 11.2 g/dL (12.0-16.0); Mean Corpuscular HGB CONC 32.3 g/dL (32.0-36.0); Mean Corpuscular Hemoglobin 33.2 pg (27.0-31.0); Mean Platelet Volume 11.5 fL (7.4-10.4); Platelet Count 98 thou/uL (130-400); RBC Distribution Width 13.6 % (11.5-14.5); Red Blood Cell (RBC) Count 3.37 mill/uL (4.20-5.40)
--- NOTE | 2020-01-03 05:47 | PDOC.FM ---
- Subjective Subjective: Patient is intubated and sedated. Gag reflex intact. Does not withdraw to painful stimuli. GCS 3T. Overnight nurse has noticed some thick, pink secretions w/ deep suction for several days. None elicited this AM. CXR showed mild improvement this AM. - Objective MAR Reviewed: Yes Vital Signs & Weight: Vital Signs (12 hours) Temp Pulse Resp BP Pulse Ox 01/03/20 04:00 99.1 F 14 01/03/20 02:41 70 01/03/20 02:00 16 01/03/20 01:02 70 01/03/20 00:00 99.3 F 12 01/02/20 22:06 70 01/02/20 22:00 11 L 01/02/20 20:39 70 138/60 01/02/20 20:00 13 01/02/20 19:00 99.9 F H 01/02/20 18:50 100 01/02/20 18:04 70 Weight Admit Weight 103.9 kg Weight 95.209 kg Most Recent Monitor Data Heart Rate from ECG 70 NIBP 142/71 NIBP BP-Mean 94 Respiration from ECG 19 SpO2 98 I&O: 01/01/20 01/02/20 01/03/20 06:59 06:59 06:59 Intake Total 54.9 1735.3 688 Output Total 1800 1405 1725 Balance -1745.1 330.3 -1037 Result Diagrams: 01/03/20 03:40 01/03/20 03:40 Phys Exam - Physical Examination Constitutional: NAD (resting comfortably) HEENT: PERRLA course rhonchi bilaterally Cardiovascular: RRR (telemetry showing pacing) Gastrointestinal: positive bowel sounds Musculoskeletal: edema present (mild nonpitting edema in upper extremities b/l and lower extremities b/l) CN II, III, V, VII intact. Dx/Plan (1) Hypercapnic respiratory failure Code(s): J96.92 - RESPIRATORY FAILURE, UNSPECIFIED WITH HYPERCAPNIA Status: Acute (2) Hypothyroidism Code(s): E03.9 - HYPOTHYROIDISM, UNSPECIFIED Status: Chronic Qualifiers: Hypothyroidism type: unspecified Qualified Code(s): E03.9 - Hypothyroidism , unspecified (3) Heart failure Code(s): I50.9 - HEART FAILURE, UNSPECIFIED Status: Acute (4) Acute exacerbation of CHF (congestive heart failure) Code(s): I50.9 - HEART FAILURE, UNSPECIFIED Status: Resolved - Plan Plan: Acute hypoxic respiratory failure 2/2 acute HFpEF exacerbation complicated by acute hypercapneic respiratory failure - Intubated and sedated. On propofol sedation at 15 mcg/kg/min. Fentanyl at 20 mcg/kg/min. - Vent settings: SIMV, RR 8, FiO2 40, Peep 5, pressure support 10, TV 450, Peak pressure 15-31. - Pulmonology rec Lasix gtt. Diamox added yesterday. - Strict I/O. - Tube feeds. - Goal is to wean ventilation. DERICK, improved Cr 1.05. Stable. - Patient is diuresing well so far. - dobutamine gtt yesterday. HLD -Continue statin HTN -Continue home medications Hypothyroid -continue home medications DM2 - Continue home medications. - Glargine 45 units in AM - Humalog 10 units TID-WM - SSI and hypoglycemia protocol RIMA - recently attempted home sleep study. However it was not properly completed, will need formal sleep study on d/c. Patient needs CPAP at home. Bladder cancer, s/p resection Code: Full Lines/Drains: OG, ET, PIV, Rodrigez IVF: SL. Continue diuresis. Nutrition: Tube feeds GI ppx: protonix daily VTE ppx: LVX 30 qd Dispo: Stable, LOS likely >48 hours. Inpatient. PCP: Bg Velascoendum - Attending - Attending Attestation Date/Time: 01/03/20 1206 I personally evaluated the patient and discussed the management with Dr. Leon. I agree with the History, Examination, Assessment and Plan documented above with any addition or exceptions noted below. Patient overall stable. RR increased due to hypercapnia. Backed off on diuresis due to appearance of euvolemia and contraction alkalosis. Will get cardiology on board. I/O negative for the last 24 hours.
[2020-01-03 06:05] LABS: Band 8 % (5-11); Large Platelets SLIGHT; Lymphocytes 12 % (21-51); MDiff Complete? YES; Macrocytosis SLIGHT = 6-15 cells (100X) (0-5/hpf); Monocytes 10 % (0-10); Neutrophil 70 % (42-75); Platelet Morphology Comment Appears Decreased
[2020-01-03 06:58] LABS: Actual Bicarbonate (HCO3a) 33.1 mEq/L (22-28); Base Excess (BEa) 5.6 mEq/L (-2.0 to +3.0); Calcium, Ionized 1.16 mmol/L (1.12-1.30); Carboxyhemoglobin (COHb) 1.1 gm% (0.0-3.0); Hemoglobin (Hb) 11.6 g/dL (12.0-16.0); O2 Tension (PaO2), arterial 85.8 mmHg (> 60.0); Potassium - ABG Lab 3.86 mmol/L (3.70-5.30); pH, Arterial 7.33 (7.35-7.45)
[2020-01-03 07:00] LABS: CO2 Tension 63.6 mmHg (35.0-45.0); Puncture Site RR
--- NOTE | 2020-01-03 07:49 | RAD ---
EXAM: CHEST ONE VIEW HISTORY: Pneumonia COMPARISON: 01/02/2020 FINDINGS: Endotracheal tube and nasogastric tubes remain unchanged in position. A triple lead left subclavian A ICD device is again present. Cardiac silhouette is enlarged. Increased density is present at each lung base likely related to bilateral pleural effusions and atelectasis. Superimposed infiltrate left lung base could not be entirely excluded. Chest is not significantly changed when compared to prior exam. IMPRESSION: Stable chest.
--- NOTE | 2020-01-03 09:14 | PRG ---
DATE OF SERVICE: 01/03/2020 Thirty five minutes critical care time. SUBJECTIVE: The patient remains intubated on mechanical ventilation. I cannot get her to wake up and follow commands. PHYSICAL EXAMINATION: VITAL SIGNS: Her temperature is 99.0, pulse 76, blood pressure 160/74, O2 saturation 100%. Intake for 24 hours is 1525, output 1770. Weight 209 pounds. HEENT: Unremarkable. NECK: No JVD. LUNGS: Coarse breath sounds toward the bases. CARDIAC: S1 and S2, regular. ABDOMEN: Soft. EXTREMITIES: Trace edema. LABORATORY DATA: Sodium 140, potassium 3.8, chloride 96, CO2 of 35, BUN 32, creatinine 1.3, glucose 320. White blood cell count 8, hematocrit 34.7, platelet count 98. PH 7.33, pCO2 of 64, PO2 of 85. ASSESSMENT: 1. Respiratory failure requiring mechanical ventilation. 2. Acute systolic heart failure. 3. Obesity hypoventilation syndrome. 4. Complex acid-base disorder, aggravated by Lasix. 5. Diabetes mellitus. 6. Multiple medical problems. PLAN: 1. I will increase her dobutamine slightly. 2. Stop Lasix and double the acetazolamide to see if we can help correct some of the contraction alkalosis. 3. Withhold fentanyl and narcotics as she is hypoventilating. 4. Hopefully extubate in the next 24 to 48 hours. Job ID: [id number]
[2020-01-03] MEDS: Propofol 1,000 MG/100 ML VIAL IV PRN ×2 (09:52→20:20)
[2020-01-03] MEDS: Enoxaparin Sodium 30 MG/0.3 ML SYRINGE SC SCH (09:53)
[2020-01-03] MEDS: acetaZOLAMIDE Sodium 500 mg Vial IVP SCH ×2 (09:55→20:14)
[2020-01-03] MEDS: Sterile Water 10 ML VIAL IVP SCH ×2 (09:55→20:14)
[2020-01-03] MEDS: Magnesium Oxide 400 MG TAB PO SCH (09:56)
[2020-01-03] MEDS: Potassium Chloride 10 MEQ TAB PO SCH (09:56)
[2020-01-03] MEDS: Aspirin 81 mg Enteric Coated Tablet PO SCH (09:57)
[2020-01-03] MEDS: Carvedilol 25 MG TAB PO SCH ×2 (09:57→20:15)
[2020-01-03] MEDS: Ascorbic Acid 500 mg Chewable Tablet PO SCH (09:57)
[2020-01-03] MEDS: Gabapentin 300 MG CAP PO SCH ×2 (09:57→15:15)
[2020-01-03] MEDS: Bisacodyl 5 MG TAB PO SCH ×3 (09:57→16:28)
[2020-01-03] MEDS: Fish Oil 1,000 MG CAP PO SCH (09:57)
[2020-01-03] MEDS: Ezetimibe 10 MG TAB PO SCH (09:57)
[2020-01-03] MEDS: Zinc Sulfate 220 MG CAP PO SCH (09:57)
[2020-01-03] MEDS ORDERED: Pantoprazole 40 MG GRANULES PACKET PER TUBE SCH (10:00)
[2020-01-03] MEDS: Multivits W-Minerals Liquid 15 ML LIQ PER TUBE SCH (10:02)
[2020-01-03] MEDS: Calcium Carbonate 500 MG TAB PO SCH (10:02)
[2020-01-03] MEDS: PRE FILLED SC SCH (10:03)
[2020-01-03] MEDS: INSULIN GLARGINE SC SCH (10:03)
[2020-01-03] MEDS: HumaLOG 300 UNITS/3 ML VIAL SC SCH ×4 (10:19→16:29)
[2020-01-03] MEDS: Sotalol HCl 80 MG TAB PO SCH ×2 (10:23→20:16)
[2020-01-03] MEDS: Artificial Tear Sol 15 ML BOT EA EYE SCH ×2 (10:23→10:57)
[2020-01-03] MEDS: Acetaminophen 325 MG TAB PO PRN (12:36)
[2020-01-03] MEDS: Cyclobenzaprine 10 MG TAB PO PRN (12:36)
--- NOTE | 2020-01-03 14:05 | CON ---
DATE OF CONSULTATION: 01/03/2020 REASON FOR CONSULTATION: Acute on chronic systolic heart failure. PRIMARY EBD SPECIAL EDUCATION TEACHER: Caleb Morley MD HISTORY OF PRESENT ILLNESS: Ms. Mayfield is an 84-year-old woman, who recently presented with increased shortness of breath. She underwent BiPAP and failed. She then underwent rapid sequence intubation. She has been seen and evaluated by Dr. Caleb Morley in the past. She does have a previous history of ICD and is currently on sotalol. She is felt to have a nonischemic cardiomyopathy. PAST MEDICAL HISTORY: ICD, hysterectomy. ALLERGIES: PENICILLIN, VERAPAMIL, TRAMADOL, AND CODEINE. SOCIAL HISTORY: No current tobacco or alcohol use. REVIEW OF SYSTEMS: Unobtainable. She is currently intubated and sedated. PHYSICAL EXAMINATION: GENERAL: She is currently intubated and sedated. VITAL SIGNS: Blood pressure 146/66, pulse 72, temperature afebrile. NEUROLOGIC: The patient is alert and oriented x3 with no focal neurologic deficits. HEENT: Sclerae without icterus. Mouth has moist mucous membranes with normal pallor. NECK: No JVD. Carotid upstroke brisk. No bruits bilaterally. LUNGS: Crackles noted bilaterally. BACK: No scoliosis or kyphosis. CARDIAC: Regular rate and rhythm with normal S1 and S2. No S3 or S4 noted. No significant rubs, murmurs, thrills, or gallops noted throughout the precordium. PMI is not displaced. There is no parasternal heave. ABDOMEN: Soft, nontender, nondistended. No peritoneal signs present. No hepatosplenomegaly. No abnormal striae. EXTREMITIES: 2+ femoral and 2+ dorsalis pedis pulses. No cyanosis, clubbing. 1+ pitting edema. SKIN: No gross abnormalities. PERTINENT LABORATORY DATA: Hemoglobin 11.2, hematocrit 34.7. Creatinine 1.38, GFR 44. BNP of 786. EKG shows sequential AV pacing. Current IV drips include propofol and dobutamine at 4 mcg. Echo Doppler dated, 12/31/2019, with LVEF 30% to 35%. IMPRESSION: 1. Acute on chronic systolic heart failure. 2. Nonischemic cardiomyopathy. 3. Status post ICD. RECOMMENDATIONS: 1. Continue chronotropic support with Dobutrex at 4 mcg. 2. Continue Lasix IV. 3. Pulmonary support per Pulmonary. 4. DVT prophylaxis. Job ID: [id number]
[2020-01-03] MEDS: DOBUTamine 500 mg/250 ml 250 ML IVPB SCH (18:14)
[2020-01-03] MEDS: Atorvastatin Calcium 40 MG TAB PO SCH (20:15)
[2020-01-03] MEDS ORDERED: Insulin Glargine 10 UNITS in Pre-Filled Syringe 1 EACH SC SCH (21:00)
[2020-01-04] MEDS: HumaLOG 300 UNITS/3 ML VIAL SC PRN ×2 (00:16→04:04)
[2020-01-04 05:01] LABS: Anion Gap 13 mmol/L (10-20); BUN (Urea Nitrogen) 25 mg/dL (9.8-20.1); Calc. Creatinine Clearance 56 mL/min (70-130); Calcium 8.9 mg/dL (7.8-10.44); Carbon Dioxide 32 mmol/L (23-31); Chloride 98 mmol/L (98-107); Estimated GFR-MDRD 55; Glucose 287 mg/dL (83-110); Potassium 3.3 mmol/L (3.5-5.1); Sodium 140 mmol/L (136-145)
[2020-01-04] MEDS: Levothyroxine 150 MCG TAB PO SCH (05:37)
[2020-01-04] MEDS: hydrALAZINE 20 MG/ML VIAL SLOW IVP PRN ×2 (05:37→12:09)
[2020-01-04] MEDS ORDERED: HumaLOG 300 UNITS/3 ML VIAL SC SCH (05:51)
--- NOTE | 2020-01-04 05:58 | PDOC.FM ---
- Subjective Subjective: Overnight temp of 100.2 F. Per RN, nurse reported attempt to wean propofol and patient "went crazy." Telemetry showing pacing. Pt having some spontaneous movement of her legs this AM. - Objective MAR Reviewed: Yes Vital Signs & Weight: Vital Signs (12 hours) Temp Pulse Resp BP Pulse Ox 01/04/20 05:37 71 171/77 H 01/04/20 04:00 99.5 F 14 01/04/20 02:33 71 171/77 H 01/04/20 02:00 14 01/04/20 00:00 98.8 F 14 01/03/20 22:00 14 01/03/20 21:37 71 153/86 H 01/03/20 20:16 78 169/88 H 01/03/20 19:46 14 100 01/03/20 19:00 100.2 F H 01/03/20 18:28 78 169/88 H 01/03/20 18:00 14 Weight Admit Weight 103.9 kg Weight 92.6 kg Most Recent Monitor Data Heart Rate from ECG 80 NIBP 182/78 NIBP BP-Mean 112 Respiration from ECG 14 SpO2 100 I&O: 01/02/20 01/03/20 01/04/20 06:59 06:59 06:59 Intake Total 1735.3 1525.7 1300 Output Total 1405 1770 1875 Balance 330.3 -244.3 -575 Result Diagrams: 01/04/20 03:50 01/04/20 03:50 Phys Exam - Physical Examination Constitutional: NAD (moving legs b/l possibly due to agitation) coarse rhonchi b/l, no specific consolidated sounds auscultated Cardiovascular: RRR Gastrointestinal: soft, no distention, positive bowel sounds mild nonpitting edema Dx/Plan (1) Hypercapnic respiratory failure Code(s): J96.92 - RESPIRATORY FAILURE, UNSPECIFIED WITH HYPERCAPNIA Status: Acute (2) Hypothyroidism Code(s): E03.9 - HYPOTHYROIDISM, UNSPECIFIED Status: Chronic Qualifiers: Hypothyroidism type: unspecified Qualified Code(s): E03.9 - Hypothyroidism , unspecified (3) Heart failure Code(s): I50.9 - HEART FAILURE, UNSPECIFIED Status: Acute (4) Acute exacerbation of CHF (congestive heart failure) Code(s): I50.9 - HEART FAILURE, UNSPECIFIED Status: Resolved - Plan Plan: Acute hypoxic respiratory failure 2/2 acute HFpEF exacerbation complicated by acute hypercapneic respiratory failure - Fentanyl drip discontinued yesterday. Gabapentin updated to prn since patient takes prn at home and often becomes sedated w/ this at home. - Intubated and sedated. On propofol sedation at 15 mcg/kg/min. Consider precedex. - Vent settings: SIMV, RR 14, FiO2 40, Peep 5, pressure support 10, TV 450, Peak pressure 32. - Continued pink tinged secretions. Continue deep suction. Consider bronchoscopy prior to extubation. - Pulmonology rec. Diamox doubled yesterday. Lasix stopped yesterday. - Cardiology consulted. Appreciate recs. - Strict I/O. - Tube feeds. - Goal is to wean ventilation. DERICK, improved Stable. - Patient has diuresed well so far. - dobutamine gtt HLD -Continue statin HTN -Continue home medications Hypothyroid -continue home medications DM2 - Continue home medications. - Glargine 50 units in AM, 25 units in PM (increased) - Humalog 15 units TID-WM (increased from 10 units TID) - SSI and hypoglycemia protocol RIMA - recently attempted home sleep study. However it was not properly completed, will need formal sleep study on d/c. Patient needs CPAP at home. Bladder cancer, s/p resection Code: Full Lines/Drains: OG, ET, PIV, Rodrigez IVF: SL. Nutrition: Tube feeds GI ppx: protonix daily VTE ppx: LVX 30 qd Dispo: Stable, LOS likely >48 hours. Inpatient. PCP: Bg Addendum - Attending - Attending Attestation Date/Time: 01/04/20 1120 I personally evaluated the patient and discussed the management with Dr. Leon. I agree with the History, Examination, Assessment and Plan documented above with any addition or exceptions noted below. Patient overall stable, in neuro chair today. Continue respiratory support per Pulm. Contraction alkalosis improved. ABG improved. Backing off diuresis. Cardiology on board. Monitor temp closely. Renal function improved, need improved glucose control.
[2020-01-04] MEDS ORDERED: Potassium Chloride 20 MEQ in Premix Bag 1 BAG IVPB SCH (06:00)
[2020-01-04] MEDS: Propofol 1,000 MG/100 ML VIAL IV PRN (06:34)
[2020-01-04 07:20] LABS: Actual Bicarbonate (HCO3a) 30.7 mEq/L (22-28); Base Excess (BEa) 6.3 mEq/L (-2.0 to +3.0); Calcium, Ionized 1.17 mmol/L (1.12-1.30); Carboxyhemoglobin (COHb) 1.3 gm% (0.0-3.0); O2 Tension (PaO2), arterial 82.7 mmHg (> 60.0); Potassium - ABG Lab 2.95 mmol/L (3.70-5.30); pH, Arterial 7.47 (7.35-7.45)
[2020-01-04 07:22] LABS: Puncture Site RR
[2020-01-04 07:27] LABS: #Eosinphils 0.1 thou/uL (0.0-0.7); #Lymphocytes 1.5 thou/uL (1.20-3.40); #Monocytes 0.9 thou/uL (0.11-0.59); #Neutrophils 5.7 thou/uL (1.40-6.50); %Basophils 0.3 % (0.0-1.0); %Eosinophils 0.7 % (0.0-10.0); %Lymphocytes 18.5 % (21.0-51.0); %Monocytes 10.8 % (0.0-10.0); %Neutrophils 69.6 % (42.0-75.0); Hemoglobin 10.7 g/dL (12.0-16.0); Mean Corpuscular HGB CONC 30.6 g/dL (32.0-36.0); Mean Corpuscular Hemoglobin 31.2 pg (27.0-31.0); Mean Platelet Volume 12.9 fL (7.4-10.4); Platelet Count 90 thou/uL (130-400); RBC Distribution Width 13.6 % (11.5-14.5); Red Blood Cell (RBC) Count 3.43 mill/uL (4.20-5.40); White Blood Cell (WBC) Count 8.2 thou/uL (4.8-10.8)
--- NOTE | 2020-01-04 07:59 | RAD ---
Exam: Chest one view HISTORY:Pneumonia Comparison: 01/03/2020 FINDINGS: Lines and tubes: Endotracheal tube is approximately 3.2 cm above the anselmo. Nasogastric tube termina leonard the left upper quadrant. Stable left-sided defibrillator. Cardiac silhouette:Cardiomegaly Aorta: Atherosclerosis of the aortic knob Pulmonary vessels: Normal Costophrenic angles: Bilateral pleural effusions LUNGS: Stable scattered interstitial and alveolar opacities. Pneumothorax: None Osseous abnormalities: None IMPRESSION: 1. Redemonstration of congestive heart failure. Superimposed airspace disease cannot be excluded. 2. No significant interval change.
[2020-01-04] MEDS ORDERED: Norepinephrine 4 MG/4 ML VIAL ONE (08:13)
[2020-01-04 08:17] LABS: MDiff Complete? YES; Polychromasia SLIGHT = 2-3 cells (100X) (0-2/hpf)
--- NOTE | 2020-01-04 08:23 | PRG ---
DATE OF SERVICE: 01/04/2020 TIME SPENT: 35 minutes of critical care time. SUBJECTIVE: The patient remains intubated on mechanical ventilation. She will wake up, but does not follow any commands for me. OBJECTIVE: VITAL SIGNS: Her temperature is 99.5 with T-max of 100.2, pulse 72, blood pressure 142/64, O2 saturation 98%. Intake for 24 hours, 2180, output 1980, weight 204 pounds. HEENT: Unremarkable. NECK: No adenopathy or JVD. LUNGS: Coarse breath sounds. Cardiovascular S1, S2 regular and paced. ABDOMEN: Soft and nontender. EXTREMITIES: Have profound arm edema. LABORATORY DATA: White blood cell count 8.2, hematocrit 34.9, platelet count 90, pH 7.47, pCO2 of 43, pO2 of 82 on SIMV rate 14, tidal volume 450, PEEP 5, pressure 10, FiO2 40%. Sodium 140, potassium 3.3, chloride 98, CO2 of 32, BUN 24, creatinine 1.1, glucose 187. IMAGING: Chest x-ray continues to show bilateral pulmonary edema. ASSESSMENT: 1. Qbazk-ek-pqnrepu systolic heart failure. 2. Acute respiratory failure requiring mechanical ventilation. 3. Chronic nonischemic cardiomyopathy. 4. Complex acid-base status. PLAN: 1. Continue to withhold narcotic medications. 2. I will decrease her rate, increase her pressure support and try to get her used to breathing on her own in hopes of getting her extubated and up in a neuro chair. Job ID: [id number]
[2020-01-04] MEDS: Enoxaparin Sodium 30 MG/0.3 ML SYRINGE SC SCH (08:24)
[2020-01-04] MEDS: Bisacodyl 5 MG TAB PO SCH ×3 (08:25→15:53)
[2020-01-04] MEDS: Potassium Chloride 10 MEQ TAB PO SCH (08:25)
[2020-01-04] MEDS: Fish Oil 1,000 MG CAP PO SCH (08:25)
[2020-01-04] MEDS: Sterile Water 10 ML VIAL IVP SCH ×3 (08:25→21:18)
[2020-01-04] MEDS: Ascorbic Acid 500 mg Chewable Tablet PO SCH (08:25)
[2020-01-04] MEDS: acetaZOLAMIDE Sodium 500 mg Vial IVP SCH ×3 (08:25→21:14)
[2020-01-04] MEDS: Zinc Sulfate 220 MG CAP PO SCH (08:25)
[2020-01-04] MEDS: Pantoprazole 40 MG GRANULES PACKET PER TUBE SCH (08:26)
[2020-01-04] MEDS: Aspirin 81 mg Enteric Coated Tablet PO SCH (08:26)
[2020-01-04] MEDS: Ezetimibe 10 MG TAB PO SCH (08:26)
[2020-01-04] MEDS: Carvedilol 25 MG TAB PO SCH ×2 (08:26→21:17)
[2020-01-04] MEDS: Calcium Carbonate 500 MG TAB PO SCH (08:28)
[2020-01-04] MEDS: Magnesium Oxide 400 MG TAB PO SCH (08:29)
[2020-01-04] MEDS: Insulin Glargine 50 UNITS in Pre-Filled Syringe 1 EACH SC SCH (08:48)
[2020-01-04] MEDS ORDERED: Insulin Glargine 30 UNITS in Pre-Filled Syringe 1 EACH SC SCH (09:00)
[2020-01-04] MEDS: HumaLOG 300 UNITS/3 ML VIAL SC SCH ×3 (10:22→16:55)
[2020-01-04] MEDS: Multivits W-Minerals Liquid 15 ML LIQ PER TUBE SCH (11:22)
[2020-01-04] MEDS: Artificial Tear Sol 15 ML BOT EA EYE SCH (11:22)
[2020-01-04] MEDS: Sotalol HCl 80 MG TAB PO SCH ×2 (11:23→21:16)
[2020-01-04] MEDS: hydrALAZINE 25 MG TAB PO SCH ×2 (15:37→21:17)
[2020-01-04] MEDS: DOBUTamine 500 mg/250 ml 250 ML IVPB SCH (16:01)
[2020-01-04] MEDS: Insulin Glargine 25 UNITS in Pre-Filled Syringe 1 EACH SC SCH (21:15)
[2020-01-04] MEDS: Isosorbide Dinitrate 20 MG TAB PO SCH (21:16)
[2020-01-04] MEDS: Atorvastatin Calcium 40 MG TAB PO SCH (21:17)
[2020-01-05] MEDS: HumaLOG 300 UNITS/3 ML VIAL SC PRN ×4 (00:10→21:41)
[2020-01-05 04:41] LABS: Anion Gap 11 mmol/L (10-20); BUN (Urea Nitrogen) 27 mg/dL (9.8-20.1); Calc. Creatinine Clearance 63 mL/min (70-130); Calcium 8.8 mg/dL (7.8-10.44); Carbon Dioxide 32 mmol/L (23-31); Chloride 99 mmol/L (98-107); Estimated GFR-MDRD 64; Glucose 272 mg/dL (83-110); Sodium 139 mmol/L (136-145)
[2020-01-05 05:12] LABS: Hemoglobin 10.9 g/dL (12.0-16.0); Mean Corpuscular HGB CONC 32.1 g/dL (32.0-36.0); Mean Corpuscular Hemoglobin 32.5 pg (27.0-31.0); Mean Platelet Volume 10.9 fL (7.4-10.4); Platelet Count 125 thou/uL (130-400); RBC Distribution Width 13.7 % (11.5-14.5); Red Blood Cell (RBC) Count 3.34 mill/uL (4.20-5.40); White Blood Cell (WBC) Count 8.5 thou/uL (4.8-10.8)
[2020-01-05] MEDS: Levothyroxine 150 MCG TAB PO SCH (05:14)
[2020-01-05 05:39] LABS: Band 15 % (5-11); Eosinophils 1 % (0-10); Lymphocytes 24 % (21-51); MDiff Complete? YES; Metamyelocyte 1 % (0-0); Monocytes 13 % (0-10); Neutrophil 46 % (42-75)
--- NOTE | 2020-01-05 05:53 | PDOC.FM ---
- Subjective Subjective: Pt is sleeping comfortably on ventilator. Taking spontaneous breaths of 100-250 mL TV. Per RN, pt has been agitated since 2 am this morning. Increased precedex to 0.6. RN concerned pt needs something for pain. RN also reports abdomen more distended and pulled out quite a bit of air this morning. - Objective MAR Reviewed: Yes Vital Signs & Weight: Vital Signs (12 hours) Temp Pulse Resp BP Pulse Ox 01/05/20 04:00 98.9 F 17 01/05/20 02:51 70 01/05/20 02:00 24 H 01/05/20 00:00 98.3 F 28 H 01/04/20 22:23 70 135/66 01/04/20 22:00 20 01/04/20 21:17 70 158/73 H 01/04/20 21:16 70 158/73 H 01/04/20 20:00 24 H 01/04/20 19:00 99.3 F 01/04/20 18:50 100 01/04/20 18:29 70 01/04/20 17:56 15 Weight Admit Weight 103.9 kg Weight 91.671 kg Most Recent Monitor Data Heart Rate from ECG 71 NIBP 158/76 NIBP BP-Mean 103 Respiration from ECG 16 SpO2 96 I&O: 01/03/20 01/04/20 01/05/20 06:59 06:59 06:59 Intake Total 1525.7 2189 917.7 Output Total 1770 1979 1989 Balance -244.3 209 -1072.3 Result Diagrams: 01/05/20 04:10 01/05/20 04:10 Phys Exam - Physical Examination Constitutional: NAD Respiratory: no wheezing, clear to auscultation bilateral Cardiovascular: RRR, no significant murmur Gastrointestinal: soft (moderate distension, increased from yesterday, hypoactive BS) Musculoskeletal: no edema (in LE b/l) opens eyes to pain, commands. Dx/Plan (1) Hypercapnic respiratory failure Code(s): J96.92 - RESPIRATORY FAILURE, UNSPECIFIED WITH HYPERCAPNIA Status: Acute (2) Hypothyroidism Code(s): E03.9 - HYPOTHYROIDISM, UNSPECIFIED Status: Chronic Qualifiers: Hypothyroidism type: unspecified Qualified Code(s): E03.9 - Hypothyroidism , unspecified (3) Heart failure Code(s): I50.9 - HEART FAILURE, UNSPECIFIED Status: Acute (4) Acute exacerbation of CHF (congestive heart failure) Code(s): I50.9 - HEART FAILURE, UNSPECIFIED Status: Resolved - Plan Plan: Acute hypoxic respiratory failure 2/2 acute HFpEF exacerbation complicated by acute hypercapneic respiratory failure - discontinued propofol yesterday. Now on precedex. - Vent settings: SIMV, RR 8, FiO2 40, Peep 5, pressure support 18, TV 450, Peak pressure 15-30. - Continue deep suction. Consider bronchoscopy prior to extubation. - Pulmonology rec. Diamox now TID. - Cardiology consulted. Appreciate recs. Added hydralazine TID and isosorbide dinitrate BID. Continuing diltiazem and carvedilol. - Dobutamine gtt at 5. - Strict I/O. - Tube feeds. glucose continuing to run high after insulin increase. Will order Glucerna for TF along w/ sugar free prostat BID. - Goal is to wean ventilation. Hypokalemia - monitor and continue electrolyte replacement. - magnesium wnl DERICK, resolved - Stable. HLD -Continue statin HTN -Continue home medications Hypothyroid -continue home medications DM2 - Continue home medications. - Glargine 50 units in AM, 25 units in PM (increased) - Humalog 15 units TID-WM (increased from 10 units TID) - SSI and hypoglycemia protocol - Change TF to Glucerna. RIMA - recently attempted home sleep study. However it was not properly completed, will need formal sleep study on d/c. Patient needs CPAP at home. Bladder cancer, s/p resection Code: Full Lines/Drains: OG, ET, PIV, Midline, Rodrigez IVF: SL. Nutrition: Tube feeds. Stop vital high protein and start glucerna. GI ppx: protonix daily VTE ppx: LVX 30 qd Addendum - Attending - Attending Attestation Date/Time: 01/05/20 1108 I personally evaluated the patient and discussed the management with Dr. Leon. I agree with the History, Examination, Assessment and Plan documented above with any addition or exceptions noted below. Patient improved. Had SBT this morning and now on CPAP. Calm on Precedex. Continue vent weaning per Pulm. Continue mild diuresis though she appears near euvolemia. Cardiology on board. Working on BP and glycemic control.
[2020-01-05] MEDS ORDERED: Potassium Chloride 40 MEQ in Sodium Chloride 0.9% 250 ML 250 ML IVPB SCH (06:15)
[2020-01-05 07:09] LABS: Actual Bicarbonate (HCO3a) 25.8 mEq/L (22-28); CO2 Tension 42.2 mmHg (35.0-45.0); Calcium, Ionized 1.19 mmol/L (1.12-1.30); Carboxyhemoglobin (COHb) 1.4 gm% (0.0-3.0); Hemoglobin (Hb) 11.4 g/dL (12.0-16.0); O2 Tension (PaO2), arterial 143.2 mmHg (> 60.0); Potassium - ABG Lab 3.27 mmol/L (3.70-5.30); pH, Arterial 7.41 (7.35-7.45)
[2020-01-05 07:11] LABS: Puncture Site RRA
[2020-01-05] MEDS: DOBUTamine 500 mg/250 ml 250 ML IVPB SCH (07:39)
--- NOTE | 2020-01-05 08:11 | RAD ---
SINGLE VIEW OF THE CHEST: Comparison: 01-04-2020 History: Pneumonia. FINDINGS: Single view of the chest shows an enlarged cardiomediastinal silhouette. The lines and tubes are unch anged in position. The pacemaker is unchanged in position. Opacity seen in the lower aspect of each t horax. This likely represents a combination of infiltrates and small bilateral pleural effusions. IMPRESSION: Stable exam. POS: EAA
--- NOTE | 2020-01-05 08:23 | PRG ---
DATE OF SERVICE: 01/05/2020 TIME SPENT: 35 minutes of critical care time. SUBJECTIVE: This patient remains intubated on mechanical ventilation. She is currently on a Precedex drip. She will wake up for me and follow commands. OBJECTIVE: VITAL SIGNS: Temperature 98.9, pulse 73, blood pressure 166/86, O2 saturation 100%. Twenty-four hour intake 1819, output 2065. HEENT: Unremarkable. NECK: No JVD. LUNGS: Clear. CARDIAC: S1 and S2, irregular. ABDOMEN: Soft. EXTREMITIES: Edematous. LABORATORY DATA: White blood cell count 8.5, hematocrit 33.8, and platelet count 125. PH of 7.41, pCO2 of 42, pO2 of 143, that is on SIMV rate of 8. Tidal volume 450, PEEP 5, pressure support 15, FiO2 40%. Sodium 139, potassium 3.0, chloride 99, CO2 of 32, BUN 27, creatinine 1.0, and glucose 272. IMAGING STUDIES: Chest x-ray demonstrates continued bilateral pulmonary edema and small effusions. ASSESSMENT: 1. Acute respiratory failure requiring mechanical ventilation. 2. Acute on chronic systolic heart failure. 3. Chronic nonischemic cardiomyopathy. 4. Complex acid-base status-now with slightly improved metabolic alkalosis. PLAN: I will go ahead and add a dose of Lasix on top of her current acetazolamide. We will try her on spontaneous breathing trial today, but I am not confident at all that she is ready to extubate. Job ID: [id number]
[2020-01-05] MEDS: HumaLOG 300 UNITS/3 ML VIAL SC SCH ×3 (08:33→16:50)
[2020-01-05] MEDS: Bisacodyl 5 MG TAB PO SCH ×3 (08:33→16:50)
[2020-01-05] MEDS ORDERED: Senokot S 8.6-50 MG TAB PO PRN (09:00)
[2020-01-05] MEDS: hydrALAZINE 25 MG TAB PO SCH ×3 (09:14→21:39)
[2020-01-05] MEDS: Aspirin 81 mg Enteric Coated Tablet PO SCH (09:14)
[2020-01-05] MEDS: Sterile Water 10 ML VIAL IVP SCH ×3 (09:14→21:40)
[2020-01-05] MEDS: acetaZOLAMIDE Sodium 500 mg Vial IVP SCH ×3 (09:14→21:38)
[2020-01-05] MEDS: Ascorbic Acid 500 mg Chewable Tablet PO SCH (09:15)
[2020-01-05] MEDS: Zinc Sulfate 220 MG CAP PO SCH (09:15)
[2020-01-05] MEDS: Enoxaparin Sodium 30 MG/0.3 ML SYRINGE SC SCH (09:15)
[2020-01-05] MEDS: Pantoprazole 40 MG GRANULES PACKET PER TUBE SCH (09:15)
[2020-01-05] MEDS: Ezetimibe 10 MG TAB PO SCH (09:15)
[2020-01-05] MEDS: Carvedilol 25 MG TAB PO SCH ×2 (09:15→21:38)
[2020-01-05] MEDS: Potassium Chloride 20 MEQ TAB PO SCH (09:16)
[2020-01-05] MEDS: Calcium Carbonate 500 MG TAB PO SCH (09:16)
[2020-01-05] MEDS: Furosemide 40 MG/4 ML VIAL SLOW IVP SCH (09:16)
[2020-01-05] MEDS: Fish Oil 1,000 MG CAP PO SCH (09:16)
[2020-01-05] MEDS: Artificial Tear Sol 15 ML BOT EA EYE SCH (09:17)
[2020-01-05] MEDS: Magnesium Oxide 400 MG TAB PO SCH (09:17)
[2020-01-05] MEDS: Insulin Glargine 50 UNITS in Pre-Filled Syringe 1 EACH SC SCH (09:24)
[2020-01-05] MEDS: Isosorbide Dinitrate 20 MG TAB PO SCH ×2 (09:35→21:40)
[2020-01-05] MEDS: Senokot S 8.6-50 MG TAB PO SCH ×2 (09:35→21:40)
[2020-01-05] MEDS: Polyethylene Glycol 3350 17 GM Packet PER TUBE SCH (09:35)
[2020-01-05] MEDS: Multivits W-Minerals Liquid 15 ML LIQ PER TUBE SCH (09:35)
[2020-01-05] MEDS: Sotalol HCl 80 MG TAB PO SCH ×2 (09:36→21:40)
[2020-01-05] MEDS ORDERED: hydrALAZINE 25 MG TAB PO SCH ×2 (09:45)
[2020-01-05] MEDS: Morphine 2 MG/ML SYRINGE SLOW IVP PRN (16:55)
[2020-01-05] MEDS: Atorvastatin Calcium 40 MG TAB PO SCH (21:38)
[2020-01-05] MEDS: Insulin Glargine 25 UNITS in Pre-Filled Syringe 1 EACH SC SCH (21:39)
[2020-01-06] MEDS: DOBUTamine 500 mg/250 ml 250 ML IVPB SCH ×2 (00:28→17:52)
[2020-01-06 05:01] LABS: Anion Gap 11 mmol/L (10-20); BUN (Urea Nitrogen) 23 mg/dL (9.8-20.1); Calc. Creatinine Clearance 71 mL/min (70-130); Calcium 8.7 mg/dL (7.8-10.44); Carbon Dioxide 30 mmol/L (23-31); Chloride 103 mmol/L (98-107); Estimated GFR-MDRD 73; Glucose 162 mg/dL (83-110); Potassium 3.2 mmol/L (3.5-5.1); Sodium 141 mmol/L (136-145)
[2020-01-06 06:10] LABS: Band 18 % (5-11); Eosinophils 4 % (0-10); Hemoglobin 10.8 g/dL (12.0-16.0); Lymphocytes 27 % (21-51); MDiff Complete? YES; Mean Corpuscular HGB CONC 31.1 g/dL (32.0-36.0); Mean Corpuscular Volume 99.7 fL (78.0-98.0); Mean Platelet Volume 11.4 fL (7.4-10.4); Monocytes 8 % (0-10); Neutrophil 43 % (42-75); Platelet Count 149 thou/uL (130-400); RBC Distribution Width 13.6 % (11.5-14.5); Red Blood Cell (RBC) Count 3.47 mill/uL (4.20-5.40); White Blood Cell (WBC) Count 8.8 thou/uL (4.8-10.8)
[2020-01-06 07:19] LABS: Actual Bicarbonate (HCO3a) 26.6 mEq/L (22-28); Base Excess (BEa) 2.2 mEq/L (-2.0 to +3.0); CO2 Tension 40.6 mmHg (35.0-45.0); Calcium, Ionized 1.18 mmol/L (1.12-1.30); Carboxyhemoglobin (COHb) 1.1 gm% (0.0-3.0); Hemoglobin (Hb) 11.4 g/dL (12.0-16.0); Potassium - ABG Lab 3.07 mmol/L (3.70-5.30); pH, Arterial 7.43 (7.35-7.45)
[2020-01-06 07:21] LABS: Puncture Site L.R.
--- NOTE | 2020-01-06 07:23 | PDOC.FM ---
- Subjective Subjective: pt ventilated and sedated. non responsive to pain, pupils reactive. - Objective Vital Signs & Weight: Vital Signs (12 hours) Temp Pulse Resp BP 01/06/20 07:03 80 154/75 H 01/06/20 06:00 99.2 F 22 H 01/06/20 04:00 22 H 01/06/20 02:40 71 01/06/20 02:00 21 H 01/06/20 00:00 99.3 F 22 H 01/05/20 23:56 80 124/66 01/05/20 22:00 36 H 01/05/20 21:40 82 169/80 H 01/05/20 21:39 82 169/80 H 01/05/20 20:00 19 Weight Admit Weight 103.9 kg Weight 105.4 kg Most Recent Monitor Data Heart Rate from ECG 80 NIBP 154/75 NIBP BP-Mean 101 Respiration from ECG 19 SpO2 100 I&O: 01/05/20 01/06/20 01/07/20 06:59 06:59 06:59 Intake Total 1819.7 2818 Output Total 20640 60 Balance -245.3 878 -60 Result Diagrams: 01/06/20 04:25 01/06/20 04:25 Phys Exam - Physical Examination Constitutional: NAD HEENT: moist MMs pressure ulcer on upper lip crackles in ANTONIO Cardiovascular: RRR, gallop Gastrointestinal: soft, no distention Musculoskeletal: pulses present, edema present Neurological: moves all 4 limbs Skin: no rash Dx/Plan (1) Mixed acid base balance disorder Code(s): E87.4 - MIXED DISORDER OF ACID-BASE BALANCE Status: Acute (2) Hyperlipidemia associated with type 2 diabetes mellitus Code(s): E11.69 - TYPE 2 DIABETES MELLITUS WITH OTHER SPECIFIED COMPLICATION; E78.5 - HYPERLIPIDEMIA, UNSPECIFIED Status: Acute (3) Chronic hypercapnic respiratory failure Code(s): J96.12 - CHRONIC RESPIRATORY FAILURE WITH HYPERCAPNIA Status: Chronic (4) Diabetes mellitus type 2, uncontrolled Code(s): E11.65 - TYPE 2 DIABETES MELLITUS WITH HYPERGLYCEMIA Status: Chronic (5) Hypertension Code(s): I10 - ESSENTIAL (PRIMARY) HYPERTENSION Status: Chronic (6) Hypothyroidism Code(s): E03.9 - HYPOTHYROIDISM, UNSPECIFIED Status: Chronic Qualifiers: Hypothyroidism type: unspecified Qualified Code(s): E03.9 - Hypothyroidism , unspecified - Plan Plan: Acute hypoxic respiratory failure 2/2 acute HFrEF exacerbation - intubated, sedation protocol on precedex - Pulmonology consulted, appreciate recs - Cardiology consulted. Appreciate recs. Added hydralazine TID and isosorbide dinitrate BID - Dobutamine gtt - Strict I/O. consider increasing diuresis today - Tube feeds, sugar free Mixed acid base disturbance - improved, continue to monitor Hypokalemia - monitor and continue electrolyte replacement. - magnesium wnl DERICK, resolved - Stable. HLD -Continue statin HTN -Continue home medications Hypothyroid -continue home medications DM2 - Continue home medications. - Glargine 50 units in AM, 25 units in PM - Humalog 15 units TID-WM - mod SSI RIMA - Patient needs CPAP at home. Bladder cancer, s/p resection Code: Full Lines/Drains: OG, ET, PIV, Midline, Rodrigez IVF: SL. ppx: lovenox, protonix dispo: not favorable to wean vent today, attempt to remove more fluid. guarded prognosis Addendum - Attending - Attending Attestation Date/Time: 01/06/20 1211 I personally evaluated the patient and discussed the management with Dr. Mak. I agree with the History, Examination, Assessment and Plan documented above with any addition or exceptions noted below. Patient critical but stable. Lung XR worse today, seems to be a little volume overloaded. Will discuss with Cards and Pulm about increasing diuresis. Discuss progress with family as there is some concern she may be headed for trach.
--- NOTE | 2020-01-06 07:52 | RAD ---
EXAM: CHEST ONE VIEW HISTORY: Pneumonia COMPARISON: 01/05/2020 FINDINGS: Endotracheal tube and nasogastric tube remain unchanged in position. Multilead left subclavian AICD d evice remains in place. Cardiac silhouette is enlarged. There is mild pulmonary vascular congestion. Pleural and parenchymal opacities again seen at the left lung base which may represent le ft pleural effusion and volume loss. However, there is also increased patchy and interstitial opacities in the left midlung zone which could be related to pneumonia. There is also obscuration rig ht cardiac border with increased opacity at the medial right lung base which could be related to volume loss versus infiltrate. No other interval change. IMPRESSION: 1. Cardiomegaly and mild pulmonary vascular congestion. 2. Interstitial and patchy airspace opacities within each lung base and greater on the left as well a s interstitial and patchy parenchymal opacity in the left midlung zone. Findings could be related to multifocal pneumonia with small left pleural effusion. Continued follow-up to complete resolution is recommended.
[2020-01-06] MEDS: hydrALAZINE 25 MG TAB PO SCH ×3 (08:48→21:11)
[2020-01-06] MEDS: Zinc Sulfate 220 MG CAP PO SCH (08:49)
[2020-01-06] MEDS: Magnesium Oxide 400 MG TAB PO SCH (08:49)
[2020-01-06] MEDS: Ascorbic Acid 500 mg Chewable Tablet PO SCH (08:49)
[2020-01-06] MEDS: Aspirin 81 mg Enteric Coated Tablet PO SCH (08:49)
[2020-01-06] MEDS: Senokot S 8.6-50 MG TAB PO SCH ×2 (08:49→21:11)
[2020-01-06] MEDS: Fish Oil 1,000 MG CAP PO SCH (08:49)
[2020-01-06] MEDS: Calcium Carbonate 500 MG TAB PO SCH (08:49)
[2020-01-06] MEDS: Potassium Chloride 20 MEQ TAB PO SCH (08:50)
[2020-01-06] MEDS: Bisacodyl 5 MG TAB PO SCH ×3 (08:50→17:30)
[2020-01-06] MEDS: Ezetimibe 10 MG TAB PO SCH (08:50)
[2020-01-06] MEDS: Furosemide 40 MG/4 ML VIAL SLOW IVP SCH (08:51)
[2020-01-06] MEDS: Polyethylene Glycol 3350 17 GM Packet PER TUBE SCH (08:51)
[2020-01-06] MEDS: Enoxaparin Sodium 30 MG/0.3 ML SYRINGE SC SCH (08:51)
[2020-01-06] MEDS: Pantoprazole 40 MG GRANULES PACKET PER TUBE SCH (08:51)
[2020-01-06] MEDS: acetaZOLAMIDE Sodium 500 mg Vial IVP SCH ×3 (08:51→21:12)
[2020-01-06] MEDS: Carvedilol 25 MG TAB PO SCH ×2 (08:52→21:11)
[2020-01-06] MEDS: HumaLOG 300 UNITS/3 ML VIAL SC SCH ×3 (08:53→17:38)
[2020-01-06] MEDS: Artificial Tear Sol 15 ML BOT EA EYE SCH (08:58)
[2020-01-06] MEDS: Sterile Water 10 ML VIAL IVP SCH ×3 (08:59→21:12)
[2020-01-06] MEDS: Multivits W-Minerals Liquid 15 ML LIQ PER TUBE SCH (09:01)
[2020-01-06] MEDS: Insulin Glargine 50 UNITS in Pre-Filled Syringe 1 EACH SC SCH (09:02)
[2020-01-06] MEDS: Isosorbide Dinitrate 20 MG TAB PO SCH ×2 (09:05→21:12)
[2020-01-06] MEDS: Sotalol HCl 80 MG TAB PO SCH ×2 (09:05→21:11)
--- NOTE | 2020-01-06 09:08 | PRG ---
DATE OF SERVICE: 01/06/2020 35 minutes of critical care time. SUBJECTIVE: The patient remains intubated on mechanical ventilation. She is on Precedex, but I cannot get her to wake up very well. OBJECTIVE: VITAL SIGNS: Temperature 99.2, pulse 80, blood pressure 159/82, O2 saturation 100%. She is currently on dobutamine at 5 mcg/kg/minute and the Precedex drip was 0.7 mcg/kg/hour. Her 24 intake was 2818, output 1940. Weight listed 232, but that is probably not right based on previous weights. HEENT: Remarkable for some pressure necrosis along the upper lip. NECK: No adenopathy or JVD. LUNGS: Coarse breath sounds bilaterally. CARDIOVASCULAR: S1 and S2. Regular. ABDOMEN: Soft and nontender to palpation. EXTREMITIES: No clubbing or cyanosis. She is edematous throughout. LABORATORY DATA: White blood cell count 8.8, hematocrit 34.6, and platelet count 149 with pH 7.43, pCO2 of 40, pO2 of 91 on SIMV rate of 8, tidal volume 450, PEEP of 5, pressure support 20, and FiO2 of 40%. Sodium 141, potassium 3.2, chloride 103, CO2 of 30, BUN 23, creatinine 0.8, glucose 162. Chest x-ray shows a little bit of clearing compared to yesterday. ASSESSMENT: 1. Biventricular heart failure/systolic heart failure. 2. Respiratory failure requiring mechanical ventilation. 3. Encephalopathic. 4. Complex acid-base status. 5. Hypothyroidism. 6. History of bladder cancer. PLAN: 1. The patient is not weanable now due to her mental status and overall weakness. I have tried to decrease her ventilatory settings, but she becomes very tachypneic with low tidal volumes. 2. I feel like she is probably going to need a tracheostomy. The family wants to continue. We probably need to have a family conference at some point to see what the goal of care is. The patient's baseline status seems to be poor and likely the recovery seems to be low at this point. We will follow. Job ID: [id number]
[2020-01-06] MEDS: Levothyroxine 150 MCG TAB PO SCH (09:47)
[2020-01-06] MEDS ORDERED: Furosemide 40 MG/4 ML VIAL SLOW IVP SCH (16:00)
--- NOTE | 2020-01-06 16:40 | EKG ---
Test Reason : Blood Pressure : / mmHG Vent. Rate : 075 BPM Atrial Rate : 312 BPM P-R Int : 000 ms QRS Dur : 104 ms QT Int : 422 ms P-R-T Axes : 000 -79 107 degrees QTc Int : 471 ms AV sequential or dual chamber electronic pacemaker Confirmed by ANNAMARIA PORTER DO ([id number]), editor dictionary BLUE DOZIER ([id number]) on 01/06/2020 4:39:54 PM Referred By: Confirmed By:ANNAMARIA PORTER DO
[2020-01-06] MEDS: Atorvastatin Calcium 40 MG TAB PO SCH (21:11)
[2020-01-06] MEDS: Insulin Glargine 25 UNITS in Pre-Filled Syringe 1 EACH SC SCH (21:31)
[2020-01-06 22:08] LABS: Glucose 65 mg/dL (83-110)
[2020-01-07 05:02] LABS: Anion Gap 12 mmol/L (10-20); BUN (Urea Nitrogen) 31 mg/dL (9.8-20.1); Calc. Creatinine Clearance 78 mL/min (70-130); Calcium 8.8 mg/dL (7.8-10.44); Carbon Dioxide 29 mmol/L (23-31); Chloride 104 mmol/L (98-107); Estimated GFR-MDRD 70; Glucose 121 mg/dL (83-110); Potassium 3.3 mmol/L (3.5-5.1); Sodium 142 mmol/L (136-145)
[2020-01-07 05:48] LABS: #Eosinphils 0.1 thou/uL (0.0-0.7); #Lymphocytes 1.5 thou/uL (1.20-3.40); #Monocytes 1.1 thou/uL (0.11-0.59); %Basophils 0.2 % (0.0-1.0); %Eosinophils 1.1 % (0.0-10.0); %Lymphocytes 17.4 % (21.0-51.0); %Monocytes 12.1 % (0.0-10.0); %Neutrophils 69.2 % (42.0-75.0); Hemoglobin 10.8 g/dL (12.0-16.0); Mean Corpuscular HGB CONC 33.6 g/dL (32.0-36.0); Mean Corpuscular Hemoglobin 36.2 pg (27.0-31.0); Platelet Count 175 thou/uL (130-400); RBC Distribution Width 18.5 % (11.5-14.5); Red Blood Cell (RBC) Count 2.98 mill/uL (4.20-5.40); White Blood Cell (WBC) Count 8.7 thou/uL (4.8-10.8)
[2020-01-07] MEDS: Levothyroxine 150 MCG TAB PO SCH (06:08)
[2020-01-07 07:00] LABS: Actual Bicarbonate (HCO3a) 28.2 mEq/L (22-28); Base Excess (BEa) 3.5 mEq/L (-2.0 to +3.0); CO2 Tension 43.5 mmHg (35.0-45.0); Calcium, Ionized 1.22 mmol/L (1.12-1.30); Carboxyhemoglobin (COHb) 1.3 gm% (0.0-3.0); Hemoglobin (Hb) 11.2 g/dL (12.0-16.0); O2 Tension (PaO2), arterial 103.7 mmHg (> 60.0); Potassium - ABG Lab 3.15 mmol/L (3.70-5.30); pH, Arterial 7.43 (7.35-7.45)
--- NOTE | 2020-01-07 07:04 | PDOC.FM ---
- Subjective Subjective: pt resting in bed, responsive to verbal stimuli. intubated and ventilated with spontaneous breaths - Objective Vital Signs & Weight: Vital Signs (12 hours) Temp Pulse Resp BP Pulse Ox 01/07/20 06:00 18 01/07/20 04:00 99.1 F 30 H 01/07/20 03:30 72 01/07/20 02:00 24 H 01/07/20 00:00 99.5 F 21 H 01/06/20 22:29 80 109/55 L 01/06/20 22:00 18 01/06/20 21:11 80 151/73 H 01/06/20 20:00 100.1 F H 25 H 100 01/06/20 19:47 72 Weight Admit Weight 103.9 kg Weight 102.7 kg Most Recent Monitor Data Heart Rate from ECG 77 NIBP 144/65 NIBP BP-Mean 91 Respiration from ECG 19 SpO2 100 I&O: 01/06/20 01/07/20 01/08/20 06:59 06:59 06:59 Intake Total 2818 2175 Output Total 1940 2153 Balance 878 22 Result Diagrams: 01/07/20 05:35 01/07/20 03:50 Phys Exam - Physical Examination Constitutional: NAD HEENT: moist MMs upper lip edema, erythema improved, non-draining Neck: no JVD crackles in ANTONIO Cardiovascular: no significant murmur Gastrointestinal: no distention Musculoskeletal: edema present Neurological: moves all 4 limbs Psychiatric: normal affect Skin: no rash Dx/Plan (1) Mixed acid base balance disorder Code(s): E87.4 - MIXED DISORDER OF ACID-BASE BALANCE Status: Acute (2) Hyperlipidemia associated with type 2 diabetes mellitus Code(s): E11.69 - TYPE 2 DIABETES MELLITUS WITH OTHER SPECIFIED COMPLICATION; E78.5 - HYPERLIPIDEMIA, UNSPECIFIED Status: Acute (3) Chronic hypercapnic respiratory failure Code(s): J96.12 - CHRONIC RESPIRATORY FAILURE WITH HYPERCAPNIA Status: Chronic (4) Diabetes mellitus type 2, uncontrolled Code(s): E11.65 - TYPE 2 DIABETES MELLITUS WITH HYPERGLYCEMIA Status: Chronic (5) Hypertension Code(s): I10 - ESSENTIAL (PRIMARY) HYPERTENSION Status: Chronic (6) Hypothyroidism Code(s): E03.9 - HYPOTHYROIDISM, UNSPECIFIED Status: Chronic Qualifiers: Hypothyroidism type: unspecified Qualified Code(s): E03.9 - Hypothyroidism , unspecified - Plan Plan: Acute hypoxic respiratory failure 2/2 acute HFrEF exacerbation - intubated, sedation protocol on precedex - Pulmonology consulted, appreciate recs - Cardiology consulted. Appreciate recs. Added hydralazine TID and isosorbide dinitrate BID - Dobutamine gtt - Strict I/O. BID lasix, monitor bicarb, diamox on - Tube feeds, sugar free ventilator associated condition - fever to 100.7, bcx/ucx/bronch pending - merem Mixed acid base disturbance - improved, continue to monitor - diamox Hypokalemia - monitor and continue electrolyte replacement. - magnesium wnl EDRICK, resolved - Stable. HLD -Continue statin HTN -Continue home medications Hypothyroid -continue home medications DM2 - lows last night, decrease AM lantus - Glargine 46 units in AM, 25 units in PM - Humalog 15 units TID-WM - mod SSI RIMA - Patient needs CPAP at home. Bladder cancer, s/p resection Code: Full Lines/Drains: OG, ET, PIV, Midline, Rodrigez IVF: SL. ppx: lovenox, protonix dispo: continue respiratory support, attempt goals of care talk with family. guarded prognosis Addendum - Attending - Attending Attestation Date/Time: 01/07/20 4263 I personally evaluated the patient and discussed the management with Dr. Mak. I agree with the History, Examination, Assessment and Plan documented above with any addition or exceptions noted below. Patient overall stable, but continues to be critically ill. Bronch this morning appeared to show purulent discharge, now on abx. Volume status overall ok. Family meeting to discuss goals of care today.
[2020-01-07 07:21] LABS: ALV-art Gradient 127.125 (0-20); Puncture Site RRAD
--- NOTE | 2020-01-07 07:52 | RAD ---
EXAM: Portable chest PROVIDED CLINICAL HISTORY: Pneumonia COMPARISON: 01/06/2020 FINDINGS: Significant interval change with respect to the prior examination is not apparent. IMPRESSION: As above.
[2020-01-07] MEDS ORDERED: Midazolam HCl 2 mg/2 ml Vial ONE (08:09)
[2020-01-07] MEDS ORDERED: Midazolam HCl 2 mg/2 ml Vial SLOW IVP SCH (08:15)
--- NOTE | 2020-01-07 08:33 | PRG ---
DATE OF SERVICE: 01/07/2020 This is a 35 minutes critical care time. SUBJECTIVE: Krista actually looks a little better today. I got her to interact with me fairly well. She is only on a little Precedex. Most notable thing today is she has some profound secretions coming from her endotracheal tube and she has developed a low-grade fever of 100.1. OBJECTIVE: VITAL SIGNS: Otherwise on exam; her pulse is 74, blood pressure 153/74, and O2 saturation 100%. She is on a Dobutrex drip at 5 mcg/kg/minute. Her intake for the last 24 hours is 2175, her output was 2153. Her weight is measured at 226 pounds today, but has been very variable on her scale. HEENT: Unremarkable except for the purulent secretions coming from the endotracheal tube, which almost have the appearance of tube feeds. NECK: No adenopathy or JVD. LUNGS: Coarse breath sounds. CARDIAC: S1 and S2. Regular. ABDOMEN: Soft. EXTREMITIES: No edema. LABORATORY DATA: Sodium 142, potassium 3.3, chloride 104, CO2 of 29, BUN 31, creatinine 0.9, and glucose 121. A pH of 7.43, pCO2 of 43, and pO2 of 103. White blood cell count 8.7, hematocrit 32.1, and platelet count 175. Her chest x-ray looks clear than yesterday. ASSESSMENT: 1. Acute on chronic systolic heart failure. 2. Respiratory failure requiring mechanical ventilation. 3. Possible development of nosocomial pneumonia. 4. Encephalopathy, which is improved. 5. Complex acid-base status, which appears to be normalizing on Diamox and the Lasix. 6. Hypothyroidism. 7. History of bladder cancer. PLAN: 1. Going to perform bronchoscopy and sent off a BAL to determine whether or not she has pneumonia. I will start meropenem as she has a number of allergies to various antibiotics. 2. I will try to turn down her pressure support some today. 3. We will decrease the Dobutrex to 2.5 mcg/kg per minute. If she tolerates that today, then consider stopping that tomorrow. 4. Up in a chair as tolerated. 5. Physical therapy. 6. Continue the Diamox and Lasix. 7. I spoke with one of her daughters yesterday and told her my concern was that the patient's severe neuromuscular weakness has been determined so far to weaning. That conversation yesterday was held because the patient was making absolutely no improvement. However, today she actually looks a little bit better, so maybe there is some hope. In any event, the family is supposed to come up and visit tomorrow. I told them if she is not better by mid week next week, we need to consider tracheostomy or possibly transition to Palliative Care. Job ID: [id number]
--- NOTE | 2020-01-07 08:41 | OP ---
DATE OF PROCEDURE: 01/07/2020 PROCEDURE PERFORMED: Bronchoscopy. PREOPERATIVE DIAGNOSES: Purulent secretions coming from endotracheal tube, low-grade fever, and rule out nosocomial pneumonia. POSTOPERATIVE DIAGNOSES: Aspiration of tube feeds and bronchoalveolar hemorrhage. ANESTHESIA: Versed 4 mg IV for conscious sedation. DESCRIPTION OF PROCEDURE: The procedure was done on the patient's bedside. She was placed on 100% oxygen. An adapter was placed in the end of her endotracheal tube. A 2.4 Ambu bronchoscope was used to survey the patient's airways. There was tanner material in her ET tube, which I think probably is old tube feeds that she has aspirated. She actually had minimal secretions in her airways bilaterally. I wedged the scope in the right middle lobe and obtained clear fluid. I wedged the scope then in her left upper lobe and obtained bloody secretions. This material was sent to the lab for microbiology studies. There was no evidence of endobronchial obstruction. She tolerated the procedure well. Job ID: [id number]
[2020-01-07] MEDS: Enoxaparin Sodium 30 MG/0.3 ML SYRINGE SC SCH (09:05)
[2020-01-07] MEDS: Potassium Chloride 20 MEQ TAB PO SCH (09:06)
[2020-01-07] MEDS: Ezetimibe 10 MG TAB PO SCH (09:06)
[2020-01-07] MEDS: Polyethylene Glycol 3350 17 GM Packet PER TUBE SCH (09:06)
[2020-01-07] MEDS: Zinc Sulfate 220 MG CAP PO SCH (09:07)
[2020-01-07] MEDS: Aspirin 81 mg Enteric Coated Tablet PO SCH (09:07)
[2020-01-07] MEDS: hydrALAZINE 25 MG TAB PO SCH ×3 (09:07→20:19)
[2020-01-07] MEDS: Bisacodyl 5 MG TAB PO SCH ×3 (09:08→17:16)
[2020-01-07] MEDS: Fish Oil 1,000 MG CAP PO SCH (09:08)
[2020-01-07] MEDS: Magnesium Oxide 400 MG TAB PO SCH (09:08)
[2020-01-07] MEDS: Calcium Carbonate 500 MG TAB PO SCH (09:08)
[2020-01-07] MEDS: Ascorbic Acid 500 mg Chewable Tablet PO SCH (09:08)
[2020-01-07] MEDS: Senokot S 8.6-50 MG TAB PO SCH ×2 (09:08→20:20)
[2020-01-07] MEDS: acetaZOLAMIDE Sodium 500 mg Vial IVP SCH ×3 (09:09→20:21)
[2020-01-07] MEDS: Pantoprazole 40 MG GRANULES PACKET PER TUBE SCH (09:09)
[2020-01-07] MEDS: Furosemide 40 MG/4 ML VIAL SLOW IVP SCH (09:09)
[2020-01-07] MEDS: Carvedilol 25 MG TAB PO SCH ×2 (09:10→20:19)
[2020-01-07] MEDS: Multivits W-Minerals Liquid 15 ML LIQ PER TUBE SCH (09:12)
[2020-01-07] MEDS: Sotalol HCl 80 MG TAB PO SCH ×2 (09:20→20:20)
[2020-01-07] MEDS: Artificial Tear Sol 15 ML BOT EA EYE SCH (09:21)
[2020-01-07] MEDS: Sterile Water 10 ML VIAL IVP SCH ×3 (09:21→20:21)
[2020-01-07] MEDS: Isosorbide Dinitrate 20 MG TAB PO SCH ×2 (09:21→20:19)
[2020-01-07] MEDS: Insulin Glargine 46 UNITS in Pre-Filled Syringe 1 EACH SC SCH (09:49)
[2020-01-07] MEDS: HumaLOG 300 UNITS/3 ML VIAL SC SCH ×3 (12:18→18:47)
--- NOTE | 2020-01-07 13:27 | PDOC.PALCO ---
Palliative Care Consult - Consult Details Requesting Physician: Dr Mak Reason for Consult: goals of care, assistance with communication prognosis/ disease, family support Family Members Present: Two of patient daughters and son Luis aDniel. - Pertinent HPI 84 year old female who had progressing shortness of breath over the past several weeks. Lives in an independent setting with her son Luis Daniel. Reports her symptoms of lower extremity edema and shortness of breath became worse and presented to the emergency room. Evaluation identified acute exacerbation of heart failure, respiratory failure and she was admitted for further medical management to [facility]. Respiratory compromise led to intubation and transfer to CCU. Euvolmic state stable currently, however unable to be weened from vent. - Pertinent PMH Hx of bladder cancer, Atrial tachycardia, HDL, HTN, Hypothyroid, DM2, Heart Failure - Social History Smoking Status: Never smoker Smoking: no tobacco exposure Alcohol Use: none Drug Use History: none Living Situation: independent (Lives with her youngest child, son Luis Daniel) - Medications MAR Reviewed: Yes - Allergies Allergies/Adverse Reactions: Allergies Allergy/AdvReac Type Severity Reaction Status Date / Time Penicillins Allergy Severe Hives Verified 11/14/19 12:54 verapamil HCl [From Calan] Allergy Severe Swollen Verified 11/14/19 12:54 Lips codeine Allergy Intermediate Rash Verified 11/14/19 12:54 tramadol Allergy Intermediate Rash Verified 11/14/19 12:54 ROYAL Inhibitors Allergy COUGH Verified 11/14/19 12:54 ciprofloxacin Allergy Nausea Verified 11/14/19 12:54 morphine Allergy Nausea Verified 11/14/19 12:54 nitrofurantoin Allergy Nausea Verified 11/14/19 12:54 [From Macrobid] - Subjective Mechanical ventilation with mild sedation. OG for nutritional support - ROS Non Response: due to endotracheal tube, due to mental status - Objective Vital Signs: Vital Signs - Most Recent Temp Pulse Resp BP Pulse Ox 100.4 F H 80 36 H 152/73 H 99 01/07/20 12:00 01/07/20 10:38 01/07/20 12:00 01/07/20 09:50 01/07/20 08:00 Palliative Performance Scale: 20 - Physical Exam Constitutional: encephalitic, ill appearing HEENT: moist MMs Respiratory: unlabored breathing, diminished lung sound Deviation from normal: mechanical ventilation, adventicious upper Cardiovascular: RRR Gastrointestinal: non-tender, positive bowel sounds Genitourinary: carreon catheter Musculoskeletal: no clubbing, pulses present Deviation from normal: sedated Skin: cap refill <2 seconds, no rash Deviation from normal: sedated - Problem List (1) Physical deconditioning Code(s): R53.81 - OTHER MALAISE Current Visit: Yes Status: Acute (2) Palliative care encounter Code(s): Z51.5 - ENCOUNTER FOR PALLIATIVE CARE Current Visit: Yes Status: Acute (3) (HFpEF) heart failure with preserved ejection fraction Code(s): I50.30 - UNSPECIFIED DIASTOLIC (CONGESTIVE) HEART FAILURE Current Visit: Yes Status: Acute (4) Hypercapnic respiratory failure Code(s): J96.92 - RESPIRATORY FAILURE, UNSPECIFIED WITH HYPERCAPNIA Current Visit: Yes Status: Acute (5) Diabetes mellitus type 2 in obese Code(s): E11.9 - TYPE 2 DIABETES MELLITUS WITHOUT COMPLICATIONS; E66.9 - OBESITY , UNSPECIFIED Current Visit: No Status: Chronic - Plan/Recommendations Plan: Family to bedside. Family meeting with Dr Mak, two of patient seven daughters and her only son Luis Daniel. Daughter SILVIA Allison. Discussed "what they understood their moms condition is currently". Dr Mak provided an overview of her current health status, then discussed outcomes with "Hope for the best and plan for the worst". Discussed if not successful in weaning off vent a decision would need to be made for compassionate extubation verses trach. Possible scenarios were discussed with family. Spiritual care consult, Memo to bedside to pray with patient and family, offering emotional and spiritual support. Please also refer to Wallace Gutierrez RNemergency medical technician/driver notes. Family has requested 3 family members only to come see Ms Mayfield on Friday secondary to poor prognosis. Palliative Care will continue to support physicians as needed. [75] minutes spent on this encounter with >50% of the time in counseling and coordination of care. Thank you for this very appropriate consult.
[2020-01-07] MEDS: Meropenem 2 GM in Sodium Chloride 0.9% 100 ML IVPB SCH ×2 (13:50→21:08)
[2020-01-07] MEDS ORDERED: Acetaminophen 650 MG Suppository PR PRN (15:39)
[2020-01-07] MEDS: DOBUTamine 500 mg/250 ml 250 ML IVPB SCH (19:00)
[2020-01-07] MEDS: Atorvastatin Calcium 40 MG TAB PO SCH (20:20)
[2020-01-07] MEDS: Insulin Glargine 25 UNITS in Pre-Filled Syringe 1 EACH SC SCH (21:09)
[2020-01-08] MEDS: Acetaminophen 325 MG TAB PO PRN (00:20)
[2020-01-08 05:01] LABS: Anion Gap 13 mmol/L (10-20); BUN (Urea Nitrogen) 31 mg/dL (9.8-20.1); Calc. Creatinine Clearance 65 mL/min (70-130); Calcium 8.9 mg/dL (7.8-10.44); Carbon Dioxide 29 mmol/L (23-31); Chloride 104 mmol/L (98-107); Estimated GFR-MDRD 58; Glucose 151 mg/dL (83-110); Potassium 3.6 mmol/L (3.5-5.1); Sodium 142 mmol/L (136-145)
[2020-01-08 05:37] LABS: Band 43 % (5-11); Lymphocytes 11 % (21-51); MDiff Complete? YES; Mean Corpuscular HGB CONC 31.5 g/dL (32.0-36.0); Mean Corpuscular Hemoglobin 31.3 pg (27.0-31.0); Mean Corpuscular Volume 99.1 fL (78.0-98.0); Mean Platelet Volume 10.6 fL (7.4-10.4); Monocytes 6 % (0-10); Neutrophil 40 % (42-75); Platelet Count 146 thou/uL (130-400); Platelet Morphology Comment Appears Adequate; RBC Distribution Width 13.7 % (11.5-14.5); White Blood Cell (WBC) Count 11.3 thou/uL (4.8-10.8)
[2020-01-08] MEDS: Levothyroxine 150 MCG TAB PO SCH (06:39)
[2020-01-08 07:05] LABS: Actual Bicarbonate (HCO3a) 26.8 mEq/L (22-28); Base Excess (BEa) 1.6 mEq/L (-2.0 to +3.0); CO2 Tension 44.8 mmHg (35.0-45.0); Carboxyhemoglobin (COHb) 1.1 gm% (0.0-3.0); Hemoglobin (Hb) 10.6 g/dL (12.0-16.0); O2 Tension (PaO2), arterial 105.5 mmHg (> 60.0); Potassium - ABG Lab 3.44 mmol/L (3.70-5.30)
--- NOTE | 2020-01-08 07:12 | PDOC.FM ---
- Subjective Subjective: pt ventilated w/ sedation off. spontaneous breaths, responsive to verbal stimuli , follows commands. does not indicate pain. - Objective Vital Signs & Weight: Vital Signs (12 hours) Temp Pulse Resp BP Pulse Ox 01/08/20 06:00 26 H 01/08/20 04:00 98.4 F 31 H 01/08/20 02:03 80 01/08/20 02:00 28 H 01/08/20 00:00 101.9 F H 33 H 01/07/20 23:27 72 125/54 L 01/07/20 22:00 29 H 01/07/20 21:00 100.5 F H 01/07/20 20:20 72 134/67 01/07/20 20:19 72 134/67 01/07/20 20:00 27 H 97 Weight Admit Weight 103.9 kg Weight 102.7 kg Most Recent Monitor Data Heart Rate from ECG 77 NIBP 138/68 NIBP BP-Mean 91 Respiration from ECG 14 SpO2 100 I&O: 01/07/20 01/08/20 01/09/20 06:59 06:59 06:59 Intake Total 2175 2071.2 Output Total 2153 1703 Balance 22 368.2 Result Diagrams: 01/08/20 04:20 01/08/20 04:20 Phys Exam - Physical Examination Constitutional: NAD HEENT: moist MMs Neck: supple Respiratory: no wheezing, no rhonchi transmitted UA sounds, Cardiovascular: RRR Gastrointestinal: soft, no distention Musculoskeletal: pulses present Neurological: moves all 4 limbs Skin: no rash Dx/Plan (1) Mixed acid base balance disorder Code(s): E87.4 - MIXED DISORDER OF ACID-BASE BALANCE Status: Acute (2) Hyperlipidemia associated with type 2 diabetes mellitus Code(s): E11.69 - TYPE 2 DIABETES MELLITUS WITH OTHER SPECIFIED COMPLICATION; E78.5 - HYPERLIPIDEMIA, UNSPECIFIED Status: Acute (3) Chronic hypercapnic respiratory failure Code(s): J96.12 - CHRONIC RESPIRATORY FAILURE WITH HYPERCAPNIA Status: Chronic (4) Diabetes mellitus type 2, uncontrolled Code(s): E11.65 - TYPE 2 DIABETES MELLITUS WITH HYPERGLYCEMIA Status: Chronic (5) Hypertension Code(s): I10 - ESSENTIAL (PRIMARY) HYPERTENSION Status: Chronic (6) Hypothyroidism Code(s): E03.9 - HYPOTHYROIDISM, UNSPECIFIED Status: Chronic Qualifiers: Hypothyroidism type: unspecified Qualified Code(s): E03.9 - Hypothyroidism , unspecified - Plan Plan: Acute hypoxic respiratory failure 2/2 acute HFrEF exacerbation - intubated, sedation protocol on precedex - Pulmonology consulted, appreciate recs - Cardiology consulted. Appreciate recs. Added hydralazine TID and isosorbide dinitrate BID - decreased Dobutamine gtt - Strict I/O. lasix, monitor bicarb, diamox on - Tube feeds, sugar free ventilator associated condition - fever to 100.7, bcx/ucx/bronch pending - procal elevated, trend - merem Mixed acid base disturbance - improved, continue to monitor - diamox Hypokalemia - monitor and continue electrolyte replacement. - magnesium wnl DERICK, resolved - Stable. HLD -Continue statin HTN -Continue home medications Hypothyroid -continue home medications DM2 - Glargine 46 units in AM, 25 units in PM - Humalog 15 units TID-WM - mod SSI RIMA - aware Bladder cancer, s/p resection Code: Full Lines/Drains: OG, ET, PIV, Midline, Rodrigez IVF: SL. ppx: lovenox, protonix dispo: continue respiratory support, guarded prognosis Addendum - Attending - Attending Attestation Date/Time: 01/08/20 1037 I personally evaluated the patient and discussed the management with Dr. Mak. I agree with the History, Examination, Assessment and Plan documented above with any addition or exceptions noted below. Patient spiking fevers, BAL growing pseudomonas. On Meropenem. Continue that and await final cx. Poor prognosis. Awaiting family decision for withdrawal of care versus pursuing trach/PEG. Dobutamine decreased as it does not appear that volume overload is her primary issue.
[2020-01-08 07:27] LABS: Puncture Site RRAD
[2020-01-08] MEDS: Meropenem 2 GM in Sodium Chloride 0.9% 100 ML IVPB SCH ×3 (08:01→21:49)
[2020-01-08] MEDS: Senokot S 8.6-50 MG TAB PO SCH ×2 (08:03→20:34)
[2020-01-08] MEDS: Fish Oil 1,000 MG CAP PO SCH (08:03)
[2020-01-08] MEDS: Ezetimibe 10 MG TAB PO SCH (08:03)
[2020-01-08] MEDS: Bisacodyl 5 MG TAB PO SCH ×3 (08:03→15:37)
[2020-01-08] MEDS: Ascorbic Acid 500 mg Chewable Tablet PO SCH (08:03)
[2020-01-08] MEDS: Carvedilol 25 MG TAB PO SCH ×2 (08:03→20:34)
[2020-01-08] MEDS: Furosemide 40 MG/4 ML VIAL SLOW IVP SCH (08:03)
[2020-01-08] MEDS: Aspirin 81 mg Enteric Coated Tablet PO SCH (08:03)
[2020-01-08] MEDS: Polyethylene Glycol 3350 17 GM Packet PER TUBE SCH (08:04)
[2020-01-08] MEDS: acetaZOLAMIDE Sodium 500 mg Vial IVP SCH ×3 (08:04→20:34)
[2020-01-08] MEDS: Calcium Carbonate 500 MG TAB PO SCH (08:04)
[2020-01-08] MEDS: Pantoprazole 40 MG GRANULES PACKET PER TUBE SCH (08:04)
[2020-01-08] MEDS: Enoxaparin Sodium 40 MG/0.4 ML SYRINGE SC SCH (08:04)
[2020-01-08] MEDS: hydrALAZINE 25 MG TAB PO SCH ×3 (08:04→20:33)
[2020-01-08] MEDS: Potassium Chloride 20 MEQ TAB PO SCH (08:05)
[2020-01-08] MEDS: HumaLOG 300 UNITS/3 ML VIAL SC SCH ×3 (08:05→17:42)
[2020-01-08] MEDS: Magnesium Oxide 400 MG TAB PO SCH (08:05)
[2020-01-08] MEDS: Multivits W-Minerals Liquid 15 ML LIQ PER TUBE SCH (08:05)
[2020-01-08] MEDS: Insulin Glargine 46 UNITS in Pre-Filled Syringe 1 EACH SC SCH (08:05)
[2020-01-08] MEDS: Artificial Tear Sol 15 ML BOT EA EYE SCH (08:06)
[2020-01-08] MEDS: Isosorbide Dinitrate 20 MG TAB PO SCH ×2 (08:12→20:34)
[2020-01-08] MEDS: Sotalol HCl 80 MG TAB PO SCH ×2 (08:12→20:33)
[2020-01-08] MEDS: Sterile Water 10 ML VIAL IVP SCH ×3 (08:13→20:34)
[2020-01-08] MEDS: Zinc Sulfate 220 MG CAP PO SCH (08:14)
--- NOTE | 2020-01-08 08:22 | RAD ---
EXAM: CHEST ONE VIEW HISTORY: Pneumonia COMPARISON: 01/07/2020 FINDINGS: Multilead left subclavian AICD device, nasogastric tube, endotracheal tube remain unchanged in positi on. Cardiac silhouette remains enlarged. Pulmonary vascular congestion is present. Pleural and parenchymal opacities left lung base are again noted with mild patchy and interstitial opacities with in the perihilar regions bilaterally. Findings have not significantly changed compared to the prior exam. No other interval change. IMPRESSION: 1. Cardiomegaly and pulmonary vascular congestion. 2. Interstitial and patchy parenchymal airspace opacities bilaterally which could be related to asymm etric pulmonary edema or pneumonia. Atypical pneumonia is a possibility. Follow-up to resolution is recommended. 3. Lines and tubes stable in position.
--- NOTE | 2020-01-08 10:58 | PRG ---
DATE OF SERVICE: 01/08/2020 PRESENT ILLNESS: Ms. Mayfield is a medically complex 84-year-old female with multiple medical problems listed and reviewed in the H and P. Most dominant appears to be a upncdrvy-mu-pztvej cardiomyopathy with ejection fraction of approximately 35%. She has now been in the hospital for 10 days with respiratory failure and continues to require ventilatory support. She is mildly sedated. She is receiving feedings. Unfortunately, neurologic status has limited attempts at weaning and she has become quite tachypneic and noted to have low tidal volumes when the rate is reduced. Conversations have been initiated with the family by the primary care team as well as palliative care consult. At this point, the family has not been willing to consider comfort measures, but we have not yet gotten to the point of tracheostomy and long-term care placement. PHYSICAL EXAMINATION: VITAL SIGNS: Blood pressure 137/66, heart rate 73, respiratory rate 18, saturation 100% on current ventilator settings, which have been reviewed and adjusted. She is sedated with Precedex. Her recorded weights have very dramatically throughout the hospital stay and I do not think are accurate. She is currently also receiving dobutamine. GENERAL: She is an elderly female, intubated. I cannot elicit response to verbal stimuli. She has no icterus. NECK: Enlarged. There is no JVD. LUNGS: Show coarse rhonchi. HEART: Regular rate and rhythm with a low-grade murmur. There is no gallop. ABDOMEN: Obese and soft. There is no guarding or rebound. EXTREMITIES: Show 1+ edema. There is no cords or tenderness. LABORATORY DATA: Current white count 11,300, hemoglobin is 11 with hematocrit of 34.7, platelet count 146,000. Blood gas includes pH of 7.4, CO2 of 45, PO2 of 105, and bicarbonate of 28 obtained on a rate of 8, tidal volume 450, 50% oxygen. Electrolytes include sodium 142, potassium 3.6, chloride 104, CO2 is 29, BUN 31, creatinine 1.1. Bronchoalveolar lavage fluid presumptively growing Pseudomonas. X-ray shows lines and tubes in appropriate position. Haziness is noted in the mid lung zones consistent with small mix of infiltrate and effusion. IMPRESSION: 1. Decompensated congestive heart failure with ejection fraction of 35%. She has continued to receive support with dobutamine. I cannot tell much from the I's and O's regarding volume status, although she is not terribly volume overloaded by assessment. We have not yet been able to manage significant weaning due to combination of factors including poor neurologic status. 2. Vent dependency. 3. Altered mentation. PLAN: We will continue ventilator support, although I have reduced the pressure support. The primary team and family remain in conversation regarding long-term strategy of either comfort care versus trach and long-term care facility. I have rendered critical care 25 minutes today in direct patient assessment. Job ID: [id number]
[2020-01-08] MEDS: Atorvastatin Calcium 40 MG TAB PO SCH (20:33)
[2020-01-08] MEDS: Insulin Glargine 25 UNITS in Pre-Filled Syringe 1 EACH SC SCH (20:45)
[2020-01-09] MEDS: DOBUTamine 500 mg/250 ml 250 ML IVPB SCH (04:33)
[2020-01-09 04:46] LABS: Anion Gap 11 mmol/L (10-20); BUN (Urea Nitrogen) 37 mg/dL (9.8-20.1); Calc. Creatinine Clearance 0 mL/min (70-130); Calcium 8.7 mg/dL (7.8-10.44); Carbon Dioxide 30 mmol/L (23-31); Chloride 105 mmol/L (98-107); Estimated GFR-MDRD 64; Glucose 92 mg/dL (83-110); Potassium 3.6 mmol/L (3.5-5.1); Sodium 142 mmol/L (136-145)
[2020-01-09 04:53] LABS: #Eosinphils 0.1 thou/uL (0.0-0.7); #Lymphocytes 1.9 thou/uL (1.20-3.40); #Monocytes 0.8 thou/uL (0.11-0.59); #Neutrophils 9.2 thou/uL (1.40-6.50); %Basophils 0.4 % (0.0-1.0); %Eosinophils 1.1 % (0.0-10.0); %Lymphocytes 15.6 % (21.0-51.0); %Monocytes 6.8 % (0.0-10.0); %Neutrophils 76.2 % (42.0-75.0); Hemoglobin 10.6 g/dL (12.0-16.0); Hypochromia SLIGHT = 6-15 cells (100X) (0-5/hpf); MDiff Complete? YES; Macrocytosis SLIGHT = 6-15 cells (100X) (0-5/hpf); Mean Corpuscular HGB CONC 37.5 g/dL (32.0-36.0); Mean Corpuscular Hemoglobin 43.8 pg (27.0-31.0); Platelet Count 194 thou/uL (130-400); Platelet Morphology Comment Appears Adequate; RBC Distribution Width 23.6 % (11.5-14.5); Red Blood Cell (RBC) Count 2.41 mill/uL (4.20-5.40); Target Cells SLIGHT = 2-5 cells (100X) (0-1/hpf); White Blood Cell (WBC) Count 12.1 thou/uL (4.8-10.8)
[2020-01-09] MEDS: Levothyroxine 150 MCG TAB PO SCH (05:57)
[2020-01-09] MEDS: Meropenem 2 GM in Sodium Chloride 0.9% 100 ML IVPB SCH ×3 (06:28→21:04)
--- NOTE | 2020-01-09 06:54 | PDOC.FM ---
- Subjective Subjective: pt on simv w/ few spontaneous breaths, responsive to verbal commands. - Objective Vital Signs & Weight: Vital Signs (12 hours) Temp Pulse Resp BP Pulse Ox 01/09/20 06:00 20 01/09/20 04:00 99 F 28 H 01/09/20 02:00 14 01/09/20 00:00 98.9 F 29 H 01/08/20 22:00 29 H 01/08/20 20:33 72 138/69 01/08/20 20:00 28 H 100 01/08/20 19:00 98.7 F Weight Admit Weight 103.9 kg Weight 104.2 kg Most Recent Monitor Data Heart Rate from ECG 70 NIBP 134/66 NIBP BP-Mean 88 Respiration from ECG 23 SpO2 100 I&O: 01/07/20 01/08/20 01/09/20 06:59 06:59 06:59 Intake Total 2175 2071.2 1849.9 Output Total 2153 1703 1731 Balance 22 368.2 118.9 Result Diagrams: 01/09/20 04:10 01/09/20 04:10 Phys Exam - Physical Examination Constitutional: NAD HEENT: moist MMs pressure ulcer stable on upper lip Neck: supple crackles throughout Cardiovascular: RRR yanci Gastrointestinal: soft, non-tender mildy distended Musculoskeletal: pulses present minimal edema Neurological: moves all 4 limbs Skin: no rash Dx/Plan (1) Mixed acid base balance disorder Code(s): E87.4 - MIXED DISORDER OF ACID-BASE BALANCE Status: Acute (2) Hyperlipidemia associated with type 2 diabetes mellitus Code(s): E11.69 - TYPE 2 DIABETES MELLITUS WITH OTHER SPECIFIED COMPLICATION; E78.5 - HYPERLIPIDEMIA, UNSPECIFIED Status: Acute (3) Chronic hypercapnic respiratory failure Code(s): J96.12 - CHRONIC RESPIRATORY FAILURE WITH HYPERCAPNIA Status: Chronic (4) Diabetes mellitus type 2, uncontrolled Code(s): E11.65 - TYPE 2 DIABETES MELLITUS WITH HYPERGLYCEMIA Status: Chronic (5) Hypertension Code(s): I10 - ESSENTIAL (PRIMARY) HYPERTENSION Status: Chronic (6) Hypothyroidism Code(s): E03.9 - HYPOTHYROIDISM, UNSPECIFIED Status: Chronic Qualifiers: Hypothyroidism type: unspecified Qualified Code(s): E03.9 - Hypothyroidism , unspecified - Plan Plan: Acute hypoxic respiratory failure 2/2 acute HFrEF exacerbation - intubated, sedation protocol on precedex - Pulmonology consulted, appreciate recs - Cardiology consulted. Appreciate recs. Added hydralazine TID and isosorbide dinitrate BID - decreased Dobutamine gtt - Strict I/O. lasix, monitor bicarb, diamox - Tube feeds, sugar free pseudomonas ventilator associated pneumonia - fever to 101.4, bcx/ucx wnl - procal elevated, trend - sensitive to merem Mixed acid base disturbance - improved, continue to monitor - diamox Hypokalemia - monitor and continue electrolyte replacement. - magnesium wnl DERICK, resolved - Stable. HLD -Continue statin HTN -Continue home medications Hypothyroid -continue home medications DM2 - Glargine 46 units in AM, 25 units in PM - Humalog 15 units TID-WM - mod SSI RIMA - aware Bladder cancer, s/p resection Code: Full Lines/Drains: OG, ET, PIV, Midline, Rodrigez IVF: SL. ppx: lovenox, protonix dispo: continue respiratory support, guarded prognosis Addendum - Attending - Attending Attestation Date/Time: 01/09/20 1022 I personally evaluated the patient and discussed the management with Dr. Mak. I agree with the History, Examination, Assessment and Plan documented above with any addition or exceptions noted below. Patient here originally for respiratory failure 2/2 CHF exacerbation. Her volume status has improved s/p Dobutamine and Lasix. However, she now has had worsening respiratory status 2/2 Pseudomonas pneumonia. She is on meropenem. Vent settings overall stable, though during our exam she was doing improved with SBT. Pulm on board. Family discussion again today regarding assisted plans for trach/PEG versus withdrawal of care.
[2020-01-09 07:11] LABS: Actual Bicarbonate (HCO3a) 28.7 mEq/L (22-28); Base Excess (BEa) 2.3 mEq/L (-2.0 to +3.0); Calcium, Ionized 1.24 mmol/L (1.12-1.30); Hemoglobin (Hb) 12.7 g/dL (12.0-16.0); O2 Tension (PaO2), arterial 136.8 mmHg (> 60.0); Potassium - ABG Lab 3.66 mmol/L (3.70-5.30); pH, Arterial 7.36 (7.35-7.45)
[2020-01-09 07:35] LABS: Puncture Site RRAD
[2020-01-09] MEDS: hydrALAZINE 25 MG TAB PO SCH ×3 (08:03→20:53)
[2020-01-09] MEDS: Aspirin 81 mg Enteric Coated Tablet PO SCH (08:03)
[2020-01-09] MEDS: Spironolactone 25 MG TAB PO SCH (08:04)
[2020-01-09] MEDS: Ezetimibe 10 MG TAB PO SCH (08:04)
[2020-01-09] MEDS: Sotalol HCl 80 MG TAB PO SCH ×2 (08:04→20:53)
[2020-01-09] MEDS: Isosorbide Dinitrate 20 MG TAB PO SCH ×2 (08:04→20:53)
[2020-01-09] MEDS: Ascorbic Acid 500 mg Chewable Tablet PO SCH (08:04)
[2020-01-09] MEDS: Potassium Chloride 20 MEQ TAB PO SCH (08:04)
[2020-01-09] MEDS: Calcium Carbonate 500 MG TAB PO SCH (08:04)
[2020-01-09] MEDS: Fish Oil 1,000 MG CAP PO SCH (08:04)
[2020-01-09] MEDS: Zinc Sulfate 220 MG CAP PO SCH (08:05)
[2020-01-09] MEDS: Bisacodyl 5 MG TAB PO SCH ×3 (08:05→17:15)
[2020-01-09] MEDS: Magnesium Oxide 400 MG TAB PO SCH (08:05)
[2020-01-09] MEDS: Senokot S 8.6-50 MG TAB PO SCH ×2 (08:05→20:54)
[2020-01-09] MEDS: Pantoprazole 40 MG GRANULES PACKET PER TUBE SCH (08:05)
[2020-01-09] MEDS: Artificial Tear Sol 15 ML BOT EA EYE SCH (08:07)
[2020-01-09] MEDS: Polyethylene Glycol 3350 17 GM Packet PER TUBE SCH (08:07)
[2020-01-09] MEDS: acetaZOLAMIDE Sodium 500 mg Vial IVP SCH (08:07)
[2020-01-09] MEDS: Enoxaparin Sodium 40 MG/0.4 ML SYRINGE SC SCH (08:07)
[2020-01-09] MEDS: Furosemide 40 MG/4 ML VIAL SLOW IVP SCH (08:07)
[2020-01-09] MEDS: Carvedilol 25 MG TAB PO SCH ×2 (08:07→20:53)
[2020-01-09] MEDS: Multivits W-Minerals Liquid 15 ML LIQ PER TUBE SCH (08:07)
[2020-01-09] MEDS: Insulin Glargine 46 UNITS in Pre-Filled Syringe 1 EACH SC SCH (08:08)
[2020-01-09] MEDS: Sterile Water 10 ML VIAL IVP SCH ×3 (08:08→20:54)
[2020-01-09] MEDS: HumaLOG 300 UNITS/3 ML VIAL SC SCH ×3 (08:08→17:12)
--- NOTE | 2020-01-09 08:51 | RAD ---
EXAM: CHEST ONE VIEW HISTORY: Pneumonia COMPARISON: 01/08/2020 FINDINGS: Triple lead left subclavian AICD device, endotracheal tube, and nasogastric tubes remain in place. Ca rdiac silhouette remains enlarged. There are scattered mild airspace opacities within the midlung zones and each lung base. No other interval change. IMPRESSION: Overall stable chest with scattered airspace opacities which may represent multifocal pneumonia. Becca l pneumonitis in the correct clinical scenario is a possibility. Continued follow-up to resolution is recommended.
--- NOTE | 2020-01-09 09:23 | PRG ---
DATE OF SERVICE: 01/09/2020 SUBJECTIVE: There has been no significant change in Ms. Mayfield over the past 24 hours. She is tolerating reduction in ventilator rate and I have just switched her over to a CPAP trial. It is reported that her family is coming today to have further conversation with the primary care team and the palliative consult service regarding plans and expectations. PHYSICAL EXAMINATION: VITAL SIGNS: Blood pressure 138/71, heart rate is 71, respiratory rate is 20, O2 saturation 100%. GENERAL: Spontaneous tidal volumes 250 to 300. She is not in distress. She does not respond to verbal stimuli. LUNGS: Rhonchi, but no wheezing or rales. HEART: Regular rate and rhythm. There is no murmur. ABDOMEN: Obese, soft. There is no organomegaly. EXTREMITIES: 1+ edema. LABORATORY: White count 12,100, hemoglobin is 10.6. Blood gas includes pH 7.36, CO2 of 52, PO2 of 138, bicarbonate 28, this obtained on a rate of 6 with FiO2 of 50%. Electrolytes include sodium 142, potassium 3.6, chloride 106, CO2 of 30, BUN 37, and creatinine 1. IMPRESSION: 1. Heart failure with associated respiratory failure. She is on hydralazine, isosorbide, and trial of reducing dobutamine. 2. Ventilator associated pneumonia on Merrem. 3. Diabetes. PLAN: We will continue attempts at ventilator reduction. Family is coming today for further conversation. Ideally, the patient should be at minimum DNR and hopefully conversation can be directed toward removal of care, avoiding repeat intubation, even going on hospice. I am not sure that the family is willing to go quite as far. We will continue with antibiotics and if she does well on CPAP, would be a candidate for extubation, although only after plans for re-intubation have been defined. Job ID: [id number]
[2020-01-09] MEDS ORDERED: Polyethylene Glycol 3350 17 GM Packet PER TUBE SCH (09:45)
[2020-01-09] MEDS: Atorvastatin Calcium 40 MG TAB PO SCH (20:53)
[2020-01-09] MEDS: Insulin Glargine 25 UNITS in Pre-Filled Syringe 1 EACH SC SCH (20:54)
[2020-01-10 06:16] LABS: #Basophils 0.1 thou/uL (0.0-0.2); #Eosinphils 0.1 thou/uL (0.0-0.7); #Lymphocytes 1.7 thou/uL (1.20-3.40); #Monocytes 0.8 thou/uL (0.11-0.59); #Neutrophils 10.4 thou/uL (1.40-6.50); %Basophils 0.5 % (0.0-1.0); %Lymphocytes 12.7 % (21.0-51.0); %Monocytes 6.2 % (0.0-10.0); %Neutrophils 79.6 % (42.0-75.0); Hemoglobin 10.2 g/dL (12.0-16.0); Mean Corpuscular HGB CONC 31.6 g/dL (32.0-36.0); Mean Corpuscular Hemoglobin 31.2 pg (27.0-31.0); Mean Corpuscular Volume 98.7 fL (78.0-98.0); Mean Platelet Volume 10.2 fL (7.4-10.4); Platelet Count 192 thou/uL (130-400); RBC Distribution Width 13.9 % (11.5-14.5); Red Blood Cell (RBC) Count 3.28 mill/uL (4.20-5.40); White Blood Cell (WBC) Count 13.1 thou/uL (4.8-10.8)
[2020-01-10 06:19] LABS: Anion Gap 10 mmol/L (10-20); BUN (Urea Nitrogen) 35 mg/dL (9.8-20.1); Calc. Creatinine Clearance 79 mL/min (70-130); Calcium 8.8 mg/dL (7.8-10.44); Carbon Dioxide 30 mmol/L (23-31); Chloride 109 mmol/L (98-107); Estimated GFR-MDRD 73; Glucose 90 mg/dL (83-110); Sodium 145 mmol/L (136-145)
[2020-01-10] MEDS: Levothyroxine 150 MCG TAB PO SCH (06:41)
[2020-01-10] MEDS: Meropenem 2 GM in Sodium Chloride 0.9% 100 ML IVPB SCH ×3 (06:41→22:09)
[2020-01-10 07:15] LABS: Actual Bicarbonate (HCO3a) 30.6 mEq/L (22-28); CO2 Tension 44.5 mmHg (35.0-45.0); Calcium, Ionized 1.24 mmol/L (1.12-1.30); Carboxyhemoglobin (COHb) 1.1 gm% (0.0-3.0); Hemoglobin (Hb) 10.2 g/dL (12.0-16.0); O2 Tension (PaO2), arterial 119.6 mmHg (> 60.0); Potassium - ABG Lab 3.84 mmol/L (3.70-5.30); pH, Arterial 7.46 (7.35-7.45)
[2020-01-10 07:16] LABS: ALV-art Gradient 109.975 (0-20); Puncture Site LRA
--- NOTE | 2020-01-10 08:37 | RAD ---
Chest one view HISTORY: Pneumonia. Follow-up. COMPARISON: 01/09/2020. FINDINGS: Cardiac silhouette is magnified. Margins partially obscured by ill-defined bilateral lower lobe and right middle lobe parenchymal opacities. Similar in appearance to the prior study. Pulmonary vasculature remains engorged. Mediastinum is midline. Lines and tubes appear unchanged in position. No evidence of pneumothorax. IMPRESSION : Bibasilar infiltrates and other findings are stable.
[2020-01-10] MEDS: HumaLOG 300 UNITS/3 ML VIAL SC SCH ×3 (08:38→17:04)
--- NOTE | 2020-01-10 08:40 | PRG ---
DATE OF SERVICE: 01/10/2020 35 minutes of critical care time. SUBJECTIVE: The patient remains intubated on mechanical ventilation. There have been no acute changes overnight. OBJECTIVE: VITAL SIGNS: Temperature 98.5, pulse , blood pressure 147/73, O2 saturation 100%. The patient is currently on Precedex. She will wake up and follow commands for me. HEENT: Unremarkable. NECK: No adenopathy or JVD. LUNGS: Coarse breath sounds. CARDIAC: S1 and S2. Regular. ABDOMEN: Soft. EXTREMITIES: No edema. LABORATORY DATA: ABG; pH 7.46, pCO2 of 44, pO2 of 119, on SIMV rate 4, tidal volume 450, PEEP 5, pressure support 18, FiO2 of 40%. Sodium 145, potassium 4, chloride 109, CO2 of 30, BUN 35, creatinine 0.9, and glucose 90. White blood cell count 13, hematocrit 32.3, and platelet count 192. X-ray shows no significant change. ASSESSMENT: 1. Acute respiratory failure requiring mechanical ventilation. 2. Chronic systolic heart failure. 3. Nosocomial pneumonia with Pseudomonas aeruginosa, which is sensitive to the meropenem. PLAN: 1. Try to reduce pressure support breathing. 2. Try to define how the family wanted it handled once the patient is extubated, i.e., whether or not they would want re-intubation. Job ID: [id number]
[2020-01-10] MEDS: Enoxaparin Sodium 40 MG/0.4 ML SYRINGE SC SCH (09:37)
--- NOTE | 2020-01-10 09:44 | PDOC.FM ---
- Subjective Subjective: Patient responding to verbal commands, intubated on SIMV Daughter present in room, gave updates - Objective Vital Signs & Weight: Vital Signs (12 hours) Temp Pulse Resp BP 01/10/20 07:01 70 139/76 01/10/20 06:00 10 L 01/10/20 04:00 98.5 F 10 L 01/10/20 02:00 17 01/10/20 00:00 98.4 F 18 01/09/20 22:00 13 Weight Admit Weight 103.9 kg Weight 105 kg Most Recent Monitor Data Heart Rate from ECG 70 NIBP 128/71 NIBP BP-Mean 90 Respiration from ECG 27 SpO2 98 I&O: 01/09/20 01/10/20 01/11/20 06:59 06:59 06:59 Intake Total 1849.9 744 Output Total 1731 1570 Balance 118.9 -826 Result Diagrams: 01/10/20 05:39 01/10/20 05:39 Phys Exam - Physical Examination Constitutional: NAD EOMI intubated on mech ventilation Cardiovascular: RRR, no significant murmur Gastrointestinal: non-tender Neurological: non-focal, moves all 4 limbs Dx/Plan (1) (HFpEF) heart failure with preserved ejection fraction Code(s): I50.30 - UNSPECIFIED DIASTOLIC (CONGESTIVE) HEART FAILURE Status: Acute (2) Hypercapnic respiratory failure Code(s): J96.92 - RESPIRATORY FAILURE, UNSPECIFIED WITH HYPERCAPNIA Status: Acute (3) Palliative care encounter Code(s): Z51.5 - ENCOUNTER FOR PALLIATIVE CARE Status: Acute (4) Physical deconditioning Code(s): R53.81 - OTHER MALAISE Status: Acute (5) CHF (congestive heart failure) Code(s): I50.9 - HEART FAILURE, UNSPECIFIED Status: Chronic - Plan Plan: Acute hypoxic respiratory failure 2/2 acute HFrEF exacerbation - intubated, sedation protocol on precedex - Pulmonology consulted, appreciate recs - Cardiology following - Strict I/O. lasix, monitor bicarb, diamox - Tube feeds, sugar free pseudomonas ventilator associated pneumonia - fever to 101.4, bcx/ucx wnl - procal elevated, trend - sensitive to merem, continue Mixed acid base disturbance - improved, continue to monitor - diamox Hypokalemia - monitor and continue electrolyte replacement. - magnesium wnl DERICK, resolved - Stable. HLD -Continue statin HTN -Continue home medications Hypothyroid -continue home medications DM2 - at goal - Glargine 46 units in AM, 25 units in PM - Humalog 15 units TID-WM - mod SSI RIMA - aware Bladder cancer, s/p resection Code: Full Lines/Drains: OG, ET, PIV, Midline, Rodrigez IVF: SL. ppx: lovenox, protonix dispo: continue respiratory support, guarded prognosis. palliative on board. might need trach placement for intermediate designer respiratory support. discuss with family. Addendum - Attending - Attending Attestation Date/Time: 01/10/20 7704 I personally evaluated the patient and discussed the management with Dr. Rodgers I agree with the History, Examination, Assessment and Plan documented above with any addition or exceptions noted below. 84 yo F on day 12 of intubation after CHF exacerbation as well as VAP 2/2 pseudomonas. Cont antibiotics. Patient has failed weaning trials to this point. Pulm making vent adjustments, recs appreciated. Will discuss extubation trial, re-intubation, and trach with family. Palliative consulted. Poor intermediate designer prognosis. RA Berry
[2020-01-10] MEDS: Furosemide 40 MG/4 ML VIAL SLOW IVP SCH (09:49)
[2020-01-10] MEDS: Artificial Tear Sol 15 ML BOT EA EYE SCH (09:50)
[2020-01-10] MEDS: acetaZOLAMIDE Sodium 500 MG in Sodium Chloride 0.9% 50 ML IVPB SCH (09:57)
--- NOTE | 2020-01-10 10:38 | PDOC.PALPN ---
Palliative Progress Note - Subjective Remains on mechanical ventilation, increase in alertness and ability to follow verbal commands. Daughter Estefany and son Luis Daniel present at bedside - Objective Vital Signs: Vital Signs - Most Recent Temp Pulse Resp BP Pulse Ox 98.5 F 70 10 L 139/76 100 01/10/20 04:00 01/10/20 07:01 01/10/20 06:00 01/10/20 07:01 01/09/20 20:00 - Physical Exam Constitutional: ill appearing HEENT: EOMI, moist MMs Deviation from normal: Mechanical ventilation Cardiovascular: RRR Gastrointestinal: soft, non-tender Genitourinary: carreon catheter Musculoskeletal: pulses present, diffuse muscle atrophy Neurology: moves all 4 limbs Skin: cap refill <2 seconds, no lesions, no rash - Assessment (1) Physical deconditioning Code(s): R53.81 - OTHER MALAISE Current Visit: Yes Status: Acute (2) Palliative care encounter Code(s): Z51.5 - ENCOUNTER FOR PALLIATIVE CARE Current Visit: Yes Status: Acute (3) (HFpEF) heart failure with preserved ejection fraction Code(s): I50.30 - UNSPECIFIED DIASTOLIC (CONGESTIVE) HEART FAILURE Current Visit: Yes Status: Acute (4) Hypercapnic respiratory failure Code(s): J96.92 - RESPIRATORY FAILURE, UNSPECIFIED WITH HYPERCAPNIA Current Visit: Yes Status: Acute (5) Diabetes mellitus type 2 in obese Code(s): E11.9 - TYPE 2 DIABETES MELLITUS WITHOUT COMPLICATIONS; E66.9 - OBESITY , UNSPECIFIED Current Visit: No Status: Chronic - Plan Plan: Met with patient daughter Estefany who is also MPOA and patient son Luis Daniel. Discussed their concerns and reviewed MPOA. Hopeful to extubate later this week. Understanding that if they are not able that consideration for a Trach will need to be given. Uncertain if they will elect a trach, but is a strong consideration. Revisited that if she is able to be extubated and maintain airway hope is that patient will be able to express wishes, concern is that she would not be strong enough to have rehab. Also revisited hospice as a consideration depending on progress the next few days as well as tolerating hopeful extubation. Communicated with Dr Vishal OCHOA present Therapeutic listening and emotional support [45] minutes spent on this encounter with >50% of the time in counseling and coordination of care. - ROS Non Response: due to endotracheal tube
[2020-01-10] MEDS: Bisacodyl 5 MG TAB PO SCH ×3 (13:17→17:04)
[2020-01-10] MEDS: Calcium Carbonate 500 MG TAB PO SCH (13:18)
[2020-01-10] MEDS: Ezetimibe 10 MG TAB PO SCH (13:18)
[2020-01-10] MEDS: Spironolactone 25 MG TAB PO SCH (13:18)
[2020-01-10] MEDS: Aspirin 81 mg Enteric Coated Tablet PO SCH (13:18)
[2020-01-10] MEDS: Carvedilol 25 MG TAB PO SCH ×2 (13:18→19:38)
[2020-01-10] MEDS: Ascorbic Acid 500 mg Chewable Tablet PO SCH (13:18)
[2020-01-10] MEDS: Fish Oil 1,000 MG CAP PO SCH (13:18)
[2020-01-10] MEDS: Isosorbide Dinitrate 20 MG TAB PO SCH ×2 (13:19→19:38)
[2020-01-10] MEDS: Insulin Glargine 46 UNITS in Pre-Filled Syringe 1 EACH SC SCH (13:19)
[2020-01-10] MEDS: Magnesium Oxide 400 MG TAB PO SCH (13:19)
[2020-01-10] MEDS: Polyethylene Glycol 3350 17 GM Packet PER TUBE SCH (13:19)
[2020-01-10] MEDS: Multivits W-Minerals Liquid 15 ML LIQ PER TUBE SCH (13:19)
[2020-01-10] MEDS: Pantoprazole 40 MG GRANULES PACKET PER TUBE SCH (13:19)
[2020-01-10] MEDS: hydrALAZINE 25 MG TAB PO SCH ×3 (13:19→19:38)
[2020-01-10] MEDS: Potassium Chloride 20 MEQ TAB PO SCH (13:20)
[2020-01-10] MEDS: Sotalol HCl 80 MG TAB PO SCH ×2 (13:21→19:38)
[2020-01-10] MEDS: Sterile Water 10 ML VIAL IVP SCH ×3 (13:21→19:39)
[2020-01-10] MEDS: Senokot S 8.6-50 MG TAB PO SCH ×2 (13:21→19:39)
[2020-01-10] MEDS: Zinc Sulfate 220 MG CAP PO SCH (13:21)
[2020-01-10] MEDS ORDERED: Bisacodyl 10 MG SUPP PR PRN (14:04)
[2020-01-10] MEDS: Atorvastatin Calcium 40 MG TAB PO SCH (19:38)
[2020-01-10] MEDS: Insulin Glargine 25 UNITS in Pre-Filled Syringe 1 EACH SC SCH (20:22)
[2020-01-11] MEDS: Levothyroxine 150 MCG TAB PO SCH (05:54)
[2020-01-11 06:21] LABS: Anion Gap 11 mmol/L (10-20); BUN (Urea Nitrogen) 29 mg/dL (9.8-20.1); Calc. Creatinine Clearance 74 mL/min (70-130); Calcium 8.6 mg/dL (7.8-10.44); Carbon Dioxide 30 mmol/L (23-31); Chloride 108 mmol/L (98-107); Estimated GFR-MDRD 68; Glucose 150 mg/dL (83-110); Potassium 4.2 mmol/L (3.5-5.1); Sodium 145 mmol/L (136-145)
[2020-01-11 06:47] LABS: Hemoglobin 10.4 g/dL (12.0-16.0); Mean Corpuscular HGB CONC 31.1 g/dL (32.0-36.0); Mean Corpuscular Hemoglobin 30.9 pg (27.0-31.0); Mean Corpuscular Volume 99.6 fL (78.0-98.0); Mean Platelet Volume 10.1 fL (7.4-10.4); Platelet Count 249 thou/uL (130-400); RBC Distribution Width 13.8 % (11.5-14.5); Red Blood Cell (RBC) Count 3.37 mill/uL (4.20-5.40); White Blood Cell (WBC) Count 13.4 thou/uL (4.8-10.8)
[2020-01-11 06:54] LABS: Actual Bicarbonate (HCO3a) 28.7 mEq/L (22-28); Base Excess (BEa) 3.2 mEq/L (-2.0 to +3.0); CO2 Tension 47.7 mmHg (35.0-45.0); Calcium, Ionized 1.26 mmol/L (1.12-1.30); Carboxyhemoglobin (COHb) 1.3 gm% (0.0-3.0); Hemoglobin (Hb) 11.5 g/dL (12.0-16.0); O2 Tension (PaO2), arterial 69.4 mmHg (> 60.0)
[2020-01-11 06:55] LABS: ALV-art Gradient 84.875 (0-20); Puncture Site LRA
--- NOTE | 2020-01-11 07:02 | PDOC.FM ---
- Subjective Subjective: NAEO. Follows verbal commands. On light sedation with 0.4mcg of precedex. - Objective Vital Signs & Weight: Vital Signs (12 hours) Temp Pulse Resp BP Pulse Ox 01/11/20 06:34 70 155/89 H 01/11/20 06:00 28 H 01/11/20 04:00 98.5 F 01/11/20 02:00 20 01/11/20 00:00 97.8 F 16 01/10/20 22:00 12 01/10/20 20:00 99.1 F 20 94 L 01/10/20 19:38 80 143/83 H Weight Admit Weight 103.9 kg Weight 102.6 kg Most Recent Monitor Data Heart Rate from ECG 80 NIBP 155/89 NIBP BP-Mean 111 Respiration from ECG 20 SpO2 97 I&O: 01/09/20 01/10/20 01/11/20 06:59 06:59 06:59 Intake Total 1849.9 744 1383.1 Output Total 1731 1570 1572 Balance 118.9 -826 -188.9 Result Diagrams: 01/11/20 03:54 01/11/20 03:54 Phys Exam - Physical Examination Constitutional: NAD intubated on mechanical ventilation HEENT: moist MMs Cardiovascular: RRR, no significant murmur Gastrointestinal: soft, non-tender, no distention Musculoskeletal: no edema Neurological: non-focal, moves all 4 limbs Dx/Plan (1) (HFpEF) heart failure with preserved ejection fraction Code(s): I50.30 - UNSPECIFIED DIASTOLIC (CONGESTIVE) HEART FAILURE Status: Acute (2) Hypercapnic respiratory failure Code(s): J96.92 - RESPIRATORY FAILURE, UNSPECIFIED WITH HYPERCAPNIA Status: Acute (3) Palliative care encounter Code(s): Z51.5 - ENCOUNTER FOR PALLIATIVE CARE Status: Acute (4) Physical deconditioning Code(s): R53.81 - OTHER MALAISE Status: Acute (5) CHF (congestive heart failure) Code(s): I50.9 - HEART FAILURE, UNSPECIFIED Status: Chronic - Plan Plan: Acute hypoxic respiratory failure 2/2 acute HFrEF exacerbation on mechanical ventilation - intubated, sedation protocol on precedex - Pulmonology consulted, appreciate recs - Cardiology following - Strict I/O. lasix, monitor bicarb, diamox - Tube feeds, sugar free - SIMV, FiO2 30, TV 450, RR4, PEEP 5, Ppeak 22 Pseudomonas ventilator associated pneumonia - fever to 101.4, bcx/ucx wnl - procal elevated, trend - sensitive to merem, continue Mixed acid base disturbance - improved, continue to monitor - diamox Hypokalemia -resolved, continue monitoring with daily BMP DERICK, resolved - Stable. HLD -Continue statin HTN -Continue home medications Hypothyroid -continue home medications DM2 - at goal - Glargine 20 units in AM, 25 units in PM - Humalog 15 units TID-WM - mod SSI RIMA - aware Bladder cancer, s/p resection Code: Full Lines/Drains: OGT, ET, PIV, Midline, Rodrigez IVF: SL. ppx: lovenox, protonix Nutrition: OGT feeds at 30cc/hr 01/10 Summary: 1) Decrease lantus since glucose running on lower end with only OGT feeds. Continue sliding scale. Plan for extubation trial Friday. Discussed with family possible need for senior living tracheostomy with PEG tube. Addendum - Attending - Attending Attestation Date/Time: 01/11/20 0103 I personally evaluated the patient and discussed the management with Dr. Rodgers I agree with the History, Examination, Assessment and Plan documented above with any addition or exceptions noted below. 84 yo F on day 13 of intubation after CHF exacerbation as well as VAP 2/2 pseudomonas. Cont antibiotics. Spontaneous breathing trial today. Family would want to pursue trach/peg if necessary. Appreciate Pulm and Palliative support. RA Berry
--- NOTE | 2020-01-11 07:48 | RAD ---
Chest one view HISTORY: Pneumonia. Follow-up. COMPARISON: 01/10/2020. FINDINGS: Cardiac silhouette remains magnified, enlarged, and partially obscured by patchy bibasilar airspace disease. Mediastinum is midline. Lines and tubes appear unchanged in position. Pulmonary vasculature is engorged. Patchy areas of parenchymal infiltrate throughout each lung, predo minantly central, are similar in appearance to the previous exam. No evidence of pneumothorax. IMPRESSION : Bibasilar infiltrates, cardiomegaly, pulmonary edema, and other findings are stable.
[2020-01-11] MEDS: Bisacodyl 5 MG TAB PO SCH ×3 (07:56→16:33)
[2020-01-11] MEDS: Artificial Tear Sol 15 ML BOT EA EYE SCH (07:56)
[2020-01-11] MEDS: Spironolactone 25 MG TAB PO SCH (07:56)
[2020-01-11] MEDS: HumaLOG 300 UNITS/3 ML VIAL SC SCH ×2 (07:56→12:54)
[2020-01-11] MEDS: acetaZOLAMIDE Sodium 500 MG in Sodium Chloride 0.9% 50 ML IVPB SCH (08:04)
[2020-01-11] MEDS: Carvedilol 25 MG TAB PO SCH ×2 (08:05→19:31)
[2020-01-11] MEDS: Zinc Sulfate 220 MG CAP PO SCH (08:05)
[2020-01-11] MEDS: Polyethylene Glycol 3350 17 GM Packet PER TUBE SCH (08:06)
[2020-01-11] MEDS: Multivits W-Minerals Liquid 15 ML LIQ PER TUBE SCH (08:08)
[2020-01-11] MEDS: Fish Oil 1,000 MG CAP PO SCH (08:12)
[2020-01-11] MEDS: hydrALAZINE 25 MG TAB PO SCH ×3 (08:12→19:31)
[2020-01-11] MEDS: Ezetimibe 10 MG TAB PO SCH (08:13)
[2020-01-11] MEDS: Calcium Carbonate 500 MG TAB PO SCH (08:20)
[2020-01-11] MEDS: Potassium Chloride 20 MEQ TAB PO SCH (08:20)
[2020-01-11] MEDS: Ascorbic Acid 500 mg Chewable Tablet PO SCH (08:20)
[2020-01-11] MEDS: Senokot S 8.6-50 MG TAB PO SCH ×2 (08:20→19:32)
[2020-01-11] MEDS: Magnesium Oxide 400 MG TAB PO SCH (08:21)
[2020-01-11] MEDS: Pantoprazole 40 MG GRANULES PACKET PER TUBE SCH (08:21)
[2020-01-11] MEDS: Aspirin 81 mg Enteric Coated Tablet PO SCH (08:22)
[2020-01-11] MEDS: HumaLOG 300 UNITS/3 ML VIAL SC PRN ×2 (08:36→15:46)
[2020-01-11] MEDS: Meropenem 2 GM in Sodium Chloride 0.9% 100 ML IVPB SCH ×3 (08:41→21:02)
[2020-01-11 08:51] LABS: Band 7 % (5-11); Lymphocytes 14 % (21-51); MDiff Complete? YES; Monocytes 5 % (0-10); Neutrophil 74 % (42-75); Platelet Morphology Comment Appears Adequate; Polychromasia SLIGHT = 2-3 cells (100X) (0-2/hpf)
[2020-01-11] MEDS: Furosemide 40 MG/4 ML VIAL SLOW IVP SCH (08:51)
[2020-01-11] MEDS: Isosorbide Dinitrate 20 MG TAB PO SCH ×2 (08:51→19:31)
[2020-01-11] MEDS: Sotalol HCl 80 MG TAB PO SCH ×2 (08:51→19:31)
[2020-01-11] MEDS: Insulin Glargine 46 UNITS in Pre-Filled Syringe 1 EACH SC SCH (08:57)
[2020-01-11] MEDS: Enoxaparin Sodium 40 MG/0.4 ML SYRINGE SC SCH (08:57)
[2020-01-11] MEDS: Sterile Water 10 ML VIAL IVP SCH ×3 (08:58→19:33)
[2020-01-11] MEDS ORDERED: Insulin Glargine 20 UNITS in Pre-Filled Syringe 1 EACH SC SCH (08:58)
--- NOTE | 2020-01-11 09:02 | PRG ---
DATE OF SERVICE: 01/11/2020 A 35 minutes of critical care time. SUBJECTIVE: Ms. Mayfield will wake up for me and follow commands. OBJECTIVE: VITAL SIGNS: Temperature 98.5, pulse 80, blood pressure 155/89, and O2 saturation 97%. A 24-hour intake 1383 and output 1572. Weight 226 pounds. HEENT: Unremarkable except for the endotracheal tube in place. NECK: No adenopathy or JVD. LUNGS: Clear anteriorly. CARDIAC: S1 and S2. Regular. ABDOMEN: Obese and soft. EXTREMITIES: No edema. LABORATORY DATA: A pH of 7.40, pCO2 of 47, pO2 of 69, SIMV rate 4, tidal volume 450, PEEP 5, pressure support 16, and FiO2 of 30%. Sodium 145, potassium 4.2, chloride 108, CO2 of 30, BUN 29, creatinine 0.9, and glucose 150. White blood cell count 13.4, hematocrit 33.5, and platelet count 249. Chest x-ray shows continued bilateral pulmonary edema. ASSESSMENT: 1. Acute on chronic respiratory failure requiring mechanical ventilation. 2. Acute on chronic systolic heart failure. 3. Nosocomial pneumonia with Pseudomonas aeruginosa, which is sensitive to meropenem. PLAN: 1. I am trying her on proportional assist mode on pressure support to see if this will help. Of note, she is requiring a lot of pressure support in order to maintain good tidal volumes, indicating that she is still very weak. 2. Continue antibiotics. 3. Updated the family at bedside additionally. I feel that there is fairly significant chance the patient is going to need a tracheostomy. We will make decision towards the end of the week. Job ID: [id number]
[2020-01-11] MEDS: Atorvastatin Calcium 40 MG TAB PO SCH (19:31)
[2020-01-11] MEDS: Insulin Glargine 25 UNITS in Pre-Filled Syringe 1 EACH SC SCH (19:48)
[2020-01-12] MEDS: HumaLOG 300 UNITS/3 ML VIAL SC PRN ×4 (00:20→23:46)
[2020-01-12 04:53] LABS: Anion Gap 11 mmol/L (10-20); BUN (Urea Nitrogen) 29 mg/dL (9.8-20.1); Calc. Creatinine Clearance 75 mL/min (70-130); Calcium 8.7 mg/dL (7.8-10.44); Carbon Dioxide 31 mmol/L (23-31); Chloride 109 mmol/L (98-107); Estimated GFR-MDRD 69; Glucose 204 mg/dL (83-110); Potassium 4.3 mmol/L (3.5-5.1); Sodium 147 mmol/L (136-145)
[2020-01-12 05:06] LABS: Band 15 % (5-11); Eosinophils 1 % (0-10); Lymphocytes 18 % (21-51); MDiff Complete? YES; Mean Corpuscular HGB CONC 30.1 g/dL (32.0-36.0); Mean Corpuscular Hemoglobin 29.8 pg (27.0-31.0); Mean Corpuscular Volume 99.2 fL (78.0-98.0); Mean Platelet Volume 10.1 fL (7.4-10.4); Metamyelocyte 1 % (0-0); Monocytes 2 % (0-10); Neutrophil 63 % (42-75); Platelet Count 231 thou/uL (130-400); Platelet Morphology Comment Appears Adequate; Red Blood Cell (RBC) Count 4.03 mill/uL (4.20-5.40); White Blood Cell (WBC) Count 16.1 thou/uL (4.8-10.8)
[2020-01-12] MEDS: Meropenem 2 GM in Sodium Chloride 0.9% 100 ML IVPB SCH ×3 (05:12→22:33)
[2020-01-12] MEDS: Levothyroxine 150 MCG TAB PO SCH (05:12)
--- NOTE | 2020-01-12 07:24 | PDOC.FM ---
- Subjective Subjective: Patient still intubated on mechanical ventilation with precedex. Awake and responding to verbal commands. No acute events overnight. - Objective Vital Signs & Weight: Vital Signs (12 hours) Temp Pulse Resp BP Pulse Ox 01/12/20 06:00 22 H 01/12/20 04:00 97.6 F 17 01/12/20 02:00 17 01/12/20 00:00 97.9 F 16 01/11/20 22:00 14 01/11/20 20:00 98.9 F 15 93 L 01/11/20 19:31 70 143/75 H Weight Admit Weight 103.9 kg Weight 102.5 kg Most Recent Monitor Data Heart Rate from ECG 70 NIBP 154/84 NIBP BP-Mean 107 Respiration from ECG 26 SpO2 96 I&O: 01/11/20 01/12/20 01/13/20 06:59 06:59 06:59 Intake Total 1383.1 2669.6 Output Total 1572 1880 Balance -188.9 789.6 Result Diagrams: 01/12/20 04:11 01/12/20 04:11 Phys Exam - Physical Examination Constitutional: NAD HEENT: moist MMs intubated on mechanical ventilation crackles in b/l lungs Cardiovascular: RRR, no significant murmur Gastrointestinal: soft, positive bowel sounds Musculoskeletal: no edema Neurological: non-focal, moves all 4 limbs Dx/Plan (1) (HFpEF) heart failure with preserved ejection fraction Code(s): I50.30 - UNSPECIFIED DIASTOLIC (CONGESTIVE) HEART FAILURE Status: Acute (2) Hypercapnic respiratory failure Code(s): J96.92 - RESPIRATORY FAILURE, UNSPECIFIED WITH HYPERCAPNIA Status: Acute (3) Palliative care encounter Code(s): Z51.5 - ENCOUNTER FOR PALLIATIVE CARE Status: Acute (4) Physical deconditioning Code(s): R53.81 - OTHER MALAISE Status: Acute (5) CHF (congestive heart failure) Code(s): I50.9 - HEART FAILURE, UNSPECIFIED Status: Chronic - Plan Plan: Acute hypoxic respiratory failure 2/2 acute HFrEF exacerbation on mechanical ventilation - intubated, sedation protocol on precedex - Cardiology following - Strict I/O. lasix, monitor bicarb, diamox - Tube feeds, sugar free - SIMV, FiO2 30, TV 450, RR4, PEEP 5, Ppeak 22, Psupp 16 - SBT today, likely will need trach/peg Pseudomonas ventilator associated pneumonia - Afebrile and not requiring tylenol since 01/07 - procal 0.61, repeat today to trend - sensitive to merem, continue Hypernatremia -147, 2.3L water deficit -Hold lasix -discuss free water intake through OGT Mixed acid base disturbance - improved, continue to monitor - HCO3 31, continue diamox Hypokalemia -resolved, continue monitoring with daily BMP DERICK, resolved - Stable. HLD -Continue statin HTN -Continue home medications Hypothyroid -continue home medications DM2 - Hyperglycemic - Glargine- titrate up insulin - Goal <180 RIMA - aware Bladder cancer, s/p resection Code: Full Lines/Drains: OGT, ET, PIV, Midline, Rodrigez IVF: SL. ppx: lovenox, protonix Nutrition: OGT feeds at 30cc/hr 01/11 Summary: 1) Inc lantus for goal BG <180. Continue sliding scale. 2) CXR appears mildly improved from yesterday's. Plan for extubation trial today since day 14 on ventilator. Appreciate pulm & palliative recs. Discussed with family possible need for custodial tracheostomy with PEG tube. Addendum - Attending - Attending Attestation Date/Time: 01/12/20 1220 I personally evaluated the patient and discussed the management with Dr. Rodgers I agree with the History, Examination, Assessment and Plan documented above with any addition or exceptions noted below. 84 yo F on day 14 of intubation after CHF exacerbation as well as VAP 2/2 pseudomonas. Cont antibiotics. Patient continues to fail spontaneous breathing trials. Anticipate trach/PEG. Increased flushes in light of hypernatremia. Titrating insulin. RA Berry
[2020-01-12 07:41] LABS: Actual Bicarbonate (HCO3a) 28.4 mEq/L (22-28); Base Excess (BEa) 4.4 mEq/L (-2.0 to +3.0); CO2 Tension 40.2 mmHg (35.0-45.0); Calcium, Ionized 1.27 mmol/L (1.12-1.30); Carboxyhemoglobin (COHb) 1.4 gm% (0.0-3.0); Hemoglobin (Hb) 11.7 g/dL (12.0-16.0); O2 Tension (PaO2), arterial 99.8 mmHg (> 60.0); Potassium - ABG Lab 4.13 mmol/L (3.70-5.30); pH, Arterial 7.47 (7.35-7.45)
[2020-01-12 07:42] LABS: Puncture Site LRA
--- NOTE | 2020-01-12 07:57 | RAD ---
SINGLE VIEW OF THE CHEST: COMPARISON: 01/11/2020. HISTORY: Pneumonia. FINDINGS: A single view of the chest shows an enlarged but stable cardiomediastinal silhouette. The lines and tubes are unchanged in position. The pacemaker is unchanged in position. Diffuse multifocal infiltr ates are again seen in the lungs. There may e a small left pleural effusion. IMPRESSION: Stable exam. POS: EAA
[2020-01-12] MEDS: Zinc Sulfate 220 MG CAP PO SCH (08:27)
[2020-01-12] MEDS: hydrALAZINE 25 MG TAB PO SCH ×4 (08:27→20:37)
[2020-01-12] MEDS: Senokot S 8.6-50 MG TAB PO SCH ×2 (08:27→20:38)
[2020-01-12] MEDS: Magnesium Oxide 400 MG TAB PO SCH (08:27)
[2020-01-12] MEDS: Ezetimibe 10 MG TAB PO SCH (08:27)
[2020-01-12] MEDS: Pantoprazole 40 MG GRANULES PACKET PER TUBE SCH (08:27)
[2020-01-12] MEDS: Aspirin 81 mg Enteric Coated Tablet PO SCH (08:28)
[2020-01-12] MEDS: Enoxaparin Sodium 40 MG/0.4 ML SYRINGE SC SCH (08:28)
[2020-01-12] MEDS: Multivits W-Minerals Liquid 15 ML LIQ PER TUBE SCH (08:28)
[2020-01-12] MEDS: Sotalol HCl 80 MG TAB PO SCH ×2 (08:28→20:38)
[2020-01-12] MEDS: Carvedilol 25 MG TAB PO SCH ×2 (08:28→20:37)
[2020-01-12] MEDS: Spironolactone 25 MG TAB PO SCH (08:28)
[2020-01-12] MEDS: Ascorbic Acid 500 mg Chewable Tablet PO SCH (08:28)
[2020-01-12] MEDS: Isosorbide Dinitrate 20 MG TAB PO SCH ×2 (08:28→20:39)
[2020-01-12] MEDS: Fish Oil 1,000 MG CAP PO SCH (08:28)
[2020-01-12] MEDS: Bisacodyl 5 MG TAB PO SCH ×3 (08:29→17:16)
[2020-01-12] MEDS: Calcium Carbonate 500 MG TAB PO SCH (08:33)
[2020-01-12] MEDS: acetaZOLAMIDE Sodium 500 MG in Sodium Chloride 0.9% 50 ML IVPB SCH (08:33)
[2020-01-12] MEDS: Artificial Tear Sol 15 ML BOT EA EYE SCH (08:33)
--- NOTE | 2020-01-12 08:33 | PRG ---
DATE OF SERVICE: 01/12/2020 35 minutes of critical time. SUBJECTIVE: Ms. Mayfield remains on mechanical ventilation. She will wake up, follow commands without difficulty. Still appears fairly weak. OBJECTIVE: VITAL SIGNS: Temperature 97.6, pulse 70, blood pressure 154/84, O2 saturation 96%. 24-hour intake 2669, output 1880. HEENT: Unremarkable. NECK: No adenopathy or JVD. CHEST: Fairly clear anteriorly. CARDIAC: S1 and S2. Regular. ABDOMEN: Soft. EXTREMITIES: Edematous. LABORATORY DATA: Sodium 147, potassium 4.3, chloride 109, CO2 of 31, BUN 29, creatinine 0.9, glucose 204. PH 7.47, pCO2 of 40, pO2 of 99. White count 16, hematocrit 39.9, and platelet count 231. X-ray continues to show some pulmonary edema, probable layering effusions. ASSESSMENT: 1. Acute respiratory failure requiring mechanical ventilation. 2. Pseudomonal pneumonia. 3. Congestive heart failure with low ejection fraction. PLAN: Again, we will try spontaneous breathing today. Still believes there is a significant chance that the patient will need a tracheostomy to facilitate weaning. She is continuing on meropenem for antibiotic coverage. She is becoming somewhat hypernatremic, so I will hold the Lasix for today. Job ID: [id number]
[2020-01-12] MEDS ORDERED: Insulin Glargine 24 UNITS in Pre-Filled Syringe 1 EACH SC SCH (09:00)
[2020-01-12] MEDS ORDERED: Insulin Glargine 23 UNITS in Pre-Filled Syringe 1 EACH SC SCH (09:00)
[2020-01-12] MEDS: Polyethylene Glycol 3350 17 GM Packet PER TUBE SCH (09:05)
[2020-01-12] MEDS: Sterile Water 10 ML VIAL IVP SCH ×3 (09:05→20:39)
[2020-01-12 19:44] LABS: Anion Gap 10 mmol/L (10-20); BUN (Urea Nitrogen) 25 mg/dL (9.8-20.1); Calc. Creatinine Clearance 80 mL/min (70-130); Calcium 8.8 mg/dL (7.8-10.44); Carbon Dioxide 28 mmol/L (23-31); Chloride 112 mmol/L (98-107); Estimated GFR-MDRD 74; Glucose 184 mg/dL (83-110); Potassium 4.3 mmol/L (3.5-5.1); Sodium 146 mmol/L (136-145)
[2020-01-12] MEDS: Atorvastatin Calcium 40 MG TAB PO SCH (20:36)
[2020-01-12] MEDS: Insulin Glargine 25 UNITS in Pre-Filled Syringe 1 EACH SC SCH (20:38)
[2020-01-13] MEDS: HumaLOG 300 UNITS/3 ML VIAL SC PRN ×3 (04:30→16:17)
[2020-01-13 05:00] LABS: #Eosinphils 0.2 thou/uL (0.0-0.7); #Lymphocytes 2.1 thou/uL (1.20-3.40); #Monocytes 0.8 thou/uL (0.11-0.59); #Neutrophils 15.6 thou/uL (1.40-6.50); %Basophils 0.1 % (0.0-1.0); %Eosinophils 1.3 % (0.0-10.0); %Lymphocytes 11.2 % (21.0-51.0); %Monocytes 4.4 % (0.0-10.0); %Neutrophils 83.1 % (42.0-75.0); Mean Corpuscular HGB CONC 32.9 g/dL (32.0-36.0); Mean Corpuscular Hemoglobin 32.8 pg (27.0-31.0); Mean Corpuscular Volume 99.4 fL (78.0-98.0); Mean Platelet Volume 9.8 fL (7.4-10.4); Platelet Count 258 thou/uL (130-400); Red Blood Cell (RBC) Count 3.35 mill/uL (4.20-5.40); White Blood Cell (WBC) Count 18.8 thou/uL (4.8-10.8)
[2020-01-13 05:04] LABS: Anion Gap 9 mmol/L (10-20); BUN (Urea Nitrogen) 26 mg/dL (9.8-20.1); Calc. Creatinine Clearance 84 mL/min (70-130); Calcium 8.7 mg/dL (7.8-10.44); Carbon Dioxide 30 mmol/L (23-31); Chloride 111 mmol/L (98-107); Estimated GFR-MDRD 79; Glucose 208 mg/dL (83-110); Potassium 4.2 mmol/L (3.5-5.1); Sodium 146 mmol/L (136-145)
[2020-01-13] MEDS: Levothyroxine 150 MCG TAB PO SCH (06:37)
[2020-01-13] MEDS: Meropenem 2 GM in Sodium Chloride 0.9% 100 ML IVPB SCH ×3 (07:11→21:39)
[2020-01-13] MEDS ORDERED: Insulin Glargine 28 UNITS in Pre-Filled Syringe 1 EACH SC SCH (07:15)
--- NOTE | 2020-01-13 07:22 | PDOC.FM ---
- Subjective Subjective: NAEO. Weaned down on sedation. Nursing no concerns. Patient responds to verbal commands, opens eyes spontaneously, moving all four extremities spontanouesly. Still mechanically ventilated - Objective MAR Reviewed: Yes Vital Signs & Weight: Vital Signs (12 hours) Temp Pulse Resp Pulse Ox 01/13/20 06:00 29 H 01/13/20 05:00 98.5 F 01/13/20 04:00 24 H 01/13/20 02:00 98.3 F 29 H 01/13/20 00:00 28 H 96 01/12/20 23:00 98.5 F 01/12/20 22:00 21 H 01/12/20 20:38 80 01/12/20 20:37 80 01/12/20 20:00 30 H 95 Weight Admit Weight 103.9 kg Weight 105.6 kg Most Recent Monitor Data Heart Rate from ECG 79 NIBP 177/97 NIBP BP-Mean 123 Respiration from ECG 20 SpO2 96 I&O: 01/12/20 01/13/20 01/14/20 06:59 06:59 06:59 Intake Total 2669.6 3151 Output Total 1880 1290 Balance 789.6 1861 Result Diagrams: 01/13/20 04:25 01/13/20 04:25 Phys Exam - Physical Examination Constitutional: NAD awake, alert, unable to talk due to mech vent HEENT: moist MMs rhonchi b/l Cardiovascular: RRR, no significant murmur Gastrointestinal: soft, non-tender Musculoskeletal: no edema Neurological: non-focal, moves all 4 limbs Dx/Plan (1) (HFpEF) heart failure with preserved ejection fraction Code(s): I50.30 - UNSPECIFIED DIASTOLIC (CONGESTIVE) HEART FAILURE Status: Acute (2) Hypercapnic respiratory failure Code(s): J96.92 - RESPIRATORY FAILURE, UNSPECIFIED WITH HYPERCAPNIA Status: Acute (3) Palliative care encounter Code(s): Z51.5 - ENCOUNTER FOR PALLIATIVE CARE Status: Acute (4) Physical deconditioning Code(s): R53.81 - OTHER MALAISE Status: Acute (5) CHF (congestive heart failure) Code(s): I50.9 - HEART FAILURE, UNSPECIFIED Status: Chronic - Plan Plan: Acute hypoxic respiratory failure 2/2 acute HFrEF exacerbation on mechanical ventilation - intubated, sedation protocol on precedex - Cardiology following - Strict I/O. lasix, monitor bicarb, diamox - Tube feeds, sugar free - SIMV, FiO2 30, TV 450, RR29, PEEP 5, Ppeak 25, Psupp 14 - SBT Friday, likely will need trach/peg -discuss with daughter group home prognosis Pseudomonas ventilator associated pneumonia - Afebrile and not requiring tylenol since 01/07 - procal 0.61, repeat today to trend - sensitive to merem, continue Hypernatremia -147 > 146 : 2.3L water deficit -Hold lasix -Will inc free water intake Mixed acid base disturbance - improved, continue to monitor - HCO3 31, continue diamox Hypokalemia -resolved, continue monitoring with daily BMP DERICK, resolved - Stable. HLD -Continue statin HTN -Continue home medications Hypothyroid -continue home medications DM2 - Hyperglycemic - Glargine- titrate up insulin - Goal <180 RIMA - aware Bladder cancer, s/p resection Code: Full Lines/Drains: OGT, ET, PIV, Midline, Rodrigez IVF: SL. ppx: lovenox, protonix Nutrition: OGT feeds at 30cc/hrm free water flushes 90cc q6hr 01/12 Summary: 1) Inc lantus for goal BG <180. Continue sliding scale. 2) CXR appears mildly improved from yesterday's. Plan for extubation trial Friday. Appreciate pulm & palliative recs. Discussed with family possible need for assistant terminal manager tracheostomy with PEG tube. 3)Inc free water flushes for hypernatremia. 2.3L water deficit. Lasix, held, will need to closely monitor fluid status Addendum - Attending - Attending Attestation Date/Time: 01/13/20 0504 I personally evaluated the patient and discussed the management with Dr. Rodgers I agree with the History, Examination, Assessment and Plan documented above with any addition or exceptions noted below. 84 yo F on day 15 of intubation after CHF exacerbation as well as VAP 2/2 pseudomonas. Cont antibiotics. Patient continues to fail spontaneous breathing trials.Family still contemplating trach/peg.
[2020-01-13 07:49] LABS: Actual Bicarbonate (HCO3a) 27.1 mEq/L (22-28); Base Excess (BEa) 2.5 mEq/L (-2.0 to +3.0); CO2 Tension 42.1 mmHg (35.0-45.0); Calcium, Ionized 1.26 mmol/L (1.12-1.30); Carboxyhemoglobin (COHb) 0.9 gm% (0.0-3.0); Hemoglobin (Hb) 11.7 g/dL (12.0-16.0); O2 Tension (PaO2), arterial 73.4 mmHg (> 60.0); Potassium - ABG Lab 4.12 mmol/L (3.70-5.30); pH, Arterial 7.43 (7.35-7.45)
[2020-01-13 07:50] LABS: Puncture Site LRA
[2020-01-13 07:51] LABS: ALV-art Gradient 87.875 (0-20)
--- NOTE | 2020-01-13 08:14 | PRG ---
DATE OF SERVICE: 01/13/2020 CRITICAL CARE TIME: 37 minutes. SUBJECTIVE: Ms. Mayfield remains intubated on mechanical ventilation. She will wake up and follow commands, but is very weak and is breathing rapidly on current ventilator settings. OBJECTIVE: VITAL SIGNS: Temperature 98.5, pulse 79, respirations toward 30, blood pressure 137/97. 24-hour intake 3151, output 1290. HEENT: Unremarkable. NECK: No adenopathy or JVD. LUNGS: Coarse breath sounds. CARDIOVASCULAR: S1 and S2. Regular. ABDOMEN: Soft and nontender. EXTREMITIES: Edematous. LABORATORY DATA: Sodium 146, potassium 4.2, chloride 111, CO2 of 30, BUN 26, creatinine 0.8, glucose 208. White blood cell count 18.8, hematocrit 33.3, and platelet count 258. Blood gas; pH 7.4, pCO2 of 42, and pO2 of 73, on SIMV rate of 8, tidal volume 375, PEEP 8, pressure support 14, FiO2 of 30%. X-ray shows no significant change. ASSESSMENT: 1. [id number] respiratory failure, requiring mechanical ventilation. 2. Pseudomonal pneumonia. 3. Congestive heart failure with low ejection fraction. PLAN: I have spoken multiple times with the patient's daughter, Mrs. Rushing, who is over in [place]. I have told her that I think the only way to wean the patient from the ventilator and continuous aggressive support would be to have tracheostomy and PEG tube placed. The family was initially very much in favor that. Now they are having second thoughts, because they said the patient's ultimate wishes would be able to go home and they completely understand that with the tracheostomy that the patient may be resigned to eventual penitentiary placement. They will speak with the patient today or tomorrow. Tracheostomy is tentatively planned for tomorrow, but the patient's family may want to push that back a little further. Job ID: [id number]
--- NOTE | 2020-01-13 08:35 | RAD ---
CHEST 1 VIEW: HISTORY: Pneumonia. COMPARISON: 01/12/2020. FINDINGS: Poor inspiratory effort. Left ICD. There is considerable rotation to the right. NG tube and endotr acheal tubes are inadequately seen for adequate position based on this study. Nodular fullness of kaela th hilar regions. Atherosclerosis of the aorta. Evidence for small pleural effusions. IMPRESSION: Considerable rotation to the right, endotracheal and nasogastric tube positions are inadequately dete rmined from this study. Prominent bilateral hilar regions. Overall stable-appearing bilateral pulmo nary opacities and pleural effusions. Continued short-term followup. POS: RRE
[2020-01-13] MEDS: Sterile Water 10 ML VIAL IVP SCH ×4 (09:02→20:22)
[2020-01-13] MEDS: acetaZOLAMIDE Sodium 500 mg Vial IVP SCH (09:02)
[2020-01-13] MEDS: Enoxaparin Sodium 40 MG/0.4 ML SYRINGE SC SCH (09:05)
[2020-01-13] MEDS: Zinc Sulfate 220 MG CAP PO SCH (09:07)
[2020-01-13] MEDS: Aspirin 81 mg Enteric Coated Tablet PO SCH (09:07)
[2020-01-13] MEDS: Multivits W-Minerals Liquid 15 ML LIQ PER TUBE SCH (09:07)
[2020-01-13] MEDS: Spironolactone 25 MG TAB PO SCH (09:08)
[2020-01-13] MEDS: hydrALAZINE 25 MG TAB PO SCH ×3 (09:08→20:21)
[2020-01-13] MEDS: Isosorbide Dinitrate 20 MG TAB PO SCH ×2 (09:16→20:20)
[2020-01-13] MEDS: Sotalol HCl 80 MG TAB PO SCH ×2 (09:16→20:21)
[2020-01-13] MEDS: Ezetimibe 10 MG TAB PO SCH (09:16)
[2020-01-13] MEDS: Carvedilol 25 MG TAB PO SCH ×2 (09:17→20:21)
[2020-01-13] MEDS: Polyethylene Glycol 3350 17 GM Packet PER TUBE SCH (09:17)
[2020-01-13] MEDS: Pantoprazole 40 MG GRANULES PACKET PER TUBE SCH (09:17)
[2020-01-13] MEDS: Ascorbic Acid 500 mg Chewable Tablet PO SCH (09:17)
[2020-01-13] MEDS: Magnesium Oxide 400 MG TAB PO SCH (09:17)
[2020-01-13] MEDS: Fish Oil 1,000 MG CAP PO SCH (09:17)
[2020-01-13] MEDS: Bisacodyl 5 MG TAB PO SCH ×3 (09:17→18:22)
[2020-01-13] MEDS: Calcium Carbonate 500 MG TAB PO SCH (09:17)
[2020-01-13] MEDS: Senokot S 8.6-50 MG TAB PO SCH ×2 (09:17→20:20)
[2020-01-13] MEDS: Artificial Tear Sol 15 ML BOT EA EYE SCH (09:33)
[2020-01-13] MEDS: Morphine 2 MG/ML SYRINGE SLOW IVP PRN ×2 (12:37→21:04)
[2020-01-13] MEDS: Cyclobenzaprine 10 MG TAB PO PRN (20:20)
[2020-01-13] MEDS: Atorvastatin Calcium 40 MG TAB PO SCH (20:21)
[2020-01-13] MEDS ORDERED: Insulin Glargine 29 UNITS in Pre-Filled Syringe 1 EACH SC SCH (21:00)
[2020-01-13] MEDS: Gabapentin 300 MG CAP PO PRN (21:05)
[2020-01-13] MEDS ORDERED: Vecuronium 10 MG VIAL IVP SCH (22:45)
[2020-01-13] MEDS ORDERED: Lidocaine 1% w/Epinephrine 1:100K 20 ML VIAL FS SCH (22:45)
[2020-01-13] MEDS ORDERED: Fentanyl 100 MCG/2 ML VIAL SLOW IVP PRN ×2 (22:47→22:48)
[2020-01-13] MEDS ORDERED: Midazolam HCl 2 mg/2 ml Vial SLOW IVP SCH (23:00)
[2020-01-14] MEDS: HumaLOG 300 UNITS/3 ML VIAL SC PRN ×2 (04:04)
[2020-01-14] MEDS: Meropenem 2 GM in Sodium Chloride 0.9% 100 ML IVPB SCH (05:01)
[2020-01-14] MEDS: Levothyroxine 150 MCG TAB PO SCH (05:01)
[2020-01-14 05:46] LABS: Anion Gap 9 mmol/L (10-20); BUN (Urea Nitrogen) 24 mg/dL (9.8-20.1); Calc. Creatinine Clearance 88 mL/min (70-130); Calcium 8.7 mg/dL (7.8-10.44); Carbon Dioxide 29 mmol/L (23-31); Chloride 113 mmol/L (98-107); Estimated GFR-MDRD 81; Glucose 182 mg/dL (83-110); Potassium 4.4 mmol/L (3.5-5.1); Sodium 147 mmol/L (136-145)
[2020-01-14 05:51] LABS: Mean Corpuscular HGB CONC 29.4 g/dL (32.0-36.0); Mean Corpuscular Hemoglobin 29.5 pg (27.0-31.0); Mean Platelet Volume 9.9 fL (7.4-10.4); Platelet Count 286 thou/uL (130-400); RBC Distribution Width 14.1 % (11.5-14.5); Red Blood Cell (RBC) Count 3.41 mill/uL (4.20-5.40); White Blood Cell (WBC) Count 11.2 thou/uL (4.8-10.8)
[2020-01-14 06:26] LABS: #Eosinphils 0.2 thou/uL (0.0-0.7); #Monocytes 0.6 thou/uL (0.11-0.59); #Neutrophils 8.4 thou/uL (1.40-6.50); %Basophils 0.2 % (0.0-1.0); %Monocytes 5.2 % (0.0-10.0); %Neutrophils 74.5 % (42.0-75.0); Large Platelets SLIGHT; MDiff Complete? YES; Platelet Morphology Comment Appears Adequate
[2020-01-14 07:20] LABS: Actual Bicarbonate (HCO3a) 29.6 mEq/L (22-28); Base Excess (BEa) 4.6 mEq/L (-2.0 to +3.0); CO2 Tension 46.3 mmHg (35.0-45.0); Calcium, Ionized 1.26 mmol/L (1.12-1.30); Carboxyhemoglobin (COHb) 0.5 gm% (0.0-3.0); O2 Tension (PaO2), arterial 93.7 mmHg (> 60.0); pH, Arterial 7.42 (7.35-7.45)
[2020-01-14 07:22] LABS: ALV-art Gradient 62.325 (0-20); Puncture Site LRA
--- NOTE | 2020-01-14 07:44 | PDOC.FM ---
- Subjective Subjective: s/p trach and peg today. Currently sedated/paralyzed since just completed procedure. - Objective MAR Reviewed: Yes Vital Signs & Weight: Vital Signs (12 hours) Temp Pulse Resp BP Pulse Ox 01/14/20 06:58 78 166/127 H 01/14/20 06:00 20 01/14/20 04:00 98.2 F 22 H 01/14/20 02:46 70 123/70 01/14/20 02:00 24 H 01/14/20 00:00 97.5 F L 24 H 01/13/20 22:07 78 148/78 H 01/13/20 21:49 34 H 01/13/20 20:21 83 156/83 H 01/13/20 20:00 100 01/13/20 19:41 25 H Weight Admit Weight 103.9 kg Weight 108.8 kg Most Recent Monitor Data Heart Rate from ECG 80 NIBP 166/127 NIBP BP-Mean 140 Respiration from ECG 19 SpO2 98 I&O: 01/13/20 01/14/20 01/15/20 06:59 06:59 06:59 Intake Total 3151 3313.5 Output Total 1290 1140 Balance 1861 2173.5 Result Diagrams: 01/14/20 04:00 01/14/20 04:00 Phys Exam - Physical Examination Constitutional: NAD tracheostomy in place even rise and fall of chest Cardiovascular: RRR, no significant murmur Gastrointestinal: soft, non-tender PEG tube in place Deviation from normal: unable to assess since pt sed/vent on [facility] vent Dx/Plan (1) (HFpEF) heart failure with preserved ejection fraction Code(s): I50.30 - UNSPECIFIED DIASTOLIC (CONGESTIVE) HEART FAILURE Status: Acute (2) Hypercapnic respiratory failure Code(s): J96.92 - RESPIRATORY FAILURE, UNSPECIFIED WITH HYPERCAPNIA Status: Acute (3) Palliative care encounter Code(s): Z51.5 - ENCOUNTER FOR PALLIATIVE CARE Status: Acute (4) Physical deconditioning Code(s): R53.81 - OTHER MALAISE Status: Acute (5) CHF (congestive heart failure) Code(s): I50.9 - HEART FAILURE, UNSPECIFIED Status: Chronic - Plan Plan: Acute hypoxic respiratory failure 2/2 acute HFrEF exacerbation on mechanical ventilation - intubated, sedation protocol on precedex - Cardiology following - Strict I/O. lasix, monitor bicarb, diamox - Tube feeds, sugar free - SIMV, FiO2 30, TV 375, RR8, PEEP 5, Ppeak 25, Psupp 14 - s/p trach & peg Pseudomonas ventilator associated pneumonia - Afebrile and not requiring tylenol since 01/07 - procal 0.61, repeat today to trend - sensitive to merem, can d/c today since will be 7 days Hypernatremia -147 > 146 > 147 : 2.4L water deficit -Hold lasix Mixed acid base disturbance - improved, continue to monitor Hypokalemia -resolved, continue monitoring with daily BMP DERICK, resolved - Stable. HLD -Continue statin HTN -Continue home medications Hypothyroid -continue home medications DM2 - Hyperglycemic - Glargine- titrate up insulin - Goal <180 RIMA - aware Bladder cancer, s/p resection Code: Full Lines/Drains: OGT, ET, PIV, Midline, Rodrigez IVF: SL. ppx: lovenox, protonix Nutrition: OGT feeds at 30cc/hr free water flushes 90cc q6hr 01/12 Summary: 1) Inc lantus for goal BG <180. Continue sliding scale. 2) CXR appears mildly improved from yesterday's. s/p trach & peg, pending extbuation trial. 3)Continue free water flushes for hypernatremia. Lasix, held, will need to closely monitor fluid status 4) Elevated BP, resume nifedipine. Could be fluid overload component but holding lasix d/t hypernatremia. Continue monitoring. 5) Met alkalosis- resolved. Can d/c diamox. 6) VAP- 7th dose today of merem. BCx. Discuss d/c after today's dose Addendum - Attending - Attending Attestation Date/Time: 01/14/20 1152 I personally evaluated the patient and discussed the management with Dr. Rodgers I agree with the History, Examination, Assessment and Plan documented above with any addition or exceptions noted below. 84 yo F with chronic respiratory failure after CHF exacerbation as well as VAP 2 /2 pseudomonas. Meropenem discontinued. S/p trach and peg this morning. Appreciate pulm support. Will work with CM to achieve LTAC placement.
[2020-01-14] MEDS: Sotalol HCl 80 MG TAB PO SCH ×2 (07:47→20:18)
[2020-01-14] MEDS: hydrALAZINE 25 MG TAB PO SCH ×3 (07:47→20:18)
[2020-01-14] MEDS: Isosorbide Dinitrate 20 MG TAB PO SCH ×2 (07:48→20:17)
[2020-01-14] MEDS: Spironolactone 25 MG TAB PO SCH (07:48)
[2020-01-14] MEDS: Carvedilol 25 MG TAB PO SCH ×2 (07:48→20:19)
[2020-01-14] MEDS: acetaZOLAMIDE Sodium 500 mg Vial IVP SCH (07:58)
--- NOTE | 2020-01-14 07:58 | RAD ---
PORTABLE CHEST: Date: 01/14/2020 HISTORY: Pneumonia. CCU follow-up. COMPARISON: 01/13/2020. FINDINGS: Bilateral effusions and bibasilar infiltrates again noted. Hazy infiltrate in both upper lung serrano. Mild cardiomegaly. ET tube, NG tube, AICD leads unchanged. IMPRESSION: Exam not significantly changed from yesterday. POS: AGW
[2020-01-14] MEDS ORDERED: Furosemide 40 MG/4 ML VIAL SLOW IVP SCH ×2 (08:00→11:30)
--- NOTE | 2020-01-14 08:11 | PRG ---
DATE OF SERVICE: 01/14/2020 35 minutes of critical care time. SUBJECTIVE: The patient remains intubated on mechanical ventilation. She is going to undergo tracheostomy and feeding tube placement today. OBJECTIVE: VITAL SIGNS: Temperature 98.2, pulse 80, blood pressure 166/127, O2 saturation 98%. 24-hour intake 3313, output 1140. HEENT: Unremarkable. NECK: No adenopathy or JVD. LUNGS: Clear anteriorly. CARDIAC: S1, S2. Regular without audible murmur. ABDOMEN: Soft and nontender. EXTREMITIES: Edematous. LABORATORY DATA: White blood cell count 11.2, hematocrit 34, and platelet count 286. PH of 7.42, pCO2 of 46, pO2 of 93, on SIMV rate of 8, tidal volume of 375, FiO2 of 30%. Sodium 147, potassium 4.4, chloride 113, CO2 of 29, BUN 24, creatinine 0.8, and glucose 182. ASSESSMENT: 1. Acute respiratory failure requiring mechanical ventilation. 2. Systolic heart failure. 3. Pseudomonal pneumonia. PLAN: 1. Tracheostomy and feeding tube placement today. 2. One dose of Lasix and she has been profoundly fluid overloaded the last 2 days. 3. Can proceed with LTAC referral. Job ID: [id number]
[2020-01-14] MEDS ORDERED: Sterile Water 0 ML ONE (08:24)
[2020-01-14] MEDS ORDERED: Bacteriostatic Normal Saline 30 ML VIAL ONE (08:25)
[2020-01-14] MEDS ORDERED: CEFAZOLIN 2 GM in Premix Bag 1 BAG IVPB SCH (08:45)
[2020-01-14] MEDS: Aspirin 81 mg Enteric Coated Tablet PO SCH (11:20)
[2020-01-14] MEDS: Pantoprazole 40 MG GRANULES PACKET PER TUBE SCH (11:20)
[2020-01-14] MEDS: Calcium Carbonate 500 MG TAB PO SCH (11:20)
[2020-01-14] MEDS: Senokot S 8.6-50 MG TAB PO SCH ×2 (11:20→20:18)
[2020-01-14] MEDS: Fish Oil 1,000 MG CAP PO SCH (11:21)
[2020-01-14] MEDS: Zinc Sulfate 220 MG CAP PO SCH (11:23)
[2020-01-14] MEDS: Artificial Tear Sol 15 ML BOT EA EYE SCH (11:23)
[2020-01-14] MEDS: Ezetimibe 10 MG TAB PO SCH (11:23)
[2020-01-14] MEDS: Bisacodyl 5 MG TAB PO SCH ×3 (11:23→18:09)
[2020-01-14] MEDS: Ascorbic Acid 500 mg Chewable Tablet PO SCH (11:24)
[2020-01-14] MEDS: Insulin Glargine 32 UNITS in Pre-Filled Syringe 1 EACH SC SCH (11:24)
[2020-01-14] MEDS: Enoxaparin Sodium 40 MG/0.4 ML SYRINGE SC SCH (11:24)
[2020-01-14] MEDS: Multivits W-Minerals Liquid 15 ML LIQ PER TUBE SCH (11:25)
[2020-01-14] MEDS: Magnesium Oxide 400 MG TAB PO SCH (11:25)
[2020-01-14] MEDS: Polyethylene Glycol 3350 17 GM Packet PER TUBE SCH (11:26)
[2020-01-14] MEDS: Sterile Water 10 ML VIAL IVP SCH ×4 (11:26→20:19)
--- NOTE | 2020-01-14 11:28 | OP ---
DATE OF PROCEDURE: 01/14/2020 PREOPERATIVE DIAGNOSIS: Acute respiratory failure. POSTOPERATIVE DIAGNOSIS: Acute respiratory failure. PROCEDURES PERFORMED: 1. Percutaneous tracheostomy tube placement. 2. Percutaneous endoscopic gastrostomy tube placement. ANESTHESIA: Deep sedation and local. INDICATIONS FOR PROCEDURE: This is an 84-year-old woman, admitted in the intensive care unit in respiratory failure. I have been asked to place the percutaneous tracheostomy tube to facilitate ventilator wean. Percutaneous endoscopic gastrostomy tube placement is also warranted for potential prolonged enteral nutritional supplementation. DESCRIPTION OF PROCEDURE: Informed consent was obtained from the patient and her daughter. The patient was placed in supine position. She was placed on full mechanical ventilator support. She is on Precedex by continuous infusion. Additionally, she was given aliquots of midazolam, a total of 100 mcg of fentanyl and 10 mg of vecuronium. FiO2 set at 100%. A fiberoptic bronchoscope introduced through the previous endotracheal tube and advanced to visualize the anselmo. The scope was then withdrawn, visualizing the distal tip of the endotracheal tube, which was withdrawn to approximately 5 cm above the anselmo. The anterior neck was transilluminated and the area chosen for the placement of the tracheostomy tube. At this juncture, the anterior neck was sterilely prepped and draped in the usual fashion. The skin 2 fingerbreadths above the suprasternal notch was anesthetized with 1% lidocaine with epinephrine. A 1 cm vertical incision was made here using 15 scalpel. Introducer needle was inserted through this incision, advanced through the anterior tracheal wall, visualized by bronchoscopy. Guidewire was passed through this needle and advanced into the distal tracheal lumen without resistance. The needle was withdrawn over the guidewire. Anterior tracheal wall was sterilely dilated over the guidewire. Finally, a size 8 tracheostomy tube with a dilator and introducer catheter were advanced over the guidewire as a unit, introducing this into the distal tracheal lumen. The dilator, introducer catheter, and guidewire were removed as a unit, leaving the tracheostomy tube seated in the distal tracheal lumen, visualized by bronchoscopy. An inner cannula was inserted. The cuff was inflated, and the patient was connected to mechanical ventilator support via newly placed tracheostomy tube. Good tidal volume was noted. The previous endotracheal tube was withdrawn with the bronchoscope as a unit, visualizing the tracheostomy site from above with good hemostasis. The scope was reintroduced through the newly placed tracheostomy tube and advanced to visualize the anselmo. The scope was withdrawn, visualizing the tracheostomy site from below again with no active bleeding present. Tracheostomy tube was secured to anterior neck using 0 silk suture at 2 points. Trach dressings and tie were applied. The patient tolerated this procedure without any apparent complication. I turned my attention to the abdomen, where I will proceed with placement of percutaneous endoscopic gastrostomy tube. At this juncture, a mouth guard was put in place. Endoscope was introduced orally and advanced to intubate the esophagus. By gentle insufflation, the scope was directed into the gastric lumen, which was then insufflated. The scope was advanced through the patent pylorus into proximal duodenum, finding no peptic ulcerative disease. The scope was withdrawn back into the gastric lumen and transilluminated in the left upper quadrant and an area chosen for placement of the gastrostomy tube. The abdomen was then widely sterilely prepped and draped in the usual fashion. The skin in the left upper quadrant was anesthetized with 1% lidocaine. A stab incision was made using an 11 scalpel. Introducer needle was inserted through this incision and advanced into the gastric lumen visualized by endoscopy. Guidewire was advanced through this needle into the gastric lumen and captured with an Endo Snare. The guidewire was pulled out with the endoscope orally. The guidewire was connected to a 20-Azeri gastrostomy tube. The distal end of the guidewire was pulled out through the stab incision and the abdomen, leaving the mushroom end of the gastrostomy tube, abutting the gastric mucosa within the lumen as visualized by endoscopy. The gastrostomy tube was fashioned to length and secured to the anterior abdominal wall at 3 cm using a bolster and dressing. The endoscope was reintroduced through the gastric lumen, visualizing the proper sitting of the gastrostomy tube. No active bleeding noted. The stomach was desufflated. Endoscope was withdrawn, visualizing intact esophageal mucosa. The patient tolerated this operation without any apparent complication and remained hemodynamically stable following completion of the procedure. Job ID: [id number]
[2020-01-14] MEDS: Morphine 2 MG/ML SYRINGE SLOW IVP PRN (16:11)
[2020-01-14] MEDS: Cyclobenzaprine 10 MG TAB PO PRN (20:17)
[2020-01-14] MEDS: Gabapentin 300 MG CAP PO PRN (20:17)
[2020-01-14] MEDS: Atorvastatin Calcium 40 MG TAB PO SCH (20:18)
[2020-01-14] MEDS: PRE FILLED SC SCH (20:19)
[2020-01-14] MEDS: INSULIN GLARGINE SC SCH (20:19)
[2020-01-15 04:25] LABS: Anion Gap 12 mmol/L (10-20); BUN (Urea Nitrogen) 24 mg/dL (9.8-20.1); Calc. Creatinine Clearance 90 mL/min (70-130); Calcium 8.6 mg/dL (7.8-10.44); Carbon Dioxide 27 mmol/L (23-31); Chloride 112 mmol/L (98-107); Estimated GFR-MDRD 80; Glucose 162 mg/dL (83-110); Potassium 5.3 mmol/L (3.5-5.1); Sodium 146 mmol/L (136-145)
[2020-01-15 05:14] LABS: Anisocytosis SLIGHT = 6-15 cells (100X) (0-5/hpf); Band 8 % (5-11); Eosinophils 4 % (0-10); Hemoglobin 10.6 g/dL (12.0-16.0); Lymphocytes 13 % (21-51); MDiff Complete? YES; Mean Corpuscular HGB CONC 33.5 g/dL (32.0-36.0); Mean Corpuscular Hemoglobin 35.4 pg (27.0-31.0); Mean Platelet Volume 11.1 fL (7.4-10.4); Monocytes 3 % (0-10); Myelocyte 1 % (0-0); Neutrophil 71 % (42-75); Platelet Count 232 thou/uL (130-400); White Blood Cell (WBC) Count 11.9 thou/uL (4.8-10.8)
[2020-01-15] MEDS: Levothyroxine 150 MCG TAB PO SCH (05:15)
--- NOTE | 2020-01-15 07:11 | PDOC.FM ---
- Subjective Subjective: NAEO. Pt on precedex for sedation. Responsive to voice, able to follow motor commands. Currently on mech vent through tracheostomy - Objective MAR Reviewed: Yes Vital Signs & Weight: Vital Signs (12 hours) Temp Pulse Resp BP Pulse Ox 01/15/20 07:00 98.9 F 01/15/20 06:49 80 136/81 01/15/20 06:00 15 01/15/20 04:00 97.8 F 15 01/15/20 03:04 77 152/76 H 01/15/20 02:00 17 01/15/20 00:00 98.0 F 01/14/20 23:59 15 01/14/20 22:09 77 152/79 H 01/14/20 22:00 21 H 01/14/20 20:18 70 158/82 H 01/14/20 20:00 15 100 Weight Admit Weight 103.9 kg Weight 108.346 kg Most Recent Monitor Data Heart Rate from ECG 76 NIBP 155/89 NIBP BP-Mean 111 Respiration from ECG 22 SpO2 98 I&O: 01/14/20 01/15/20 01/16/20 06:59 06:59 06:59 Intake Total 3313.5 848.9 0 Output Total 1140 2020 40 Balance 2173.5 -1171.1 -40 Result Diagrams: 01/15/20 03:36 01/15/20 03:36 Phys Exam - Physical Examination Constitutional: NAD HEENT: PERRLA tracheostomy on mech vent Respiratory: no wheezing Cardiovascular: RRR, no significant murmur Gastrointestinal: soft 1+ b/l edema Neurological: moves all 4 limbs Dx/Plan (1) (HFpEF) heart failure with preserved ejection fraction Code(s): I50.30 - UNSPECIFIED DIASTOLIC (CONGESTIVE) HEART FAILURE Status: Acute (2) Hypercapnic respiratory failure Code(s): J96.92 - RESPIRATORY FAILURE, UNSPECIFIED WITH HYPERCAPNIA Status: Acute (3) Palliative care encounter Code(s): Z51.5 - ENCOUNTER FOR PALLIATIVE CARE Status: Acute (4) Physical deconditioning Code(s): R53.81 - OTHER MALAISE Status: Acute (5) CHF (congestive heart failure) Code(s): I50.9 - HEART FAILURE, UNSPECIFIED Status: Chronic - Plan Plan: Acute hypoxic respiratory failure 2/2 acute HFrEF exacerbation on mechanical ventilation - intubated, sedation protocol on precedex - Cardiology following - Strict I/O. lasix, monitor bicarb, diamox - Tube feeds, sugar free - SIMV, FiO2 30, TV 375, RR15, PEEP 5, Ppeak 25, Psupp 14 - s/p trach & peg on 01/13 Pseudomonas ventilator associated pneumonia - Afebrile and not requiring tylenol since 01/07 - s/p 7 day merem course Hypernatremia -Improving -Continue TF and free water flushes -Slowly correct, almost at goal Mixed acid base disturbance - improved, continue to monitor DERICK, resolved - Stable. HLD -Continue statin HTN -Continue home medications Hypothyroid -continue home medications DM2 - Hyperglycemic - Glargine- titrate up insulin - Goal <180 RIMA - aware Bladder cancer, s/p resection Code: Full Lines/Drains: OGT, ET, PIV, Midline, Rodrigez IVF: SL. ppx: lovenox, protonix Nutrition: OGT feeds at 30cc/hr free water flushes 90cc q6hr 01/12 Summary: 1) Glucose at goal yesterday but also NPO. Monitor & titrate Lantus as needed. 2) CXR appears mildly improved from yesterday's. s/p trach & peg 01/13, pending LTAC placement. 3)Continue free water flushes for hypernatremia which is slowly improving and stable. Lasix, held, will need to closely monitor fluid status 4) Elevated BPs 140-150s/80. Still with free water deficit and hypernatremia so will hold lasix. Will inc. hydralazine. Addendum - Attending - Attending Attestation Date/Time: 01/15/20 1887 I personally evaluated the patient and discussed the management with Dr. Rodgers I agree with the History, Examination, Assessment and Plan documented above with any addition or exceptions noted below. 84 yo F with chronic respiratory failure after CHF exacerbation as well as VAP 2 /2 pseudomonas s/p meropenem discontinued. S/p trach and peg POD1. Appreciate pulm support. Will continue to work with CM to achieve LTAC placement.
[2020-01-15] MEDS: Senokot S 8.6-50 MG TAB PO SCH ×2 (07:25→20:07)
[2020-01-15] MEDS: Aspirin 81 mg Enteric Coated Tablet PO SCH (07:25)
[2020-01-15] MEDS: Ascorbic Acid 500 mg Chewable Tablet PO SCH (07:25)
[2020-01-15] MEDS: Zinc Sulfate 220 MG CAP PO SCH (07:25)
[2020-01-15] MEDS: Calcium Carbonate 500 MG TAB PO SCH (07:25)
[2020-01-15] MEDS: Magnesium Oxide 400 MG TAB PO SCH (07:25)
[2020-01-15] MEDS: Carvedilol 25 MG TAB PO SCH ×3 (07:26→20:08)
[2020-01-15] MEDS: Fish Oil 1,000 MG CAP PO SCH (07:26)
[2020-01-15] MEDS: Bisacodyl 5 MG TAB PO SCH ×3 (07:26→15:46)
[2020-01-15] MEDS: Ezetimibe 10 MG TAB PO SCH (07:26)
[2020-01-15] MEDS: Spironolactone 25 MG TAB PO SCH (07:27)
[2020-01-15] MEDS: Polyethylene Glycol 3350 17 GM Packet PER TUBE SCH (07:27)
[2020-01-15] MEDS: Pantoprazole 40 MG GRANULES PACKET PER TUBE SCH (07:27)
[2020-01-15] MEDS: Enoxaparin Sodium 40 MG/0.4 ML SYRINGE SC SCH (07:27)
[2020-01-15] MEDS: Artificial Tear Sol 15 ML BOT EA EYE SCH (07:28)
[2020-01-15] MEDS: acetaZOLAMIDE Sodium 500 mg Vial IVP SCH (07:28)
[2020-01-15] MEDS: hydrALAZINE 25 MG TAB PO SCH ×4 (07:30→20:07)
[2020-01-15] MEDS: Isosorbide Dinitrate 20 MG TAB PO SCH ×2 (07:33→20:08)
[2020-01-15] MEDS: Sotalol HCl 80 MG TAB PO SCH ×2 (07:33→20:07)
[2020-01-15] MEDS: Sterile Water 10 ML VIAL IVP SCH ×4 (07:47→20:12)
[2020-01-15] MEDS: Insulin Glargine 32 UNITS in Pre-Filled Syringe 1 EACH SC SCH (08:52)
--- NOTE | 2020-01-15 08:54 | RAD ---
CHEST 1 VIEW: Date: 01/15/2020 HISTORY: Pneumonia. COMPARISON: 01/14/2020. FINDINGS/IMPRESSION: Left ICD. Tracheostomy tube in place. Cardiomegaly with bilateral vascular congestion and some patchy alveolar and ground-glass opacity changes throughout both lungs with evidence for bilateral pleural effusions, concerning for the possibility of congestive heart failure. Continue short-term follow-up. POS: [facility]
[2020-01-15] MEDS: Multivits W-Minerals Liquid 15 ML LIQ PER TUBE SCH (09:28)
[2020-01-15] MEDS: Gabapentin 300 MG CAP PO PRN ×2 (09:51→20:07)
[2020-01-15] MEDS: Cyclobenzaprine 10 MG TAB PO PRN ×2 (09:51→20:08)
--- NOTE | 2020-01-15 12:05 | PDOC.CPN ---
- Subjective Date: 01/15/20 Time: 12:02 Interval history: Sedated with precedex NBo changes - Objective Allergies/Adverse Reactions: Allergies Allergy/AdvReac Type Severity Reaction Status Date / Time Penicillins Allergy Severe Hives Verified 11/14/19 12:54 verapamil HCl [From Calan] Allergy Severe Swollen Verified 11/14/19 12:54 Lips codeine Allergy Intermediate Rash Verified 11/14/19 12:54 tramadol Allergy Intermediate Rash Verified 11/14/19 12:54 ROYAL Inhibitors Allergy COUGH Verified 11/14/19 12:54 ciprofloxacin Allergy Nausea Verified 11/14/19 12:54 morphine Allergy Nausea Verified 11/14/19 12:54 nitrofurantoin Allergy Nausea Verified 11/14/19 12:54 [From Macrobid] Visit Medications: Current Medications Acetaminophen (Tylenol) 650 mg PO Q4H PRN PRN Reason: Pain 1-3 Last Admin: 01/08/20 00:20 Dose: 650 mg Acetaminophen (Tylenol) 650 mg WA Q4H PRN PRN Reason: Headache/Fever or Pain Acetazolamide Sodium (Diamox) 500 mg IVP DAILY [facility] Last Admin: 01/15/20 07:28 Dose: 500 mg Albuterol Sulfate (Proventil Hfa) 2 puff INH Q6H PRN PRN Reason: SOB &/or Wheezing Artificial Tears (Liquitears 15ml Bottle) 1 drop EA EYE DAILY [facility] Last Admin: 01/15/20 07:28 Dose: 2 drp Ascorbic Acid (Vitamin C) 500 mg PO DAILY [facility] Last Admin: 01/15/20 07:25 Dose: 500 mg Aspirin (Ecotrin) 81 mg PO QAM [facility] Last Admin: 01/15/20 07:25 Dose: 81 mg Atorvastatin Calcium (Lipitor) 80 mg PO HS [facility] Last Admin: 01/14/20 20:18 Dose: 80 mg Bisacodyl (Dulcolax) 5 mg PO TID-WM [facility] Last Admin: 01/15/20 07:26 Dose: 5 mg Bisacodyl (Dulcolax) 10 mg WA Q8H PRN PRN Reason: Constipation Calcium Carbonate (Tums) 1,000 mg PO Q4H PRN PRN Reason: Heartburn or Indigestion Calcium Carbonate (Oscal-500) 500 mg PO DAILY [facility] Last Admin: 01/15/20 07:25 Dose: 500 mg Carvedilol (Coreg) 25 mg PO TID [facility] Last Admin: 01/15/20 07:26 Dose: 25 mg Cyclobenzaprine HCl (Flexeril) 5 mg PO TID PRN PRN Reason: Muscle Spasm Last Admin: 01/15/20 09:51 Dose: 5 mg Dextrose/Water (Dextrose 50%) 25 gm SLOW IVP PRN PRN PRN Reason: Hypoglycemia Diclofenac Sodium (Voltaren) 100 gm TP DAILYPRN PRN PRN Reason: Pain Diltiazem HCl (Cardizem Cd) 180 mg PO DAILY [facility] Last Admin: 01/15/20 07:26 Dose: 180 mg Ezetimibe (Zetia) 10 mg PO DAILY [facility] Last Admin: 01/15/20 07:26 Dose: 10 mg Enoxaparin Sodium (Lovenox) 40 mg SC 0900 [facility] Last Admin: 01/15/20 07:27 Dose: 40 mg Fish Oil (Fish Oil) 1,000 mg PO DAILY [facility] Last Admin: 01/15/20 07:26 Dose: 1,000 mg Folic Acid (Folvite) 1 mg PO DAILY [facility] Gabapentin (Neurontin) 300 mg PO TIDPRN PRN PRN Reason: Mild-Moderate Pain (1-5) Last Admin: 01/15/20 09:51 Dose: 300 mg Glucagon (Glucagon) 1 mg IM PRN PRN PRN Reason: Hypoglycemia Hydralazine HCl (Apresoline) 10 mg SLOW IVP Q4H PRN PRN Reason: SBP > 180 Last Admin: 01/04/20 12:09 Dose: 10 mg Hydralazine HCl (Apresoline) 100 mg PO TID [facility] Last Admin: 01/15/20 07:43 Dose: 100 mg Dextrose/Water (D5w) 1,000 mls @ 0 mls/hr IV .Q0M PRN PRN Reason: Hypoglycemia Dexmedetomidine HCl 400 mcg/ (Sodium Chloride) 100 mls @ 0 mls/hr IVPB INF [facility] ; Protocol Last Admin: 01/15/20 04:19 Dose: 100 mls Insulin Glargine 32 units/ (Miscellaneous Medication) 0.32 mls @ 0 mls/hr SC QAM [facility] Last Admin: 01/15/20 08:52 Dose: Not Given Insulin Glargine 31 units/ (Miscellaneous Medication) 0.31 mls @ 0 mls/hr SC HS [facility] Last Admin: 01/14/20 20:19 Dose: Not Given Insulin Human Lispro (Humalog) 0 units SC .MODERATE SLIDING SC PRN PRN Reason: Moderate Correctional Scale Last Admin: 01/14/20 04:04 Dose: 2 unit Insulin Human Lispro (Humalog) 0 units SC .BEDTIME SLIDING SC PRN PRN Reason: Bedtime Correctional Scale Last Admin: 01/05/20 21:41 Dose: 2 unit Iron/Minerals/Multivitamins (Certa Ivone Liquid) 15 ml PER TUBE DAILY [facility] Last Admin: 01/15/20 09:28 Dose: 15 ml Isosorbide Dinitrate (Isordil) 20 mg PO BID [facility] Last Admin: 01/15/20 07:33 Dose: 20 mg Levothyroxine Sodium (Synthroid) 150 mcg PO 0600 [facility] Last Admin: 01/15/20 05:15 Dose: 150 mcg Magnesium Oxide (Magnesium Oxide) 400 mg PO DAILY [facility] Last Admin: 01/15/20 07:25 Dose: 400 mg Ondansetron HCl (Zofran Odt) 4 mg PO Q6H PRN PRN Reason: Nausea/Vomiting Last Admin: 12/30/19 12:03 Dose: 4 mg Pantoprazole Sodium (Protonix) 40 mg PER TUBE DAILY [facility] Last Admin: 01/15/20 07:27 Dose: 40 mg Polyethylene Glycol (Miralax) 17 gm PER TUBE DAILY [facility] Last Admin: 01/15/20 07:27 Dose: 17 gm Potassium Chloride (Klor-Con) 40 meq PO QAM-WM [facility] Last Admin: 01/15/20 07:28 Dose: Not Given Senna/Docusate Sodium (Senokot S) 2 tab PO BID [facility] Last Admin: 01/15/20 07:25 Dose: 2 tab Sodium Chloride ([place] Nasal Gerber 0.65%) 1 ml EA NARE TIDPRN PRN PRN Reason: Nasal Congestion Last Admin: 12/30/19 03:05 Dose: 1 spray Sodium Chloride (Flush - Normal Saline) 10 ml IVF Q12HR [facility] Last Admin: 01/15/20 07:47 Dose: 10 ml Sodium Chloride (Flush - Normal Saline) 10 ml IVF PRN PRN PRN Reason: Saline Flush Last Admin: 01/02/20 10:34 Dose: 10 ml Sotalol HCl (Betapace) 80 mg PO BID [facility] Last Admin: 01/15/20 07:33 Dose: 80 mg Spironolactone (Aldactone) 25 mg PO QAM-WM [facility] Last Admin: 01/15/20 07:27 Dose: 25 mg Sterile Water (Water For Injection) 10 ml IVP TID [facility] Last Admin: 01/15/20 07:47 Dose: Not Given Sterile Water (Water For Injection) 10 ml IVP DAILY [facility] Last Admin: 01/15/20 07:47 Dose: 10 ml Zinc Sulfate (Zinc Sulfate) 220 mg PO DAILY [facility] Last Admin: 01/15/20 07:25 Dose: 220 mg Vital Signs & Weight: Vital Signs Temp Pulse Resp BP Pulse Ox 01/15/20 10:49 77 117/67 01/15/20 07:48 98.9 F 01/15/20 07:43 80 136/81 01/15/20 07:33 80 136/81 01/15/20 07:04 18 98 01/15/20 07:00 98.9 F 01/15/20 06:49 80 136/81 01/15/20 06:00 15 01/15/20 04:00 97.8 F 15 01/15/20 03:04 77 152/76 H 01/15/20 02:00 17 Admit Weight 229 lb 0.964 oz Weight 238 lb 13.807 oz - Physical Exam General: no apparent distress Neck: supple neck Cardiac: no murmur, regular rate, regular rhythm Lungs: normal exam Abdomen: soft - Labs Result Diagrams: 01/15/20 03:36 01/15/20 03:36 Troponin/CKMB CK-MB (CK-2) 6.3 ng/mL (0-6.6) 12/30/19 23:25 Troponin I 0.105 ng/mL (< 0.028) H 12/30/19 23:25 - Assessment/Plan Assessment/Plan: CHF Respiratory failure Trach Strict I/o Vent per pulmonary Vent associated pneuomonia on Abx On coreg, ASA, statin, lasix, hydralazine and ISDN Pt to transfer to LTAC tomorrow
[2020-01-15] MEDS ORDERED: Morphine 2 MG/ML SYRINGE SLOW IVP PRN (12:28)
--- NOTE | 2020-01-15 13:09 | PRG ---
DATE OF SERVICE: 01/15/2020 SUBJECTIVE: Krista Mayfield remains hemodynamically stable. OBJECTIVE: VITAL SIGNS: Heart rate is in the 70s, blood pressure is 142/78, respiratory rate is in the 20s, and oximetry is 97, explained to family we were starting to make slow ventilator decreases. She is being referred to a long-term acute care. CHEST: She still has a hazy alveolar infiltrate, more to the right base than her left. LUNGS: Clear anteriorly. HEART: Regular rhythm. ABDOMEN: Soft. EXTREMITIES: Without edema. LABORATORY DATA: White count 11.9, hemoglobin 10.6, and platelets 232. Sodium 146, potassium 5.3, chloride 112, bicarb 27, BUN 24, and creatinine 0.83. IMPRESSION: Respiratory failure associated with pneumonia. She has tracheostomy and feeding tube in place. She is borderline hyperkalemic. I will review medicines to make sure we are not giving her anything that would increase her potassium. We will continue to follow, pending placement. Job ID: [id number]
--- NOTE | 2020-01-15 15:34 | PRG ---
DATE OF SERVICE: 01/15/2020 SUBJECTIVE: Ms. Mayfield is an 84-year-old woman, who is postop day #1 status post percutaneous tracheostomy tube and percutaneous endoscopic gastrostomy tube placement. The patient remains on mechanical ventilator support. She awakens to voice. She denies any pain. She has remained hemodynamically stable and afebrile since surgery yesterday. OBJECTIVE: HEENT: Tracheostomy site is clean and dry. No hematoma or active bleeding present. ABDOMEN: Soft and nondistended. The gastrostomy tube site is clean and dry. No active bleeding present. PLAN: The patient is hemodynamically stable. The tracheostomy sutures may be removed in 5 days. Gastrostomy tube is good to use at the discretion of the primary service. No further surgical indication at this time. General Surgery will sign off and be available to re-evaluate the patient on demand. Job ID: [id number]
[2020-01-15 19:52] LABS: SARS-CoV-2 MS2 Positive; SARS-CoV-2 N Gene Negative; SARS-CoV-2 S Gene Negative; SARS-CoV-2 orf1ab Negative
[2020-01-15] MEDS: Calcium Carbonate 500 MG ChewTAB PO PRN (20:07)
[2020-01-15] MEDS: Atorvastatin Calcium 40 MG TAB PO SCH (20:08)
[2020-01-15] MEDS: INSULIN GLARGINE SC SCH (20:11)
[2020-01-15] MEDS: PRE FILLED SC SCH (20:11)
[2020-01-16 05:14] VITALS: BMI 40.1
[2020-01-16] MEDS: Levothyroxine 150 MCG TAB PO SCH (05:15)
[2020-01-16 05:18] LABS: Anion Gap 7 mmol/L (10-20); BUN (Urea Nitrogen) 25 mg/dL (9.8-20.1); Calc. Creatinine Clearance 85 mL/min (70-130); Calcium 8.8 mg/dL (7.8-10.44); Carbon Dioxide 30 mmol/L (23-31); Chloride 112 mmol/L (98-107); Estimated GFR-MDRD 80; Glucose 132 mg/dL (83-110); Potassium 4.3 mmol/L (3.5-5.1); Sodium 145 mmol/L (136-145)
[2020-01-16 05:41] LABS: #Basophils 0.1 thou/uL (0.0-0.2); #Eosinphils 0.2 thou/uL (0.0-0.7); #Monocytes 0.6 thou/uL (0.11-0.59); #Neutrophils 8.3 thou/uL (1.40-6.50); %Basophils 0.5 % (0.0-1.0); %Eosinophils 2.1 % (0.0-10.0); %Lymphocytes 17.7 % (21.0-51.0); %Monocytes 5.6 % (0.0-10.0); %Neutrophils 74.2 % (42.0-75.0); Hemoglobin 10.1 g/dL (12.0-16.0); Mean Corpuscular HGB CONC 30.2 g/dL (32.0-36.0); Mean Corpuscular Hemoglobin 30.1 pg (27.0-31.0); Mean Corpuscular Volume 99.7 fL (78.0-98.0); Platelet Count 262 thou/uL (130-400); RBC Distribution Width 14.6 % (11.5-14.5); Red Blood Cell (RBC) Count 3.37 mill/uL (4.20-5.40); White Blood Cell (WBC) Count 11.2 thou/uL (4.8-10.8)
--- NOTE | 2020-01-16 06:39 | PDOC.FM ---
- Subjective Subjective: NAEO, BPs a little elevated. Doing well overall per nursing. Discussed with daughter approval for LTAC pending move today or tomorrow if patient can be successfully weaned off of sedation. - Objective Vital Signs & Weight: Vital Signs (12 hours) Temp Pulse Resp BP Pulse Ox 01/16/20 06:00 24 H 01/16/20 04:00 98.4 F 17 01/16/20 02:49 70 145/72 H 01/16/20 02:00 14 01/16/20 00:00 98.5 F 01/15/20 23:53 19 01/15/20 22:39 70 142/68 H 01/15/20 22:00 21 H 01/15/20 20:07 80 150/79 H 01/15/20 20:00 30 H 100 01/15/20 19:00 98.5 F Weight Admit Weight 103.9 kg Weight 102.8 kg Most Recent Monitor Data Heart Rate from ECG 78 NIBP 167/82 NIBP BP-Mean 110 Respiration from ECG 19 SpO2 97 I&O: 01/14/20 01/15/20 01/16/20 06:59 06:59 06:59 Intake Total 3313.5 848.9 1630.6 Output Total 1140 2020 925 Balance 2173.5 -1171.1 705.6 Result Diagrams: 01/16/20 04:00 01/16/20 04:00 Phys Exam - Physical Examination Constitutional: NAD responive to verbal command, trach & peg in place Respiratory: no wheezing Cardiovascular: RRR, no significant murmur Gastrointestinal: soft, non-tender Musculoskeletal: no edema Neurological: non-focal, moves all 4 limbs Deviation from normal: nods yes and no to questions Dx/Plan (1) (HFpEF) heart failure with preserved ejection fraction Code(s): I50.30 - UNSPECIFIED DIASTOLIC (CONGESTIVE) HEART FAILURE Status: Acute (2) Hypercapnic respiratory failure Code(s): J96.92 - RESPIRATORY FAILURE, UNSPECIFIED WITH HYPERCAPNIA Status: Acute (3) Palliative care encounter Code(s): Z51.5 - ENCOUNTER FOR PALLIATIVE CARE Status: Acute (4) Physical deconditioning Code(s): R53.81 - OTHER MALAISE Status: Acute (5) CHF (congestive heart failure) Code(s): I50.9 - HEART FAILURE, UNSPECIFIED Status: Chronic - Plan Plan: Acute hypoxic respiratory failure 2/2 acute HFrEF exacerbation on mechanical ventilation - intubated, sedation protocol on precedex - Cardiology following - Strict I/O. lasix, monitor bicarb, diamox - Tube feeds, sugar free - SIMV, FiO2 30, TV 375, RR15, PEEP 5, Ppeak 25, Psupp 14 - s/p trach & peg on 01/13 Pseudomonas ventilator associated pneumonia - Afebrile and not requiring tylenol since 01/07 - s/p 7 day merem course Hypernatremia -resolved Mixed acid base disturbance - improved, continue to monitor DERICK, resolved - Stable. HLD -Continue statin HTN -Continue home medications Hypothyroid -continue home medications DM2 - Hyperglycemic - Glargine- titrate up insulin - Goal <180 RIMA - aware Bladder cancer, s/p resection Code: Full Lines/Drains: OGT, ET, PIV, Midline, Rodrigez IVF: SL. ppx: lovenox, protonix Nutrition: OGT feeds at 30cc/hr free water flushes 90cc q6hr 01/12 Summary: 1) Glucose at goal, continue current regimen 2) s/p trach & peg , pending LTAC placement. Will wean off of precedex, ativan on board PRN for anxiety 3) Elevated BPs 140-150s/80. Inc dilt Addendum - Attending - Attending Attestation Date/Time: 01/16/20 [id number] I personally evaluated the patient and discussed the management with Dr. Rodgers I agree with the History, Examination, Assessment and Plan documented above with any addition or exceptions noted below. 84 yo F with chronic respiratory failure after CHF exacerbation as well as VAP 2 /2 pseudomonas s/p meropenem discontinued. S/p trach and peg POD2. Weaning down on precedex. Will start home xanax. LTAC placement obtained, as long as able wean of precedex patient is stable for transfer to LTAC.
[2020-01-16] MEDS: Spironolactone 25 MG TAB PO SCH (07:57)
[2020-01-16] MEDS: Bisacodyl 5 MG TAB PO SCH ×3 (07:57→16:34)
[2020-01-16] MEDS: hydrALAZINE 25 MG TAB PO SCH ×3 (08:00→19:42)
[2020-01-16] MEDS: Ascorbic Acid 500 mg Chewable Tablet PO SCH (08:01)
[2020-01-16] MEDS: Polyethylene Glycol 3350 17 GM Packet PER TUBE SCH (08:01)
[2020-01-16] MEDS: Fish Oil 1,000 MG CAP PO SCH (08:09)
[2020-01-16] MEDS: Zinc Sulfate 220 MG CAP PO SCH (08:09)
[2020-01-16] MEDS: Carvedilol 25 MG TAB PO SCH ×3 (08:09→19:43)
[2020-01-16] MEDS: Sotalol HCl 80 MG TAB PO SCH ×2 (08:09→19:42)
[2020-01-16] MEDS: Pantoprazole 40 MG GRANULES PACKET PER TUBE SCH (08:09)
[2020-01-16] MEDS: Ezetimibe 10 MG TAB PO SCH (08:10)
[2020-01-16] MEDS: Aspirin 81 mg Enteric Coated Tablet PO SCH (08:10)
[2020-01-16] MEDS: Senokot S 8.6-50 MG TAB PO SCH ×2 (08:14→19:41)
[2020-01-16] MEDS: Calcium Carbonate 500 MG TAB PO SCH (08:14)
[2020-01-16] MEDS: Multivits W-Minerals Liquid 15 ML LIQ PER TUBE SCH (08:14)
[2020-01-16] MEDS: Isosorbide Dinitrate 20 MG TAB PO SCH ×2 (08:15→19:42)
[2020-01-16] MEDS: Magnesium Oxide 400 MG TAB PO SCH (08:15)
[2020-01-16] MEDS: Cyclobenzaprine 10 MG TAB PO PRN ×2 (08:26→19:42)
[2020-01-16] MEDS: Gabapentin 300 MG CAP PO PRN ×2 (08:26→19:41)
[2020-01-16] MEDS: Enoxaparin Sodium 40 MG/0.4 ML SYRINGE SC SCH (08:41)
[2020-01-16] MEDS: Insulin Glargine 32 UNITS in Pre-Filled Syringe 1 EACH SC SCH (08:42)
[2020-01-16] MEDS ORDERED: Folic Acid 1 MG TAB PO SCH (09:00)
[2020-01-16] MEDS: HumaLOG 300 UNITS/3 ML VIAL SC PRN ×2 (09:19→16:16)
[2020-01-16] MEDS: Artificial Tear Sol 15 ML BOT EA EYE SCH (09:23)
[2020-01-16] MEDS: Sterile Water 10 ML VIAL IVP SCH ×3 (09:26→15:00)
[2020-01-16] MEDS: ALPRAZolam 0.5 MG TAB PO PRN ×3 (10:23→19:42)
--- NOTE | 2020-01-16 13:07 | PRG ---
DATE OF SERVICE: 01/16/2020 SUBJECTIVE: Krista Mayfield is more alert today. Her Precedex has been decreased to minimal now. She nods yes and no. OBJECTIVE: VITAL SIGNS: She is afebrile, heart rate is , respiratory rate is 30, blood pressure 131/62. LUNGS: Clear. HEART: Regular rhythm. ABDOMEN: Soft. EXTREMITIES: Without asymmetry. Intake and output positive 705. LABORATORY DATA: White count 11.2, hemoglobin 10.1, platelets 262. Sodium 145, potassium 4.3, chloride 112, bicarb 30, BUN 25, creatinine 0.83. IMPRESSION: Respiratory failure, now with tracheostomy feeding tube in place. She has been accepted to long-term acute care. I met with family. I do believe she is stable for a ground transfer to long-term acute care. She can stay on low-dose Precedex for transfer as it will minimize the anxiety that may occur with an ambulance ride in my opinion. Job ID: [id number]
[2020-01-16] MEDS: Bacitracin 1 PK TOP SCH ×2 (14:59→19:43)
[2020-01-16] MEDS: Acetaminophen 325 MG TAB PO PRN (19:41)
[2020-01-16] MEDS: Calcium Carbonate 500 MG ChewTAB PO PRN (19:41)
[2020-01-16] MEDS: Atorvastatin Calcium 40 MG TAB PO SCH (19:42)
[2020-01-16] MEDS: INSULIN GLARGINE SC SCH (19:43)
[2020-01-16] MEDS: PRE FILLED SC SCH (19:43)
[2020-01-16 20:04] VITALS: BP 144/79
[2020-01-16 20:10] VITALS: TEMP 100
--- NOTE | 2020-01-18 13:55 | DIS ---
DATE OF ADMISSION: 12/29/2019 DATE OF DISCHARGE: 01/16/2020 ADMITTING ATTENDING: Amina Sesay MD DISCHARGE ATTENDING: Froylan Berry MD RESIDENT: Tatiana Rodgers MD, PGY-2 CONSULTS: 1. Pulmonology, Dr. Amato. 2. Cardiology, Dr. Ferrara. 3. General Surgery, Dr. Ibarra. 4. Cardiac rehab. 5. Dietary. 6. Heart failure management. 7. Palliative care. PRIMARY DIAGNOSES: 1. Acute hypoxic hypercapnic respiratory failure secondary to acute congestive heart failure exacerbation, on mechanical ventilation. 2. Status post trach and PEG secondary to above. 3. Pseudomonas ventilator associated pneumonia, status post treatment. 4. History of congestive heart failure, PEF with new reduced ejection fraction. 5. Hypertension. 6. Resolved hypernatremia secondary to free water loss. 7. Acute kidney injury, resolved. SECONDARY DIAGNOSES: 1. Insulin-dependent type 2 diabetes. 2. RIMA. 3. Bladder cancer, status post resection. 4. Chronic hypertension. 5. Hyperlipidemia. 6. CKD. PROCEDURES AND IMAGIN. Transthoracic echo, ejection fraction 30% to 35%. Defibrillator in right ventricle. Mild mitral regurg. Severe tricuspid regurg. 2. Chest x-ray on 01/15/2020, left ICD. Tracheostomy tube in place. Cardiomegaly with bilateral vascular congestion. Patchy alveolar ground-glass opacities consistent with bilateral pleural effusions. 3. Bronchoscopy results on 01/14/2020 showed Pseudomonas aeruginosa, sensitive to Zosyn and Merrem. 4. Percutaneous tracheostomy tube placement and percutaneous endoscopic gastrostomy tube placement for acute respiratory failure. DISCHARGE MEDICATIONS: 1. Atorvastatin 80 mg p.o. at bedtime. 2. Synthroid 125 mcg p.o. daily. 3. Voltaren gel 100 g topical p.r.n. 4. Coreg 25 mg p.o. b.i.d. 5. Proventil 2 puffs inhaled q.6 hours p.r.n. for shortness of breath or wheezing. 6. Zetia 10 mg p.o. daily. 7. Gabapentin 300 mg p.o. t.i.d. 8. Multivitamin. 9. Aspirin 81 mg p.o. q.a.m. 10. Vitamin C 500 mg p.o. daily. 11. Fish oil one cap p.o. daily. 12. Magnesium 400 mg p.o. daily. 13. Calcium 500 mg p.o. daily. 14. Dulcolax 5 mg p.o. t.i.d. with meals. 15. Protonix 40 mg p.o. daily. 16. Artificial Tears drops one drop in each eye daily. 17. Potassium chloride 10 mEq p.o. daily. 18. Lasix 40 mg p.o. b.i.d. 19. Flexeril 5 mg p.o. t.i.d. p.r.n. 20. Tylenol 650 mg p.o. q.4 hours p.r.n. for pain or fever. 21. Folic acid 1 mg p.o. daily. 22. Hydralazine 10 mg IV push q.4 hours p.r.n. for systolic blood pressure greater than 180 or diastolic greater than 110. 23. Hydralazine 100 mg p.o. t.i.d. 24. Lantus 32 units subcu q.a.m. 25. Lantus 31 units subcu at bedtime. 26. Isosorbide dinitrate 20 mg p.o. b.i.d. 27. MiraLAX. 28. Senokot. 29. [place] nasal spray. 30. Spironolactone 25 mg p.o. q.a.m. with meal. 31. Suppository Tylenol. 32. Xanax 0.5 mg p.o. t.i.d. p.r.n. for anxiety and agitation. 33. Bacitracin topical ointment. 34. Diltiazem 240 mg p.o. daily. 35. Sotalol 80 mg p.o. b.i.d. DISCONTINUED MEDICATIONS: 1. Lispro. 2. Spironolactone 50 mg p.o. q.a.m. with meal. 3. Sotalol 120 mg p.o. b.i.d. 4. Lasix HISTORY OF PRESENT ILLNESS/HOSPITAL COURSE: Ms. Krista Mayfield is an 84-year-old female with a history of heart failure with preserved ejection fraction, hypertension, and type 2 diabetes, presented for worsening shortness of breath over several weeks. She was found to be in acute heart failure exacerbation and admitted for diuresing. She decompensated on day 2 of hospitalization when she was found to be lethargic. ABG showed worsening hypercapnic respiratory status and was transferred to the ICU and started on BiPAP. Unfortunately, the patient did not tolerate BiPAP well and underwent intubation. It is unsure as to why she decompensated, but could be due to underlying history of RIMA and likely worsening heart failure. Echo did show new onset reduced ejection fraction, heart failure, and Cardiology was consulted. Unfortunately, she was not able to be weaned off the ventilator and developed pseudomonas-associated pneumonia which she was treated for. She did eventually have to receive trach and PEG after 14 days on the ventilator per family's decision. Other new thing of concern during this ICU stay was correction of her hypernatremia secondary to free water loss. In addition, she had high blood pressures since her medications were titrated as such. Due to multiple comorbidities and overall weakness, the patient did not tolerate a trial spontaneous breathing trial well and it was decided that she would transition to an LTAC in the hopes that she would be able to be weaned off the ventilator. This was discussed in detail with family and Pulmonology. She will likely need continued diuresis, which was temporally held due to her severe hypernatremia. DISPOSITION: Stable, but guarded. DISCHARGE INSTRUCTIONS: 1. Location: LTAC in [place]. 2. Diet: Heart healthy, fluid restricted, carb consistent. 3. Activity: PT, OT, ST. FOLLOWUP: 1. Please follow up with PCP if able to be discharged from LTAC. 2. Please follow up with assistant operator. 3. Please continue medical care regimen at LTAC 4. Will likely need continuous up titration of her anxiety medication, antihypertensives, and insulin in the LTAC. 5. Would recommend having someone from palliative, discussing with the family as prognosis for the patient is not great given her multiple comorbidities. I do hope that she is able to be weaned off the ventilator. However, this could take quite some time. For any further questions, please feel free to call the Family Medicine team at [facility] in [place], [place]. Job ID: [id number] ELSA
== END 2020-01-16 20:35 | DRG 4 ==
LOC: ERS 09:37 → 2SE 13:56 → IMCU/EMU 12-30 22:39 → CCU 12-30 23:51
PROVIDERS: ADMIT Family Medicine; ATTEND Family Medicine
PROC: 0BH17EZ Insertion of Endotracheal Airway into Trachea, Via Natural or Artificial Opening (ICD-10-PCS; principal; 2019-12-31)
PROC: 5A1955Z Respiratory Ventilation, Greater than 96 Consecutive Hours (ICD-10-PCS; 2019-12-31)
PROC: 0B9D8ZZ Drainage of Right Middle Lung Lobe, Via Natural or Artificial Opening Endoscopic (ICD-10-PCS; 2020-01-07)
PROC: 0B9G8ZZ Drainage of Left Upper Lung Lobe, Via Natural or Artificial Opening Endoscopic (ICD-10-PCS; 2020-01-07)
PROC: 0B113F4 Bypass Trachea to Cutaneous with Tracheostomy Device, Percutaneous Approach (ICD-10-PCS; 2020-01-14)
PROC: 0DH63UZ Insertion of Feeding Device into Stomach, Percutaneous Approach (ICD-10-PCS; 2020-01-14)
PROC: BD12ZZZ Fluoroscopy of Stomach (ICD-10-PCS; 2020-01-14)
DX: J96.01 Acute respiratory failure with hypoxia (principal); I50.23 Acute on chronic systolic (congestive) heart failure; R40.2313 Coma scale, best motor response, none, at hospital admission; R40.2113 Coma scale, eyes open, never, at hospital admission; I48.20 Chronic atrial fibrillation, unspecified; E66.2 Morbid (severe) obesity with alveolar hypoventilation; E87.4 Mixed disorder of acid-base balance; N17.9 Acute kidney failure, unspecified; G93.40 Encephalopathy, unspecified; R04.89 Hemorrhage from other sites in respiratory passages; Z68.41 Body mass index [BMI] 40.0-44.9, adult; Z99.11 Dependence on respirator [ventilator] status; J95.851 Ventilator associated pneumonia; E87.0 Hyperosmolality and hypernatremia; Z51.5 Encounter for palliative care; Z20.828 Contact with and (suspected) exposure to other viral communicable diseases; I11.0 Hypertensive heart disease with heart failure; J96.02 Acute respiratory failure with hypercapnia; E78.5 Hyperlipidemia, unspecified; I25.5 Ischemic cardiomyopathy; E78.00 Pure hypercholesterolemia, unspecified; E03.9 Hypothyroidism, unspecified; K59.00 Constipation, unspecified; E11.69 Type 2 diabetes mellitus with other specified complication; E11.65 Type 2 diabetes mellitus with hyperglycemia; B96.5 Pseudomonas (aeruginosa) (mallei) (pseudomallei) as the cause of diseases classified elsewhere; E87.6 Hypokalemia; Y83.8 Other surgical procedures as the cause of abnormal reaction of the patient, or of later complication, without mention of misadventure at the time of the procedure; E87.5 Hyperkalemia; Z88.0 Allergy status to penicillin; Z88.5 Allergy status to narcotic agent; Z88.1 Allergy status to other antibiotic agents; Z88.8 Allergy status to other drugs, medicaments and biological substances; Z79.890 Hormone replacement therapy; Z79.4 Long term (current) use of insulin; Z79.51 Long term (current) use of inhaled steroids; Z79.899 Other long term (current) drug therapy; Z95.810 Presence of automatic (implantable) cardiac defibrillator
CPT/HCPCS: 36415; 36416; 71045; 80048; 80053; 82553; 82607; 82746; 82805; 83735; 83880; 84145; 84484; 85025; 87040; 87070; 87077; 87086; 87186; 87635; 93005; 93010; 93306; 94002; 94003; 94660; 96374; J0360; J0690; J1120; J1250; J1650; J1815; J1940; J2185; J2250; J2270; J2704; J3010; J3480; J3490; J7050; Q0162; U0003